=== PATIENT | male | born 1965 | race Caucasian/White ===

== ENCOUNTER 2019-04-14 08:40 | Emergency (ER) | payer BC ==
[~2019-04-14] VITALS: Ht 185 cm; Wt 89.0 kg
[2019-04-14] MEDS ORDERED: LACTATED RINGERS 1,000 ML IV ONE (09:04)
[2019-04-14 09:23] LABS: BASOPHILS % (AUTO) 0 % (0-10); EOSINOPHILS # (AUTO) 0.2 10^3/uL (0.0-0.3); EOSINOPHILS % (AUTO) 2 % (0-10); HEMATOCRIT 44 % (40-54); HEMOGLOBIN 15.7 G/DL (13.3-17.7); LYMPHOCYTES # (AUTO) 2.1 X 10^3 (1.0-4.0); LYMPHOCYTES % (AUTO) 23 % (12-44); MEAN CORPUSCULAR HEMOGLOBIN 36 PG (25-34); MEAN CORPUSCULAR HGB CONC 36 G/DL (32-36); MEAN CORPUSCULAR VOLUME 99 FL (80-99); MEAN PLATELET VOLUME 11.7 FL (7.4-10.4); MONOCYTES % (AUTO) 11 % (0-12); NEUTROPHILS % (AUTO) 65 % (42-75); PLATELET COUNT 179 10^3/uL (130-400); RED CELL DISTRIBUTION WIDTH 11.8 % (10.0-14.5); WHITE BLOOD COUNT 9.3 10^3/uL (4.3-11.0)
--- NOTE | 2019-04-14 09:26 | ED Neurological Problem ---
General Chief Complaint: Neurological Problems Stated Complaint: BILAT LEG NUMBNESS Nursing Triage Note: PT STATES HE HAS HAD A CHEST COLD FOR A FEW DAYS, 2 NIGHTS AGO STARTED HAVING WEAKNESS AND NUMBNESS IN BI LAT LEGS. HAD A PCN SHOT AT THE [facility] YESTERDAY FOR HIS CHEST COLD. ALSO NUMBNESS IN HANDS, NO DIFICULTY SPEAKING. Nursing Sepsis Screen: No Definite Risk Source: patient Exam Limitations: no limitations History of Present Illness Date Seen by Provider: Apr 14, 2019 Time Seen by Provider: 08:57 Initial Comments Here with report of weakness and numbness in his legs and hands. Notes that he fell twice this morning because his legs gave out. Denies any injury. States that he actually had to have help to get here because of the weakness in both of his legs. Has recently had upper respiratory infection and was seen at the [facility] yesterday. He did let them know that he had leg numbness but he did not have weakness at the time. They were concerned about him taking cough medicine. He reports that he was taking Tussin, and went through a bottle of that. Afterwards, because that wasn't working, he went to [facility]. He is taking a drink out of the bottle as needed to control his cough but he has no idea what his dosing as and how much he has taken of that. Timing/Duration: increasing, other (2 days) Severity: moderate Associated Symptoms: No fever/chills, No muscle spasms, No nausea/vomiting; numbness in legs/feet; No slurred speech; trouble walking, weakness Allergies and Home Medications Allergies Coded Allergies: No Known Drug Allergies (Unverified , 09/23/10) Patient Home Medication List Home Medication List Reviewed: Yes Review of Systems Review of Systems Constitutional: see HPI; No chills, No fever Eyes: No Symptoms Reported Ears, Nose, Mouth, Throat: denies ear pain, denies throat pain Respiratory: cough, short of breath Cardiovascular: No chest pain, No edema Gastrointestinal: No nausea, No vomiting Genitourinary: no symptoms reported Musculoskeletal: muscle pain, muscle weakness Skin: no symptoms reported Psychiatric/Neurological: Tingling, Weakness All Other Systems Reviewed Negative Unless Noted: Yes Past Xuncniz-Mvdgec-Ylstox Hx Past Med/Social Hx: Reviewed Nursing Past Med/Soc Hx Patient Social History Alcohol Use: Occasionally Uses Alcohol Beverage of Choice: Whiskey Recreational Drug Use: Yes (SMOKES 1PPD) Smoking Status: Current Everyday Smoker Type Used: Cigarettes Recent Foreign Travel: No Contact w/Someone Who Travel: No Recent Infectious Disease Expo: No Recent Hopitalizations: No Physical Abuse: No Sexual Abuse: No Mistreated: No Fear: No Seasonal Allergies Seasonal Allergies: No Past Medical History Surgeries: Yes (BI LAT CARPEL TUNNEL) Orthopedic Respiratory: No Cardiac: No Neurological: No Genitourinary: No Gastrointestinal: No Musculoskeletal: No Endocrine: No HEENT: No Cancer: No Psychosocial: No Integumentary: No Family Medical History Reviewed Nursing Family Hx Heart Disease, Cancer, Hypertension, Stroke Physical Exam Vital Signs Vital Signs - First Documented 04/14/19 08:51 Temp 36.7 Pulse 92 Resp 20 B/P (MAP) 184/110 (134) Pulse Ox 98 O2 Delivery Room Air Capillary Refill : Less Than 3 Seconds Height, Weight, BMI Height: '" Weight: lbs. oz. kg; 26.00 BMI Method: General Appearance: WD/WN, mild distress HEENT: PERRL/EOMI, pharynx normal Neck: full range of motion, supple, lymphadenopathy (R), lymphadenopathy (L) Respiratory: lungs clear, normal breath sounds Cardiovascular: regular rate, rhythm, no murmur Peripheral Pulses: 2+ Dorsalis Pedis (R), 2+ Left Dors-Pedis (L), 2+ Radial Pulses (R), 2+ Radial Pulses (L) Gastrointestinal: non tender, soft Extremities: non-tender, no pedal edema, no calf tenderness Neurologic/Psychiatric: alert, normal mood/affect Crainal Nerves: normal hearing, normal speech, PERRL Motor/Sensory: other (evaluation of the lower extremities reveals bilateral lower extremities with good distal pulses and normal capillary refill. Patient retained sensation but states that he is numb throughout the feet. He is able to discern toe touch and position in the great toes. He is able to discern touch and the fifth toes bilateral but has some difficulty with position sense of those toes.) Skin: normal color, warm/dry Procedures/Interventions Discussed Risk,Benefits: Yes Patient Consents: Yes Position: L4-5, Sitting Sterile Technique: Yes Opening Pressure: not assessed Fluid Color: clear Size of Disposal Tray Used: Adult tolerated procedure well without complications Progress/Results/Core Measures Results/Orders Lab Results Laboratory Tests Test 04/14/19 09:05 04/14/19 10:00 04/14/19 13:15 Range/Units White Blood Count 9.3 4.3-11.0 10^3/uL Red Blood Count 4.40 4.35-5.85 10^6/uL Hemoglobin 15.7 13.3-17.7 G/DL Hematocrit 44 40-54 % Mean Corpuscular Volume 99 80-99 FL Mean Corpuscular Hemoglobin 36 H 25-34 PG Mean Corpuscular Hemoglobin Concent 36 32-36 G/DL Red Cell Distribution Width 11.8 10.0-14.5 % Platelet Count 179 130-400 10^3/uL Mean Platelet Volume 11.7 H 7.4-10.4 FL Neutrophils (%) (Auto) 65 42-75 % Lymphocytes (%) (Auto) 23 12-44 % Monocytes (%) (Auto) 11 0-12 % Eosinophils (%) (Auto) 2 0-10 % Basophils (%) (Auto) 0 0-10 % Neutrophils # (Auto) 6.0 1.8-7.8 X 10^3 Lymphocytes # (Auto) 2.1 1.0-4.0 X 10^3 Monocytes # (Auto) 1.0 0.0-1.0 X 10^3 Eosinophils # (Auto) 0.2 0.0-0.3 10^3/uL Basophils # (Auto) 0.0 0.0-0.1 10^3/uL Erythrocyte Sedimentation Rate 16 0-30 MM/HR Sodium Level 140 135-145 MMOL/L Potassium Level 3.8 3.6-5.0 MMOL/L Chloride Level 103 98-107 MMOL/L Carbon Dioxide Level 23 21-32 MMOL/L Anion Gap 14 5-14 MMOL/L Blood Urea Nitrogen 13 7-18 MG/DL Creatinine 0.96 0.60-1.30 MG/DL Estimat Glomerular Filtration Rate > 60 BUN/Creatinine Ratio 14 Glucose Level 104 70-105 MG/DL Calcium Level 10.0 8.5-10.1 MG/DL Corrected Calcium 8.5-10.1 MG/DL Magnesium Level 2.1 1.6-2.4 MG/DL Total Bilirubin 0.9 0.1-1.0 MG/DL Aspartate Amino Transf (AST/SGOT) 44 H 5-34 U/L Alanine Aminotransferase (ALT/SGPT) 37 0-55 U/L Alkaline Phosphatase 82 40-136 U/L C-Reactive Protein High Sensitivity 0.46 0.00-0.50 MG/DL Total Protein 8.4 H 6.4-8.2 GM/DL Albumin 4.6 H 3.2-4.5 GM/DL TSH [place] Testing 3.75 0.35-4.94 UIU/ML Salicylates Level < 5.0 L 5.0-20.0 MG/DL Acetaminophen Level < 10 L 10-30 UG/ML Urine Color YELLOW Urine Clarity CLEAR Urine pH 5 5-9 Urine Specific [place] 1.020 1.016-1.022 Urine Protein 2+ H NEGATIVE Urine Glucose (UA) NEGATIVE NEGATIVE Urine Ketones 2+ H NEGATIVE Urine Nitrite NEGATIVE NEGATIVE Urine Bilirubin NEGATIVE NEGATIVE Urine Urobilinogen 1 NORMAL MG/DL Urine Leukocyte Esterase 1+ H NEGATIVE Urine RBC (Auto) 4+ H NEGATIVE Urine RBC 2-5 H /HPF Urine WBC 0-2 /HPF Urine Squamous Epithelial Cells 0-2 /HPF Urine Crystals NONE /LPF Urine Bacteria TRACE /HPF Urine Casts PRESENT /LPF Urine Hyaline Casts 2-5 H /LPF Urine Mucus SMALL H /LPF Urine Culture Indicated NO CSF Tube Number 4 CSF Appearance CLEAR CSF Color COLORLESS CSF WBC 3 0-5 CELLS CSF RBC 1 H 0-0 CELLS CSF Lymphocytes % CSF Mononuclear WBCs % CSF Polynuclear WBCs % CSF Glucose 64 50-80 MG/DL CSF Total Protein 62 H 15-40 MG/DL My Orders Orders - OPAL ROACH MD Cbc With Automated Diff (04/14/19 09:04) Comprehensive Metabolic Panel (04/14/19 09:04) Hs C Reactive Protein (04/14/19 09:04) Magnesium (04/14/19 09:04) Thyroid Analyzer (04/14/19 09:04) Erythrocyte Sedimentation Rate (04/14/19 09:04) Chest 1 View, Ap/Pa Only (04/14/19 09:04) Ed Iv/Invasive Line Start (04/14/19 09:04) Lactated Ringers (Lr 1000 Ml Iv Solution (04/14/19 09:04) Ekg Tracing (04/14/19 09:04) Acetaminophen (04/14/19 09:26) Salicylate (04/14/19 09:26) Ua Culture If Indicated (04/14/19 09:26) Ct Lumbar Spine Wo (04/14/19 09:54) Ketorolac Injection (Toradol Injection) (04/14/19 10:43) Ct Head Wo (04/14/19 10:59) Morphine Injection (Morphine Injection (04/14/19 11:15) Lidocaine/Epi 2% 1:100,000 (Xylocaine/Ep (04/14/19 12:45) Csf Cell Count (04/14/19 13:19) Csf Glucose (04/14/19 13:19) Csf Total Protein (04/14/19 13:19) Csf Culture (04/14/19 13:19) Virus Culture (04/14/19 13:19) Morphine Injection (Morphine Injection (04/14/19 13:45) Nicotine Patch (Nicoderm Patch) (04/14/19 16:00) Medications Given in ED Current Medications Medications Dose Ordered Sig/[place] Route Start Time Stop Time Status Last Admin Dose Admin Lactated Ringer's 1,000 ml @ 0 mls/hr Q0M ONCE IV 04/14/19 09:04 04/14/19 09:10 DC 04/14/19 09:26 1,000 MLS/HR Lidocaine/ Epinephrine 20 ml ONCE ONCE INJ 04/14/19 12:45 04/14/19 12:46 DC 04/14/19 13:15 20 ML Morphine Sulfate 5 mg ONCE ONCE IVP 04/14/19 11:15 04/14/19 11:16 DC 04/14/19 11:20 5 MG Morphine Sulfate 5 mg ONCE ONCE IVP 04/14/19 13:45 04/14/19 13:46 DC 04/14/19 13:44 5 MG Nicotine 21 mg ONCE ONCE TD 04/14/19 16:00 04/14/19 16:01 DC 04/14/19 16:18 21 MG Vital Signs/I&O 04/14/19 04/14/19 04/14/19 04/14/19 08:51 11:16 11:20 13:44 Temp 36.7 36.7 36.7 36.7 Pulse 92 Resp 20 B/P (MAP) 184/110 (134) Pulse Ox 98 O2 Delivery Room Air Blood Pressure Mean: 134 POS Progress Progress Note : Progress Note Seen and evaluated. IV, labs, UA, EKG, chest x-ray and LR 1 L bolus ordered. Monitor patient. CT of the lumbar spine ordered. 1200: Patient received Toradol 30 mg IV and morphine 5 mg IV and pain is a little better now. We will go and get CT of the head. 1245: CT complete and shows no acute significant findings. We have discussed at length regarding the patient's clinical course with the patient. No obvious findings currently. This may be adverse effects related to dextromethorphan but patient is still very weak and that does not fit with toxicity of this drug. Patient has had recent viral upper respiratory infection and now has progressing weakness distally to centrally in the feet and legs with decreased sensation and lower extremities and hands. Concerns about Guillain- Tracy. This apparently is been going on for at least a few days. Given this concern, LP is indicated. This was discussed with the patient and family who elected to proceed. Lumbar puncture risk and benefits discussed with patient and family and patient agreed to procedure. Consent signed and on chart. 1322: Labs for lumbar pressure sent. Lumbar puncture complete and patient tolerated procedure well with no palpitations. I did make contact with [facility] pending discussion with on-call neurologist. 1349: I did speak with Dr. Flores, on-call for stroke neurology and discussed the case with her. She agrees that there is concerns for Guillain-Tracy. No new testing other than lumbar puncture that has started ordered required. I did speak with the on-call triage nurse for transfer to [facility] for neurology. Dr. Crocker, neurology program manager transportation, excessive sedation for admission per triage nurse. No new orders. Pending bed assignment patient will transfer. 1400: I did discuss the case with the patient and his family and they agree to transfer and patient will go by EMS. Morphine 5 mg IV given for leg discomfort which did help significantly earlier. 1415: Lumbar puncture results reviewed. Pending Gram stain. Results noted above. Protein is elevated. Culture and viral culture ordered on CSF fluid. Cytology also ordered. Gram stain shows no wbc's and no bacteria. 1550: Still pending transfer. Nicotine patch 21 mg ordered as patient has long-term smoking history and is beginning to feel the withdrawal significantly. 1558: Bed received. EMS activated. 1621: Morphine 5 mg IV for continued leg discomfort. Pending EMS. Initial ECG Impression Date: Apr 14, 2019 Initial ECG Impression Time: 09:15 Initial ECG Rate: 90 Initial ECG Rhythm: Normal Sinus Comment Sinus rhythm with premature atrial complexes. No evidence of ST elevation ND. Normal axis. Similar to previous of 09/23/10. Interpreted by me. Diagnostic Imaging Diagonstic Imaging: Xray Plain Films/CT/US/NM/MRI: chest Comments [facility] POS [place] POS NAME: SASHA BLACKMON [facility] REC#: [id number] PT STATUS: REG ER : 1965 PHYSICIAN: OPAL ROACH MD ADMIT DATE: 04/14/19/ER Draft POSDate of Exam:04/14/19 CHEST 1 VIEW, AP/PA ONLY EXAMINATION: Chest radiograph, portable AP view. DATE: 04/14/2019 9:34 AM hours. INDICATION: 53-year-old male, weakness and numbness. COMPARISON: September 23, 2010. FINDINGS: Heart size and mediastinal contours are unremarkable. There is no identified pneumothorax. There is no large pleural effusion. There is no identified focal airspace consolidation. IMPRESSION: No identified acute cardiopulmonary abnormality. Dictated on workstation # [id number] Dict: 04/14/19 0938 Trans: 04/14/19 0941 [facility] [id number] Interpreted by: SELENE WEATHERS MD Electronically signed by: Diagonstic Imaging: CT Plain Films/CT/US/NM/MRI: other Comments [facility]. POS [place] POS NAME: SASHA BLACKMON [facility] REC#: [id number] PT STATUS: REG ER : 1965 PHYSICIAN: OPAL ROACH MD ADMIT DATE: 04/14/19/ER Draft POSDate of Exam:04/14/19 CT LUMBAR SPINE WO PROCEDURE: CT lumbar spine without contrast. TECHNIQUE: Multiple contiguous axial images were obtained through the lumbar spine without the use of intravenous contrast. Sagittal and coronal reformations were then performed. Auto Exposure Controls were utilized during the CT exam to meet ALARA standards for radiation dose reduction. INDICATION: Low back pain with tingling in the legs as well as numbness. No prior studies are available for comparison. FINDINGS: Curvature of the lumbar spine is normal. There is minimal retrolisthesis of L5 on S1. The vertebral body heights are well-maintained. No acute compression fracture is detected. The bony spinal canal appears to be patent. Disc spaces are fairly well-maintained. There is mild degenerative facet disease L5-S1 level. There are atherosclerotic changes in the abdominal aorta but the aorta is normal caliber. IMPRESSION: Mild lower lumbar spondylosis. No acute bony abnormality is detected. Dictated on workstation # [id number] Dict: 04/14/19 1018 Trans: 04/14/19 1021 [id number] Interpreted by: JEAN CAZARES MD Electronically signed by: Darlingonstic Imaging: CT Plain Films/CT/US/NM/MRI: head Comments [facility]. POS [place] POS NAME: SASHA BLACKMON [facility] REC#: [id number] PT STATUS: REG ER : 1965 PHYSICIAN: OPAL ROACH MD ADMIT DATE: 04/14/19/ER Draft POSDate of Exam:04/14/19 CT HEAD WO PROCEDURE: CT head without contrast. TECHNIQUE: Multiple contiguous axial images were obtained through the brain without the use of intravenous contrast. Auto Exposure Controls were utilized during the CT exam to meet ALARA standards for radiation dose reduction. DATE: April 14, 2019. COMPARISON: None. INDICATION: 53-year-old male, difficulty walking. Lower extremity weakness. FINDINGS: There is a round CSF attenuation focus in the left lower basal ganglia on axial image 10 which is CSF in attenuation. This is compatible with a chronic long-standing etiology. This may relate to remote prior lacunar infarct or very prominent perivascular space. The ventricles and cerebral spinal fluid spaces are of normal size and configuration for the patient's age. There is no mass effect or midline shift. There is no acute intracranial hemorrhage. There is no abnormal extra-axial fluid collection. The visualized portions of the paranasal sinuses, mastoid air cells and middle ears are well aerated. IMPRESSION: 1. No identified acute intracranial abnormality. 2. Rounded area of CSF attenuation in the left lower basal ganglia which may relate to remote prior infarct or very prominent perivascular space. Dictated on workstation # [id number] Dict: 04/14/19 1200 Trans: 04/14/19 1217 CV [id number] Interpreted by: SELENE WEATHERS MD Electronically signed by: Departure Impression Primary Impression: Guillain Tracy syndrome Disposition: 02 XFER S[facility]-TRM HOSP Condition: Stable Transfer Transfer Reason: Exceeds level of care Time Spoke to Accepting Phy: 13:49 Transfer Facility: [place], [place], Dr. Crocker accepting Method of Transfer: EMS Departure-Patient Inst. Referrals: NO,LOCAL PHYSICIAN (PCP/Family) Primary Care Physician Scripts No Active Prescriptions or Reported Meds OPAL ROACH MD Apr 14, 2019 09:26 POS
--- NOTE | 2019-04-14 09:42 | Diagnostic Imaging Report ---
EXAMINATION: Chest radiograph, portable AP view. DATE: 04/14/2019 9:34 AM hours. INDICATION: 53-year-old male, weakness and numbness. COMPARISON: September 23, 2010. FINDINGS: Heart size and mediastinal contours are unremarkable. There is no identified pneumothorax. There is no large pleural effusion. There is no identified focal airspace consolidation. IMPRESSION: No identified acute cardiopulmonary abnormality. Dictated by: Dictated on workstation # [id number]
[2019-04-14 09:47] LABS: ALANINE AMINOTRANSFERASE 37 U/L (0-55); ALBUMIN 4.6 GM/DL (3.2-4.5); ALKALINE PHOSPHATASE 82 U/L (40-136); BILIRUBIN,TOTAL 0.9 MG/DL (0.1-1.0); BUN/CREATININE RATIO 14; CARBON DIOXIDE 23 MMOL/L (21-32); CHLORIDE 103 MMOL/L (98-107); CREATININE SERUM 0.96 MG/DL (0.60-1.30); GFR ESTIMATED > 60; GLUCOSE 104 MG/DL (70-105); MAGNESIUM 2.1 MG/DL (1.6-2.4); POTASSIUM 3.8 MMOL/L (3.6-5.0); SODIUM 140 MMOL/L (135-145); TOTAL PROTEIN 8.4 GM/DL (6.4-8.2)
[2019-04-14 09:52] LABS: ACETAMINOPHEN < 10 UG/ML (10-30)
[2019-04-14 09:56] LABS: SALICYLATE < 5.0 MG/DL (5.0-20.0)
[2019-04-14 10:07] LABS: ERYTHROCYTE SEDIMENTATION RATE 16 MM/HR (0-30); TSH (THYROID ANALYZER) 3.75 UIU/ML (0.35-4.94)
[2019-04-14 10:08] LABS: BILIRUBIN,URINE NEGATIVE (NEGATIVE); CLARITY,URINE CLEAR; COLOR,URINE YELLOW; GLUCOSE, URINE (UA) NEGATIVE (NEGATIVE); KETONES,URINE 2+ (NEGATIVE); LEUKOCYTE ESTERASE ,URINE 1+ (NEGATIVE); NITRITE,URINE NEGATIVE (NEGATIVE); PH,URINE 5 (5-9); PROTEIN,URINE 2+ (NEGATIVE)
[2019-04-14 10:19] LABS: BACTERIA,URINE TRACE /HPF; SQUAMOUS EPITHELIAL CELL,UR 0-2 /HPF; WBC,URINE 0-2 /HPF
--- NOTE | 2019-04-14 10:22 | Diagnostic Imaging Report ---
PROCEDURE: CT lumbar spine without contrast. TECHNIQUE: Multiple contiguous axial images were obtained through the lumbar spine without the use of intravenous contrast. Sagittal and coronal reformations were then performed. Auto Exposure Controls were utilized during the CT exam to meet ALARA standards for radiation dose reduction. INDICATION: Low back pain with tingling in the legs as well as numbness. No prior studies are available for comparison. FINDINGS: Curvature of the lumbar spine is normal. There is minimal retrolisthesis of L5 on S1. The vertebral body heights are well-maintained. No acute compression fracture is detected. The bony spinal canal appears to be patent. Disc spaces are fairly well-maintained. There is mild degenerative facet disease L5-S1 level. There are atherosclerotic changes in the abdominal aorta but the aorta is normal caliber. IMPRESSION: Mild lower lumbar spondylosis. No acute bony abnormality is detected. Dictated by: Dictated on workstation # [id number]
[2019-04-14] MEDS ORDERED: KETOROLAC 30 MG/ML VIAL IVP STA (10:43)
[2019-04-14] MEDS ORDERED: morphine INJ 10 MG/ML 1ML (SYR OR VIAL) IVP ONE ×3 (11:15→16:30)
--- NOTE | 2019-04-14 12:17 | Diagnostic Imaging Report ---
PROCEDURE: CT head without contrast. TECHNIQUE: Multiple contiguous axial images were obtained through the brain without the use of intravenous contrast. Auto Exposure Controls were utilized during the CT exam to meet ALARA standards for radiation dose reduction. DATE: April 14, 2019. COMPARISON: None. INDICATION: 53-year-old male, difficulty walking. Lower extremity weakness. FINDINGS: There is a round CSF attenuation focus in the left lower basal ganglia on axial image 10 which is CSF in attenuation. This is compatible with a chronic long-standing etiology. This may relate to remote prior lacunar infarct or very prominent perivascular space. The ventricles and cerebral spinal fluid spaces are of normal size and configuration for the patient's age. There is no mass effect or midline shift. There is no acute intracranial hemorrhage. There is no abnormal extra-axial fluid collection. The visualized portions of the paranasal sinuses, mastoid air cells and middle ears are well aerated. IMPRESSION: 1. No identified acute intracranial abnormality. 2. Rounded area of CSF attenuation in the left lower basal ganglia which may relate to remote prior infarct or very prominent perivascular space. Dictated by: Dictated on workstation # [id number]
[2019-04-14] MEDS ORDERED: LIDOCAINE/EPI 2% 1:100,00 (XYLOCAINE) 20 ML VIAL INJ ONE (12:45)
[2019-04-14 13:55] LABS: APPEARANCE,CSF CLEAR; COLOR,CSF COLORLESS; RED BLOOD CELL,CSF 1 CELLS (0-0); WHITE BLOOD CELL,CSF 3 CELLS (0-5)
[2019-04-14 13:56] LABS: CSF TUBE NUMBER 4
[2019-04-14 14:04] LABS: CSF GLUCOSE 64 MG/DL (50-80); CSF TOTAL PROTEIN 62 MG/DL (15-40)
--- NOTE | 2019-04-14 15:44 | NUR ---
REPORT GIVEN TO SERGE BERMAN. PT HAS NO NEEDS AT THIS TIME, WAS ASSISTED TO A W/C FOR COMFORT BY THIS RN.
[2019-04-14] MEDS ORDERED: NICOTINE 21 MG (NICODERM) PATCH TD ONE (16:00)
--- NOTE | 2019-04-14 16:00 | NUR ---
Pharmacy called at this time for nictotine patch
--- NOTE | 2019-04-14 16:03 | NUR ---
[facility] [place] dispatch called at this time for transport
[2019-04-14 16:47] VITALS: BP 150/116
[2019-05-04] MEDS ORDERED: CAPS60CR4 TP (12:19)
== END 2019-04-14 16:47 | disposition short-term general hospital (02) ==
LOC: EDUNIT# 08:40 → ER 08:44
DX: G61.0 Guillain-Barre syndrome (principal); F17.210 Nicotine dependence, cigarettes, uncomplicated; Z79.82 Long term (current) use of aspirin
CPT/HCPCS: 36415; 62270; 70450; 71045; 72131; 80053; 80329; 81000; 82945; 83735; 84157; 84443; 85025; 85652; 86141; 87070; 87205; 87252; 88112; 89051; 93005; 96361; 96374; 96375; 96376

== ENCOUNTER 2019-05-04 08:47 | Inpatient (IN) | payer BC ==
[~2019-05-04] VITALS: Ht 185.5 cm; Wt 82.0 kg
[2019-05-04] MEDS ORDERED: MELATONIN 3 MG TABLET PO PRN (10:30)
[2019-05-04] MEDS ORDERED: ONDANSETRON 4 MG (ZOFRAN) ORAL DISSOLVE TAB PO PRN (10:30)
[2019-05-04] MEDS ORDERED: ALPRAZolam 0.25 MG (XANAX) TAB PO PRN (10:30)
[2019-05-04] MEDS ORDERED: guaiFENesin/CODEINE (ROBITUSSIN AC) 10ML UDC PO PRN (10:30)
[2019-05-04] MEDS ORDERED: DOCUSATE SODIUM 100 MG (COLACE) CAP PO PRN (10:30)
[2019-05-04] MEDS: ENOXAPARIN 40 MG/0.4 ML (LOVENOX) SYR SC SCH (10:30)
[2019-05-04] MEDS ORDERED: CALCIUM CARBONATE 500 MG (TUMS) TAB.CHEW PO PRN (10:30)
[2019-05-04] MEDS ORDERED: diphenhydrAMINE 25 MG TAB (BENADRYL) PO PRN (10:30)
[2019-05-04] MEDS ORDERED: BISACODYL 10 MG SUPP (DULCOLAX) PR PRN (10:30)
[2019-05-04] MEDS ORDERED: ACETAMINOPHEN 500 MG TAB (TYLENOL) PO PRN (10:30)
[2019-05-04] MEDS ORDERED: IBUPROFEN TABLET 200 MG TAB PO PRN (10:30)
[2019-05-04] MEDS ORDERED: FLEET ENEMA ADULT 1 EA BTL PR PRN (10:30)
[2019-05-04] MEDS ORDERED: LACTULOSE SYRUP 10GM/15ML (ENULOSE) 30ML UDC PO PRN (10:30)
[2019-05-04] MEDS ORDERED: LOPERAMIDE 2 MG (IMODIUM) TABLET PO PRN (10:30)
[2019-05-04] MEDS ORDERED: NF-ESOM40C PEG (12:19)
[2019-05-04] MEDS ORDERED: MELA5CAP PEG (12:19)
[2019-05-04] MEDS ORDERED: CALC500T7 PEG (12:19)
[2019-05-04] MEDS ORDERED: CYAN500T62 PEG (12:19)
[2019-05-04] MEDS ORDERED: DEXT15DR23 OU (12:19)
[2019-05-04] MEDS ORDERED: CAPS60CR3 TP (12:19)
[2019-05-04] MEDS ORDERED: AMIT25TA9 PEG (12:19)
[2019-05-04] MEDS ORDERED: LIDO700A45 TP (12:19)
[2019-05-04] MEDS ORDERED: IBUP-2037 PEG (12:19)
[2019-05-04] MEDS ORDERED: DICL100G18 TP (12:19)
[2019-05-04] MEDS ORDERED: GABA250S2 PEG (12:19)
[2019-05-04] MEDS ORDERED: FOLI1TAB24 PEG (12:19)
[2019-05-04] MEDS ORDERED: [UNRECOGNIZED DRUG - CODE] TOP (12:19)
[2019-05-04] MEDS ORDERED: PETR113O TP (12:25)
[2019-05-04] MEDS ORDERED: [UNRECOGNIZED DRUG - CODE] PEG (12:25)
[2019-05-04] MEDS ORDERED: GUAI5SYR PO (12:25)
[2019-05-04] MEDS ORDERED: MAGN800O PEG (12:25)
[2019-05-04] MEDS ORDERED: THIA100T68 PEG (12:25)
[2019-05-04] MEDS ORDERED: ONDA4AMP IJ (12:25)
[2019-05-04] MEDS ORDERED: OXYC5SOL19 PEG (12:25)
[2019-05-04 12:30] VITALS: BP 147/68
--- NOTE | 2019-05-04 12:35 | NUR ---
UPDATED MED REC WITH DISCHARGE ORDERS FROM . THE ONLY MEDICATION THAT WAS CONTINUED WAS ROBITUSSIN ARIELA PRN THE REST WERE ALL NEW MEDICATIONS. I WILL REMOVE THE NEW MEDICATIONS AT A LATER DATE FOR PROPER DISCHARGE TO HOME ORDERS. Addendum: 05/04/19 at 1631 by MARCO YEPEZ silverware etcher REMOVED THE 19 NEW MEDICATIONS ORDERED AT DISCHARGE, LEFT THE HAKEEM TITUS NEEDED THAT WAS CONTINUED.
--- NOTE | 2019-05-04 12:50 | NUR ---
Sasha Blackmon (Bill) admitted to room 222-1, with an admitting diagnosis of Weakness and Guillain [place] Syndrome, on 05/04/19 from [facility] via Stretcher/Ambulance, accompanied by staff members.SASHA BLACKMON introduced to surroundings, call light, bed controls, phone, TV, temperature control, lights, meal times, smoking policy, visitor policy, side rail policy, bathrooms and showers. Patient Rights given to patient in the handbook.SASHA BLACKMON verbalizes understanding that [facility] is not responsible for the loss or damage to any personal effects or valuables that are kept in the patients possession during their hospitalization. The following Patient Care Plans were discussed with the Patient: Discharge Planning,Guillain [place] Syndrome, Impaired Mobility, and Pressure Ulcers. SASHA BLACKMON verbalizes understanding of Interdisciplinary Patient Education. Patient received Patient Rights Booklet, which includes Privacy Act Statement and Data Collection Information Summary.
--- NOTE | 2019-05-04 13:36 | ST Cognitive Linguistic Eval ---
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 Patient lives with his son in a single level home. He was indepedent for his daily needs. Subjective The patient was cooperative with the cognitive assessment. Language Eval: Auditory Comprehends Simple Yes/No Ques: Functional Indent/Objects Multiple St: Functional Ident/Pics in Multiple St: Functional Follows 1-Step Commands: Functional Follows Complex Directions: Functional Follows General Conversations: Functional Language Eval: Verbal Language Completes Spontaneous Greeting: Functional Produces Auto, Serial Info: Functional Imitates Simple Words/Phrases: Functional Word Finding: Functional Requests Basic Needs: Functional States Basic Personal Info: Functional Expresses Complex Ideas: Functional Objective Cognitive Domain Attention: WNL Memory: Mild Problem Solving: Functional Executive Functions: WNL Visuospatial Skills: WNL Composite Severity Rating: WNL Clock Drawing Severity Rating: WNL Objective Formal/Standardized Tests [facility] ([facility]) Results 27/30, within normal range of function Oral Motor/Speech Production Within Normal Limits Impression Patient is a 53 year old male who was admitted to the ARU following 19 days at for onset of Gullaine-Sanders Syndrome. Patient was given the SLUMS at bedside with a score of 27/30 obtained. The patient does not require skilled ST for cognitive therapy. The patient does have a new PEG placement for nutritional needs. Patient will be followed by ST according to physician directives. Speech Patient Assess Expression of Ideas/Wants: Expression (4) Understanding Verbal Content: Understands (4) Brief Interview-Mental Status: Yes Repetition of Three Words: Three (3) Temporal Orientation: Year: Correct (3) Temporal Orientation: Month: Accurate within 5 days(2) Temporal Orientation: Day: Correct (1) Recall : Wear to say "Sock": Yes, no cue required (2) Recall : Color: Yes, no cue required (2) Recall : Bed: Yes, no cue required (2) Memory/Recall Ability: Current season, That he or she is in a hsp/hsp unit Speech-Plan Patient/Family Goals Patient/Family Goals: Patient plans on returning to his home where he lives with his son upon discharge. Treatment Plan Speech Therapy Treatment Plan: Discontinue ST Patient does not require skilled ST for cognition, however ST will follow patient for dysphagia per physician directives. Treatment Duration: May 04, 2019 Frequency: 1 time per week Estimated Hrs Per Day: .25 hour per day Rehab Potential: Good Barriers to Learning: None identified Pt/Family Agrees to Plan: Yes Safety Risks/Education Teaching Recipient: Patient Teaching Methods: Discussion Response to Teaching: Verbalize Understanding Education Topics Provided: Safety within his room and communication of wants/needs. Time Speech Therapy Time In: 13:10 Speech Therapy Time Out: 13:25 Total Billed Time: 15 Billed Treatment Time 1, SPSNDCOMP CANDE Copeland May 04, 2019 13:36 POS
--- NOTE | 2019-05-04 13:48 | NUR ---
Received pt information on EN orders prior to admit. As we do not carry Isosource, would recommend the following: For bolus feeds, 1 carton TwoCal HN 5x per day with 60 ml flush H2O before and after each bolus. Recommend the addition of 2 packets Beneprotein per day. With flushes, provides 2425 kcal (30 kcal/kg); 112 g Pro (1.4 g Pro/kg); and 1430 ml free water. Would recommend extra fluids as needed for hydration status. If continuous feeding is preferred, would recommend: Jevity 1.5 at goal rate of 65 ml/hr. Begin at 20 ml/hr and increase by 10 ml q6h, as tolerated. Add 1 packet of Beneprotein per day. At goal rate, provides 2365 kcal (29 kcal/kg); 106 g Pro (1.3 g Pro/kg); and 1186 ml free water Flush with 150 ml H2O q4h. With flushes, provides 2086 ml free water. Will continue to follow and reassess as pt needs and status change. Tiffanie Queen, MS, RD, LD [phone]
[2019-05-04] MEDS ORDERED: [UNRECOGNIZED DRUG - OTHER] IJ PRN (15:00)
[2019-05-04] MEDS ORDERED: GABAPENTIN PEG PRN (15:00)
[2019-05-04] MEDS ORDERED: NON-FORMULARY MEDICATION 1 EA EA (Guaifenesin/Dextromethorphan (Guaifenesin Dm Syrup) 10 M PEG PRN (15:00)
[2019-05-04] MEDS ORDERED: ONDANSETRON HCL IJ PRN (15:00)
[2019-05-04] MEDS ORDERED: MAGNESIUM HYDROXIDE PEG PRN (15:00)
[2019-05-04] MEDS ORDERED: EMU OIL TOP PRN (15:00)
[2019-05-04] MEDS ORDERED: NON-FORMULARY MEDICATION 1 EA EA (Dextran 70/Hypromellose (Natural Balance Tears Eye Drop) OU PRN (15:00)
[2019-05-04] MEDS ORDERED: IBUPROFEN PEG PRN (15:00)
[2019-05-04] MEDS ORDERED: CALCIUM CARBONATE 200 MG PEG PRN (15:00)
[2019-05-04] MEDS ORDERED: LIDOCAINE TP PRN (15:00)
[2019-05-04] MEDS ORDERED: DICLOFENAC SODIUM 2 GM TP PRN (15:00)
[2019-05-04] MEDS: HYDROcodone/APAP 5 MG/325 MG (LORTAB) TAB PO PRN ×2 (15:13→20:44)
[2019-05-04] MEDS ORDERED: ONDANSETRON 4 MG/2 ML (SDV) Z0FRAN IV PRN (15:30)
[2019-05-04] MEDS ORDERED: CALCIUM CARBONATE 500 MG (TUMS) TAB.CHEW PEG PRN (15:30)
[2019-05-04] MEDS ORDERED: ARTIFICAL TEARS 0.4 ML UNIT DOSE (REFRESH PLUS) OU PRN (15:30)
[2019-05-04] MEDS ORDERED: IBUPROFEN SUSP 100MG/5ML (MOTRIN) UDC PEG PRN (15:30)
--- NOTE | 2019-05-04 15:36 | Progress Note ---
GLORIA MACHUCA,MED STUDENT 05/04/19 1536: Progress Note Hospital Course: 04/11 One week history of URI, cough, SOB, diarrhea 04/12 Numbness and tingling in hands 04/14 Unable to walk, paralyzed, brought by brother into to [facility] ER. Self reported numbness elbow and knee high with complete paresthesia in hands and feet. Transferred to neurology [facility] and started on IVIG (5 doses in total) Neurologic Findings: Motor strength: 3/5 elbow extension, hand flexion, knee flexion 4/5 finger flexion, knee extension Sensation: diminished to light touch elbow and knee b/l , vibration diminished in MTP, normal in patella Proprioception impaired in hands Romberg sign: untested Cold temp: diminished in elbows and knees 04/19 - developed hypoxia, transferred to NEICU and intubated for suspected PNA. Treated for shock, respiratory acidosis, possible PE w/ TPA, possible PNA with vanc/zosyn, acute respiratory failure 04/20 - developed stage II pressure ulcers on b/l glutei 04/21 Weaning from vent started 04/23 - tonic/clonic seizure lasting one minute overnight, started on Keppra - possible alcohol withdrawal 04/24 - evaluated for ileus w/ gastrografin challenge to r/o SBO 04/26 - extubated 04/28 - evaluated to be stable enough for transfer 04/29 - Evaluated by neurologist again Motor strength: 3/5 hand flexion 4/5 wrist extension, flexion, foot flexion, knee flexion, knee extension, toe flexion, toe extension 5/5 strength in shoulder abduction, elbow flexion, elbow extension diffusely arreflexic b/l 05/02 - PEG tube placed 05/04/2019 Motor - Transferred to [facility] IRf Neuro Test CN 2-12 intact b/l 5/5 in Field Auto Appraiser strength, elbow flexion, extension, shoulder abduction, adduction, hip flexion, extension, knee flexion, extension, hip ab/adduction 3/5 in dorsiflexion and plantarflexion Arreflexic b/l for triceps, brachioradialis, patellar and ankle Sensation intact b/l except light touch in hands/feet below wrist/ankle he interprets as pins and needles (pain disappears with gabapentin admin) pulses 2/4, posterior tibial and radial Denies bowel/bladder incontinence difficulty with zmyj-mp-euea, may have been limited by decreased plantar/dorsiflexion in ankles Short shuffling gait with heavy assistance Suspected etiology: Recent URI suspected viral infection. Relative risk for GBS increases 7% after viral infection. Less likely etiologies: CMV, EBV, HIV, Campylobacter, Mycoplasma pneumoniae (his PNA occurred after onset of GBS symptoms) Barriers Poor family support but son does live at home Dysphagia continues PEG tube in place 3-5 stairs leading up to house Pt able to walk with assistance but is very unsteady has no medical equipment at home JYOTSNA ACKERMAN DO 05/04/198: Supervisory-Addendum Brief Verification & Attestation Participated in pt care: history, MDM, physical Personally performed: exam, history, MDM, supervision of care Care discussed with: Medical Student Procedures: n/a Results interpretation: Verified all documentation Verification and Attestation of Medical Student E/M Service A medical student performed and documented this service in my presence. I reviewed and verified all information documented by the medical student and made modifications to such information, when appropriate. I personally performed the physical exam and medical decision making. Jyotsna Ackerman, May 04, 2019,21:28 GLORIA MACHUCA,MED STUDENT May 04, 2019 15:36 JYOTSNA SCHWARZ DO May 04, 2019 21:28 POS
--- NOTE | 2019-05-04 15:40 | Physical Therapy Evaluation ---
PT Evaluation-General Medical Diagnosis Admission Date May 04, 2019 at 12:44 Medical Diagnosis: Gullain-barre Syndrome Onset Date: May 04, 2019 Therapy Diagnosis Therapy Diagnosis: abnormal gait Precautions Precautions/Isolations: Aspiration, Fall Prevention, Standard Precautions, Pressure Ulcer Referral Physician: Tyron Reason for Referral: Evaluation/Treatment Medical History Current History Pt transferred to this facility from [facility] post hospitalization for Guillain- [place] syndrome. He had a lengthy hospital stay that was complicated with sepsis, pneumonia and acute respiratory failure. He currently has a peg tube and is NPO> Reviewed History: Yes Social History Home: Single Level Current Living Status: Children (his son lives with him) Entry Into Home: Stairs Without Railing PT Steps Into Home: 3 Prior Prior Level of Function SCALE: Activities may be completed with or without assistive devices. 0-Dcmxogqbpp-eoqxdsl completes the activity by him/herself with no assistance fr om a helper. 5-Set-up or Clean-up Assistance-helper sets up or cleans up; patient completes activity. [place] assists only prior to or following the activity. 4-Supervision or Touching Assistance-helper provides verbal cues and/or touching/steadying and/or contact guard assistance as patient completes activity. Assistance may be provided throughout the activity or intermittently. 3-Partial/Moderate Assistance-helper does LESS THAN HALF the effort. [place]nett lifts, holds or supports trunk or limbs, but provides less than half the effort. 2-Substantial/Maximal Assistance-helper does MORE THAN HALF the effort. [place] lifts or holds trunk or limbs and provides more than half the effort. 4-Fozhnigek-uwrqlt does ALL the effort. Patient does none of the effort to complete the activity. Or, the assistance of 2 or more helpers is required for the patient to complete the activity. If activity was not attempted, code reason: 7-Patient Refused. 9-Not Applicable-not attempted and the patient did not perform the activity before the current illness, exacerbation or injury. 10-Not Attempted due to Environmental Limitations-(lack of equipment, weather restraints, etc.). 88-Not Attempted due to Medical Conditions or Safety Concerns. 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 PT Evaluation-Current Subjective Pt agreeable. Reports he is anxious to do therapy and get better so he can return home. Pain Numeric Pain Scale: 4 Location Body Site: Foot (B) Pain Description: Tingling Pt/Family Goals Patient's goal is to return home with his son. His son has Asperger's Syndrome, but is able to care for himself. Objective Patient Orientation: Person, Place, Time, Situation Attachments: PEG Tube ROM/Strength ROM Lower Extremities WNL Strength Lower Extremities Right LE strength is grossly 3-/5; left LE strength is grossly 3/5. Muscle fatigue quickly with upright mobility Integumentary/Posture Integumentary refer to nursing notes. Bowel Incontinence: No Bladder Incontinence: No Posture rounded shoulders and forward head, he is able to correct with cuing. Neuromuscular (Tone, Coordination, Reflexes) intact but delayed coordination with fatigue. Sensory Vision: Wears Glasses Hearing: Functional Sensation Right Lower Extremit: Intact Sensation Left Lower Extremity: Intact Transfers Roll Left to Right (QC): 4 Sit to Lying (QC): 3 Lying to Sitting/Side of Bed(Q: 3 Sit to Stand (QC): 3 (min assist to come to a stand and cues for hand placement for safety) Chair/Dct-wj-Jpvuk Xfer(QC): 4 Car Transfer (QC): 3 Pt needs light assist with all transfers due to LE weakness Pt scored a 3 on toilet transfer. Gait Does the Patient Walk?: Yes Mode of Locomotion: Walk Anticipated Mode of Locomotion: Walk Walk 10 feet (QC): 4 Walk 50 ft with 2 Turns(QC): 3 (min assist for balance and safety) Walk 150 ft (QC): 3 Walking 10ft/uneven surface-QC: 3 Gait Assistive Device: FWW Comments/Gait Description Narrow THALIA with heel strike/toe off diminshing with fatigue; in addition as he tires he begins to scissor and demonstrate impaired balacne and safety with gait; relies heavily on walker and requires min assist at the gait belt; responds well to verbal cues for correction. Wheelchair Training Does the Pt Use a Wheelchair?: No Wheel 50 ft with 2 turns (QC): 9 Wheel 150 ft (QC): 9 Type of Wheelchair: Manual Stairs #of Steps: 4 1 Step (curb) (QC): 3 4 Steps (QC): 3 12 Steps (QC): 88 Balance Sitting Static: Good Sitting Dynamic: Good Standing Static: Fair Standing Dynamic: Fair Picking up an Object (QC): 88 Treatment Co treat with OT. The skill of 2 clinicians indicated due to the need for skilled cues for task completion (OT) as well as need for assist with self care and use of UE's as PT addressed functional static and dynamic balance in sitting, standing and transitional movements. Worked on functional transfers, gait, self care and mobility in varied environments. Assessment/Needs Pt present post lengthy hospital stay with decreased functional strength and balance that impair his ability to complete bed mobility, transfers and gait. He is unsafe to mobilize without assist and is at risk for falls. He will benefit from skilled PT to address his deficits to allow him to safely return home and care for himself. Rehab Potential: Good PT Short Term Goals Short Term Goals Time Frame: May 12, 2019 Roll Left & Right: 4 Sit to lyin Lying to sitting on side of be: 4 Sit to stand: 4 Chair/mod-xz-eijcr transfer: 4 Toilet transfer: 4 Car transfer: 4 Walk 10 feet: 4 Walk 50 feet with two turns: 4 Walk 150 feet: 4 Walking 10ft on uneven surface: 4 1 step (curb): 4 4 steps: 4 PT Intermediate Goals Chief Maintenance Supervisor Goals PT Chief Maintenance Supervisor Goals Time Frame: May 25, 2019 Roll Left & Right (QC): 6 Sit to Lying (QC): 6 Lying-Sitting on Side/Bed(QC): 6 Sit to Stand (QC): 6 Chair/Scw-jx-Nadme Xfer(QC): 6 Toilet Transfer (QC): 6 Car Transfer (QC): 6 Does the Patient Walk: Yes Walk 10 feet (QC): 6 Walk 50ft with 2 Turns (QC): 6 Walk 150 ft (QC): 6 Walking 10ft on Uneven Surface: 6 1 Step (curb) (QC): 6 4 Steps (QC): 6 12 Steps (QC): 6 Picking up an Object (QC): 4 Does the Pt use WC or Scooter?: No Type: N/A Type: N/A PT Plan Problem List Problem List: Activity Tolerance, Functional Strength, Safety, Balance, Gait, Transfer, Bed Mobility Treatment/Plan Treatment Plan: Continue Plan of Care Treatment Plan: Bed Mobility, Education, Functional Activity Lavern, Functional Strength, Group Therapy, Gait, Safety, Therapeutic Exercise, Transfers Treatment Duration: May 25, 2019 Frequency: Modified Program (IRF) Estimated Hrs Per Day: 1.5 hours per day Patient and/or Family Agrees t: Yes Safety Risks/Education Patient Education: Transfer Techniques, Safety Issues Teaching Recipient: Patient Teaching Methods: Demonstration, Discussion Response to Teaching: Reinforcement Needed Discharge Recommendations Therapy Discharge Recommendati: Post Acute PT Time/GCodes Time In: 1410 Time Out: 1420 (2077-2090 (co treat with OT)) Total Billed Treatment Time: 65 Total Billed Treatment visit EVM 10 visit FA 55 ELIZA PRADHAN PT May 04, 2019 15:40 POS
[2019-05-04] MEDS ORDERED: guaiFENesin/DM (ROBITUSSIN DM) 10 ML UDC PEG PRN (15:45)
[2019-05-04] MEDS ORDERED: LIDOCAINE PATCH REMOVAL TP PRN (15:45)
[2019-05-04] MEDS ORDERED: MILK OF MAGNESIA 400 MG/5 ML 30 ML UDC PEG PRN (15:45)
[2019-05-04] MEDS ORDERED: LIDOCAINE 4% (SALONPAS) PATCH TOP PRN (15:45)
--- NOTE | 2019-05-04 16:03 | Occupational Therapy Eval ---
OT Evaluation-General/PLF Medical Diagnosis Admission Date May 04, 2019 at 12:44 Medical Diagnosis: Gullain-barre Syndrome Onset Date: May 04, 2019 Therapy Diagnosis Therapy Diagnosis: Weakness Precautions Precautions/Isolations: Aspiration, Fall Prevention, Standard Precautions, Pressure Ulcer Weight Bear Status Weight Bearing Restriction: Weight Bearing/Tolerated Referral Physician: Tyron Referral Reason: Activity Tolerance, Self Care, Evaluation/Treatment, Strengthening/ROM Medical History Additional Medical History ARF, Severe sepsis, encephalopathy, pneumonia Reviewed History: Yes Social History Home: Single Level Current Living Status: Children (his son lives with him) Entry Into Home: Stairs Without Railing Steps Into Home: 3 ADL-Prior Level of Function SCALE: Activities may be completed with or without assistive devices. 2-Upudykltnw-djuhrlw completes the activity by him/herself with no assistance from a helper. 5-Set-up or Clean-up Assistance-helper sets up or cleans up; patient completes activity. [place] assists only prior to or following the activity. 4-Supervision or Touching Assistance-helper provides verbal cues and/or touching/steadying and/or contact guard assistance as patient completes activity. Assistance may be provided throughout the activity or intermittently. 3-Partial/Moderate Assistance-helper does LESS THAN HALF the effort. [place] lifts, holds or supports trunk or limbs, but provides less than half the effort. 2-Substantial/Maximal Assistance-helper does MORE THAN HALF the effort. [place] lifts or holds trunk or limbs and provides more than half the effort. 0-Ehaqjzblr-nhtgul does ALL the effort. Patient does none of the effort to complete the activity. Or, the assistance of 2 or more helpers is required for the patient to complete the activity. If activity was not attempted, code reason: 7-Patient Refused. 9-Not Applicable-not attempted and the patient did not perform the activity before the current illness, exacerbation or injury. 10-Not Attempted due to Environmental Limitations-(lack of equipment, weather restraints, etc.). 88-Not Attempted due to Medical Conditions or Safety Concerns. ADL PLOF Comments Pt. was independent with daily tasks. 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 reports 8/10 pain in feet. Nursing aware. Appearance Pt. in bed when therapy enters room. Mental Status/Objective Patient Orientation: Person, Place, Time, Situation Current Glasses/Contacts: Yes Hand Dominance: Right Upper Extremity ROM Pt. is able to flex bilateral shoulders to approximately 90 degrees. States that previous to this illness, he was able to fully raise arms. Upper Extremity Coordination Impaired. Pt. is able to write his name with increased effort. States that it is "better than it was," but is still somewhat difficult. Upper Extremity Sensation No reported impairment. Upper Extremity Strength Right shoulder- 2/5 Left shoulder- 2+/5 Right elbow/bicep- 3/5 left elbow/bicep-3+/5 ADL-Treatment Eating (QC): 88 (Pt. has a PEG tube and is currently not allowed food orally.) Oral Hygiene (QC): 7 Shower/Bathe Self (QC): 88 Upper Body Dressing (QC): 4 (SBA) Lower Body Dressing (QC): 7 (Pt. already dressed when he came to rehab.) On/Off Footwear (QC): 2 (Max assist to doff/don slipper socks.) Toileting Hygiene (QC): 7 Toilet Transfer (QC): 7 Other Treatments Pt. agrees to work with OT/PT. Completed co-treatment due to pt's fatigue level from transport to . OT focused on ADL training, equipment training, and UE assessment while PT focused on balance, transfers, and mobility. Pt. educated on AE for increased independence with LE dressing. Pt. demonstrated ability to doff/don slipper socks with AE with min assist. Pt. required min x 2 for sit- stand and ambulation. Bilateral LE somewhat "wobbly." Noted increased weakness in UE, and in overall endurance. Pt. eager to be independent and currently has PEG tube for feeding. All needs met back in room after full assessment. Pt. in bed. Education OT Patient Education: Correct positioning, Modified ADL techniques, Progress toward Goal/Update tx plan, Purpose of tx/functional activities, Reviewed precautions, Rehab process, Transfer techniques, Use of adapted equipment Teaching Recipient: Patient Teaching Methods: Demonstration, Discussion Response to Teaching: Verbalize Understanding, Return Demonstration OT Hospice Care Transitions Coordinator Goals Shelter Goals Time Frame: May 18, 2019 Eating (QC): 6 Oral Hygiene (QC): 6 Toileting Hygiene (QC): 6 Shower/Bathe Self (QC): 6 Upper Body Dressing (QC): 6 Lower Body Dressing (QC): 6 On/Off Footwear (QC): 6 Additional Goals: 1-Demonstrate ADL Tasks, 2-Verbalize Understanding, 3- ImproveStrength/Lavern 1=Demonstrate adherence to instructed precautions during ADL tasks. 2=Patient will verbalize/demonstrate understanding of assistive devices/modifications for ADL. 3=Patient will improve strength/tolerance for activity to enable patient to perform ADL's. OT Education/Plan Problem List/Assessment Assessment: Decreased Activ Tolerance, Decreased UE Strength, Dependent Transfers, Impaired Coordination, Impaired Funct Balance, Impaired I ADL's, Impaired Self-Care Skills, Restricted Funct UE ROM Discharge Recommendations Plan/Recommendations: Continue POC Therapy Discharge Recommendati: Post Acute OT Equpiment Recommendations-D/C: Hip Kit Treatment Plan/Plan of Care Treatment,Training & Education: Yes Patient would benefit from OT for education, treatment and training to promote independence in ADL's, mobility, safety and/or upper extremity function for ADL's. Plan of Care: ADL Retraining, Functional Mobility, Group Exercise/Act as Ind, UE Funct Exercise/Act Treatment Duration: May 18, 2019 Frequency: At least 5 of 7 days/Wk (IRF) Estimated Hrs Per Day: 1.5 hours per day Agreement: Yes Rehab Potential: Good Time/GCodes Start Time: 14:00 Stop Time: 15:15 Total Time Billed (hr/min): 65 Billed Treatment Time 5759-0044 1, EVM x 10minutes [id number] PT eval, no charge [id number] ADL x 35minutes, FA x 20minutes- Co-treatment. Please see above note for designated roles. LISBET BECKWITH OT May 04, 2019 16:03 POS
[2019-05-04 16:29] VITALS: BP 136/83
[2019-05-04 16:48] VITALS: BP 136/83
--- NOTE | 2019-05-04 17:48 | Wound Care Assessment ---
Wound Care Assessment Date Seen by Provider: May 04, 2019 Time Seen by Provider: 17:30 Chief Complaint Sacral pressure injury. HPI The patient is an unfortunate 53 year old male with paraplegia, 3 weeks post onset of Guillian-Hen[place] syndrome, and a Stage 1 pressure injury to the sacral area. Off-loading, repositioning, and skin care discussed. Prevention measures ordered. Past Medical History: Denies Diabetes Type II, Denies Heart Disease History of carpal tunnel operation. Smoking Status: Former Smoker Recreational Drug Use: No Alcohol Use: Regular Use Review of Systems Pulmonary: No Dyspnea Cardiovascular: No: Chest Pain Exam Vital Signs Date Time Temp Pulse Resp B/P (MAP) Pulse Ox O2 Delivery O2 Flow Rate FiO2 05/04/19 16:48 37.6 86 16 136/83 Room Air 05/04/19 16:29 93 Capillary Refill : Less Than 3 Seconds General Appearance: no apparent distress, thin Respiratory: no respiratory distress Back: other (Non-blancable erythema of sacral area, 8 x 8 cm.) Assessment/Plan/Dx 1. Pressure injury, Sacrum, Stage 1, present on admission. 2. Guillain-[place] syndrome. Plan: Frequent repositioning, Allevyn to sacrum, Primo boots to heels. FLORES LOPEZ MD May 04, 2019 17:48 POS
[2019-05-04 18:00] VITALS: BP 136/83
--- NOTE | 2019-05-04 19:10 | NUR ---
bedside report received from WINNIE VALENTINE, assume care of pt
[2019-05-04] MEDS: MELATONIN 3 MG TABLET PEG SCH (20:43)
[2019-05-04] MEDS: AMITRIPTYLINE 25 MG (ELAVIL) TAB PO SCH (20:44)
--- NOTE | 2019-05-04 20:44 | NUR ---
pt refused miralax & senoskot, c/o pain to salo feet, level 8/10 on numeric scale, lortab 5 1 tab crushed per GT given
[2019-05-04] MEDS: SENNA W/DOCUSATE (SENOKOT S) TABLET PO SCH (20:52)
[2019-05-04] MEDS: POLYETHYLENE GLYCOL 17 GM (MIRALAX) PACK PO SCH (20:52)
[2019-05-04] MEDS ORDERED: NON-FORMULARY MEDICATION 1 EA EA (Melatonin 5 MG) PEG SCH (21:00)
--- NOTE | 2019-05-04 21:30 | NUR ---
resting quietly in bed, pain level 0/10 on flacc scale
--- NOTE | 2019-05-04 21:36 | PM&R Post Admission Assessment ---
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 He has plenty of support from family and will be in need of aggressive therapies to return to independent living. Hospital Course: 04/11 One week history of URI, cough, SOB, diarrhea 04/12 Numbness and tingling in hands 04/14 Unable to walk, paralyzed, brought by brother into to [facility] ER. Self reported numbness elbow and knee high with complete paresthesia in hands and feet. Transferred to neurology and started on IVIG (5 doses in total) Neurologic Findings: Motor strength: 3/5 elbow extension, hand flexion, knee flexion 4/5 finger flexion, knee extension Sensation: diminished to light touch elbow and knee b/l , vibration diminished in MTP, normal in patella Proprioception impaired in hands Romberg sign: untested Cold temp: diminished in elbows and knees 04/19 - developed hypoxia, transferred to NEICU and intubated for suspected PNA. Treated for shock, respiratory acidosis, possible PE w/ TPA, possible PNA with vanc/zosyn, acute respiratory failure 04/20 - developed stage II pressure ulcers on b/l glutei 04/21 Weaning from vent started 04/23 - tonic/clonic seizure lasting one minute overnight, started on Keppra - possible alcohol withdrawal 04/24 - evaluated for ileus w/ gastrografin challenge to r/o SBO 04/26 - extubated 04/28 - evaluated to be stable enough for transfer 04/29 - Evaluated by neurologist again Motor strength: 3/5 hand flexion 4/5 wrist extension, flexion, foot flexion, knee flexion, knee extension, toe flexion, toe extension 5/5 strength in shoulder abduction, elbow flexion, elbow extension diffusely arreflexic b/l 05/02 - PEG tube placed 05/04/2019 Motor - Transferred to [facility] IRf Neuro Test CN 2-12 intact b/l 5/5 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, elbow flexion, extension, shoulder abduction, adduction, hip flexion, extension, knee flexion, extension, hip ab/adduction 3/5 in dorsiflexion and plantarflexion Arreflexic b/l for triceps, brachioradialis, patellar and ankle Sensation intact b/l except light touch in hands/feet below wrist/ankle he interprets as pins and needles (pain disappears with gabapentin admin) pulses 2/4, posterior tibial and radial Denies bowel/bladder incontinence difficulty with fpmf-pa-hmee, may have been limited by decreased plantar/d orsiflexion in ankles Short shuffling gait with heavy assistance Suspected etiology: Recent URI suspected viral infection. Relative risk for GBS increases 7% after viral infection. Less likely etiologies: CMV, EBV, HIV, Campylobacter, Mycoplasma pneumoniae (his PNA occurred after onset of GBS symptoms) Barriers Poor family support but son does live at home Dysphagia continues PEG tube in place 3-5 stairs leading up to house Pt able to walk with assistance but is very unsteady has no medical equipment at home GLORIA MACHUCA,MED STUDENT Past Azeoyuq-Ipvxud-Syyuop Hx Past Med/Social Hx: Reviewed Nursing Past Med/Soc Hx, Reviewed and Corrections made Patient Social History Marrital Status: single Employed/Student: employed ([employer] 15 years) Alcohol Use: Regular Use Number of Drinks Today: 0 Alcohol Beverage of Choice: Whiskey Recreational Drug Use: No Smoking Status: Former Smoker Former Smoker, Quit: Apr 14, 2019 Type Used: Cigarettes Physical Abuse Screen: No Sexual Abuse: No Recent Foreign Travel: No Contact w/other who traveled: No Recent Hopitalizations: Yes ([facility] transfer) Recent Infectious Disease Expo: No Immunizations Up To Date Pediatric: Yes Seasonal Allergies Seasonal Allergies: No Past Medical History Surgeries: Orthopedic Currently Using CPAP: No Currently Using BIPAP: No Are Your Blood Sugars Over 250: No History of Blood Disorders: No Adverse Reaction to Blood Otero: No Family History Arthritis 19 FATHER 19 MOTHER Cataracts 19 MOTHER Colon cancer 19 FATHER Completed stroke 19 MOTHER Diabetes mellitus 19 FATHER 19 MOTHER Myocardial infarction G8 BROTHER Heart Disease, Cancer, Hypertension, Stroke Prior Level of Function Bed Mobility: 6 Transfers: 6 Gait: 6 Stairs: 6 Wheelchair Mobility: 9 Indoor Mobility (Ambulation): Independent Stairs: Independent Self Care: Independent Functional Cognition: Independent 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 [employer] Self: Yes Current Level of Fuctioning Roll Left to Right: 4 Sit to Lyin Lying to Sitting/Side of Bed: 3 Sit to Stand: 3 (min assist to come to a stand and cues for hand placement for safety) Chair/Vyg-fd-Xoabc Xfer: 4 Car Transfer: 3 Does the Patient Walk: Yes Mode of Locomotion: Walk Anticipated Mode of Locomotion: Walk Walk 10 feet: 4 Walk 50 ft with 2 Turns: 3 (min assist for balance and safety) Walk 150 ft: 3 Walking 10ft on uneven surface: 3 Gait Assistive Device: FWW Does the Pt Use a Wheelchair: No Wheel 50 ft with 2 turns: 9 Wheel 150 ft: 9 Type of Wheelchair: Manual #of Steps: 4 1 Step (curb): 3 4 Steps: 3 12 Steps: 88 Picking up an Object: 88 Eatin (Pt. has a PEG tube and is currently not allowed food orally.) Oral Hygiene: 7 Shower/Bathe Self: 88 Upper Body Dressin (SBA) Lower Body Dressin (Pt. already dressed when he came to rehab.) On/Off Footwear: 2 (Max assist to doff/don slipper socks.) Toileting Hygiene: 7 Toilet Transfer: 7 PM&R Allergy/Meds/Data Review Allergies Coded Allergies: No Known Drug Allergies (Unverified , 09/23/10) Home Medications Scheduled PRN Guaifenesin/Dextromethorphan (Guaifenesin Dm Syrup), 10 ML PO Q4H PRN for COUGH, (Reported) Current Medications Current Medications Reviewed Review of Systems Constitutional: see HPI, malaise, weakness EENTM: other (dysphagia) Respiratory: dyspnea on exertion Cardiovascular: no symptoms reported Gastrointestinal: no symptoms reported Genitourinary: no symptoms reported Musculoskeletal: no symptoms reported Skin: no symptoms reported Psychiatric/Neurological: Anxiety, Depressed, Tingling, Tremors, Weakness All Other Systems Reviewed Negative Unless Noted: Yes Physical Exam Physical Exam Vital Signs Vital Signs - First Documented 05/04/19 12:30 Temp 37.3 Pulse 92 Resp 19 B/P (MAP) 147/68 (94) Pulse Ox 92 O2 Delivery Room Air Capillary Refill : Less Than 3 Seconds Height, Weight, BMI Height: '" Weight: lbs. oz. kg; 23.30 BMI Method: General Appearance: No Apparent Distress, WD/WN, Chronically ill, Thin Eyes: Bilateral Eye Normal Inspection, Bilateral Eye PERRL HEENT: PERRL/EOMI, Normal ENT Inspection, Pharynx Normal Neck: Full Range of Motion, Normal Inspection, Non Tender, Supple, Carotid Bruit Respiratory: Chest Non Tender, Lungs Clear, Normal Breath Sounds, No Accessory Muscle Use, No Respiratory Distress Cardiovascular: Regular Rate, Rhythm, No Edema, No Gallop, No JVD, No Murmur, Normal Peripheral Pulses Gastrointestinal: Normal Bowel Sounds, No Organomegaly, No Pulsatile Mass, Non Tender, Soft, Other (PEG tube in place) Back: Normal Inspection, No CVA Tenderness, No Vertebral Tenderness Extremity: Normal Capillary Refill, Normal Inspection, Normal Range of Motion, Non Tender, No Calf Tenderness, No Pedal Edema Neurologic/Psychiatric: Alert, Oriented x3, Normal 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/Affect, 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 Norm as Tested, Motor Weakness (lower legs 3/5), Sensory Deficit Skin: Normal Color, Warm/Dry Lymphatic: No Adenopathy PM&R Medical Assessment & Plan REHAB/MEDICAL ASSESSMENT AND PLAN: REHAB IMPAIRMENT GROUP: Guillain-[place] Syndrome ETIOLOGIC DIAGNOSIS: Guillain-[place] Syndrome The comorbidities that impact the patients function and/or functional outcome by: Recent PNA and respiratory failure, smoking history, dysphagia requiring PEG tube feedings, decubitus ulcers REHAB PLAN: The patient is being admitted to our comprehensive inpatient rehabilitation facility and can tolerate the intensity of service consisting of at least: 180 minutes of therapy a day, 5 out of 7 days a week Rehab treatment will consist of: PT will help regain strength to help ambulation, OT will help regain independence of ADL's The patient/family has a good understanding of our discharge process and will benefit from an interdisciplinary inpatient rehabilitation program. The patient has potential to make improvement and is in need of at least two of the following multidisciplinary therapies including but not limited to physical, occupational, speech, and prosthetics and orthotics. Additionally the patient will need services from respiratory, nutritional services, wound care, psychology, etc. (Customize this to each patient). Given the patients complex condition and risk of further medical complications, rehabilitation services cannot be safely or effectively provided at a lower level of care such as a senior living facility. BARRIERS TO DISCHARGE: Only son at home ESTIMATED LOS: 14 days DISPOSITION: Home RELEVANT CHANGES SINCE PREADMISSION SCREENING: I have compared the patients medical and functional status at the time of the preadmission screening and there are: no changes PROGNOSIS: Good REHABILITATION GOALS: 1. PT/OT will help regain function following catastrophic medical illness in order to return to independent living All the above goals were reviewed with the patient and he/she is in agreement. By signing this document, I acknowledge that I have personally performed a full physical examination on this patient within 24 hours of admission to this inpatient rehabilitation facility and have determined the patient to be able to tolerate the above course of treatment at an intensive level for a reasonable period of time. I will be completing a detailed individualized Plan of Care for this patient by day #4 of the patients stay based upon the Preadmission Screen, the Post-Admission Evaluation, and the therapy evaluations. 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
--- NOTE | 2019-05-04 21:58 | Individualized Plan of Care ---
Individualized Plan of Care Rehab Nursing IPOC Order Admission Date May 04, 2019 at 12:44 Current Orders Orders Admission Order(Inpt,Obs,Sdc) (05/04/19 10:28) Vital Signs: Per Unit Policy ( 08,16,00 (05/04/19 10:28) Kyle Carter (05/04/19 10:28) Sequential Compression Device Q4H (05/04/19 10:28) Business Support Manager-Inpt Rehab Con (05/04/19 10:28) Rehab Nursing Orders-Ipoc (05/04/19 10:28) Physical Therapy Rehab Orders (05/04/19 10:28) Occupational Therapy Rehab Ord (05/04/19 10:28) Speech Therapy Rehab Orders (05/04/19 10:28) Cbc With Automated Diff (05/05/19 06:00) Comprehensive Metabolic Panel (05/05/19 06:00) Intake & Output 06,, (05/04/19 10:28) Precautions (Aru) (05/04/19 10:28) Weekly Weight WEEK (05/04/19 10:28) Rehab-Intensity Of Therapy (05/04/19 10:28) Initiate Admission Nursing Pro .admission (05/04/19 10:28) Acetaminophen Tablet (Tylenol Tablet) (05/04/19 10:30) Alprazolam Tablet (Xanax Tablet) (05/04/19 10:30) Calcium Carbonate Chew Tablet (Antacid C (05/04/19 10:30) Diphenhydramine Tablet (Benadryl Tablet) (05/04/19 10:30) Docusate Sodium Capsule (Colace Capsule) (05/04/19 10:30) Bisacodyl Suppository (Dulcolax Supposit (05/04/19 10:30) Lactulose Oral Solution (Enulose Oral So (05/04/19 10:30) Na Phos/Na Biphos Enema (Fleet Enema Abner (05/04/19 10:30) Guaifenesin/Codeine Syrup (Robitussin Ac (05/04/19 10:30) Hydrocodone/Apap 5/325 Tablet (Lortab 5 (05/04/19 10:30) Ibuprofen Tablet (Motrin Tablet) (05/04/19 10:30) Loperamide Tablet (Imodium Tablet) (05/04/19 10:30) Enoxaparin Injection (Lovenox Injection) (05/04/19 10:30) Melatonin Tablet (Melatonin Tablet) (05/04/19 10:30) Polyethylene Glycol Powder Pkt (Miralax (05/04/19 21:00) Ondansetron Oral Dissolve Tab (Zofran (05/04/19 10:30) Senna S Tablet (Senokot S Tablet) (05/04/19 21:00) Tramadol Tablet (Ultram Tablet) (05/04/19 10:30) Initiate Admission Nursing Pro .admission (05/04/19 10:28) Consult Wound Care Physician (05/04/19 10:29) Admission Arrival Bed Request (05/04/19 12:44) Patient Visit (05/04/19 ) Speech Sound Lang Comp (05/04/19 ) Nothing By Mouth (05/04/19 Dinner) Amitriptyline Tablet (Elavil Tablet) (05/04/19 21:00) Folic Acid Tablet (Folic Acid Tablet) (05/05/19 09:00) Oxycodone 5 Mg/5ml Oral Soln (Roxicodone (05/04/19 15:00) (Nf) Calcium Carbonate (Tums) (05/04/19 15:00) (Nf) Cyanocobalamin (Vitamin B-12) (Patricia (05/05/19 09:00) (Nf) Dextran 70/Hypromellose (Natural Ba (05/04/19 15:00) (Nf) Diclofenac Sodium (Voltaren) (05/04/19 15:00) (Nf) Emu Oil (05/04/19 15:00) (Nf) Esomeprazole Magnesium (Nexium) (05/05/19 09:00) (Nf) Gabapentin (05/04/19 15:00) (Nf) Guaifenesin/Dextromethorphan (Guaif (05/04/19 15:00) (Nf) Ibuprofen (Children's Ibuprofen) (05/04/19 15:00) (Nf) Lidocaine (Lidocaine 5% Patch) (05/04/19 15:00) (Nf) Magnesium Hydroxide (Milk Of Magnes (05/04/19 15:00) (Nf) Melatonin (05/04/19 21:00) (Nf) Multivitamin W/Iron, Minerals (Lysi (05/05/19 09:00) (Nf) Ondansetron Hcl/Pf (Ondansetron 4 M (05/04/19 15:00) (Nf) Thiamine Mononitrate (Vitamin B-1) (05/05/19 09:00) Patient Visit (05/04/19 ) Pt Eval Moderate Complexity (05/04/19 ) Functional Activities, Ea 15 (05/04/19 ) Ondansetron Injection (Zofran Injectio (05/04/19 15:30) Multivitamins Liquid (Geritol Liquid) (05/05/19 07:00) Ibuprofen Suspension (Motrin Suspension) (05/04/19 15:30) Calcium Carbonate Chew Tablet (Antacid C (05/04/19 15:30) Cyanocobalamin Tablet (Vitamin B-12 Tabl (05/05/19 07:00) Carboxymethylcell Ophth Soln (Refresh Pl (05/04/19 15:30) Water, Sterile For Irrigation (Sterile W (05/05/19 07:00) Melatonin Tablet (Melatonin Tablet) (05/04/19 21:00) Guaifenesin/Dm Syrup (Robitussin Dm Syru (05/04/19 15:45) Diclofenac 1% Gel (Voltaren 1% Gel) (05/04/19 15:45) Magnesium Hydroxide Oral Susp (Mom Oral (05/04/19 15:45) Thiamine Tablet (Vitamin B-1 Tablet) (05/05/19 07:00) Gabapentin Capsule/Tablet (Neurontin Cap (05/04/19 15:45) Lidocaine 4% Patch (Salonpas 4% Patch) (05/04/19 15:45) Patch Removal (Patch Removal) (05/04/19 15:45) Tube Feeding (Diet) (05/04/19 16:03) Nothing By Mouth (05/05/19 Breakfast) Dressing Order (Intervention) Q48H (05/04/19 17:51) Rehab Nursing Orders: Ongoing Assess. of Cognitive Status, Ongoing Assess. of Function Status, Bladder Management, Bladder Training, Bowel Management, Disease Management & Educaiton, DVT Prophylaxis, Fall Prevention, Fluid/Electrolyte/Nutrition Mgmt, Infection Prevention, Medication Management & Education, Management of Risks & Complications, Management of Skin Intergrity, Nutrition Management, Pain Management, Patient/Family Support, Safety Management, Swallow Precautions Intensity of Therapy to be met Patient to be seen: Min.3h per day/5 of 7d PT IPOC Problem List: Activity Tolerance, Functional Strength, Safety, Balance, Gait, Transfer, Bed Mobility Treatment Plan: Continue Plan of Care Bed Mobility, Education, Functional Activity Lavern, Functional Strength, Group Therapy, Gait, Safety, Therapeutic Exercise, Transfers Treatment Duration: May 25, 2019 Frequency: Modified Program (IRF) Estimated Hrs Per Day: 1.5 hours per day OT IPOC Problems: Decreased Activ Tolerance, Decreased UE Strength, Dependent Transfers, Impaired Coordination, Impaired Funct Balance, Impaired I ADL's, Impaired Self-Care Skills, Restricted Funct UE ROM OT Treatment, Training and Edu: Yes Plan of Care: ADL Retraining, Functional Mobility, Group Exercise/Act as Ind, UE Funct Exercise/Act Treatment Duration: May 18, 2019 Frequency: At least 5 of 7 days/Wk (IRF) Estimated Hrs Per Day: 1.[address] IPOC Speech Therapy Treatment Plan: Discontinue ST Treatment Duration: May 04, 2019 Frequency: 1 time per week Estimated Hrs Per Day: .25 hour per day Business Support Manager/Case Mgmt Business Support Manager/Case Managemen: Discharge Planning Dietitian/Coal Mill Operator Dietitian/Coal Mill Operator to monitor nutritional status and make changes and/or recommendations as needed and work with speech pathology on dietary upgrades as the occur. Physician IPOC Medical Issues being managed closely and that require the 24 hour availability of a physician: Patient with Guillian-[place] with aspiration risk of saliva requiring PEG tube an d severe neurological deficits will require close observation with physician Medical Issues: Bowel/Bladder Function, DVT Prophylaxis, Falls Precautions, Fluid/Electrolyte/Nutrition Balance, Infection Protection, Pain Management, Swallowing Precautions, Wound Care Brief Synthesis of Preadmission Screen, Post-Admission Evaluation, and Therapy Evaluations: PT will focus on regaining muscular strength to compensate for neurological deficit and ambulate with assistive devices OT we'll focus on improving independent ADL function in order to return to living independently Speech therapy will work on swallow exercises Medical Prognosis: Good Anticipated Length of Stay: 14 days RIANA STORY DO May 04, 2019 21:58 POS
--- NOTE | 2019-05-05 | NUR ---
gastric residual 7ml tube feeding 1.5 jevity rate increased to 30ml/hr
[2019-05-05] MEDS: HYDROcodone/APAP 5 MG/325 MG (LORTAB) TAB PO PRN ×4 (01:55→17:38)
--- NOTE | 2019-05-05 01:55 | NUR ---
c/o lower leg pain level 8/10 on numeric scale, lortab 5 1 tab crushed per g-tube
--- NOTE | 2019-05-05 02:30 | NUR ---
resting quietly in bed, pain level 0/10 on flacc scale
[2019-05-05 05:55] VITALS: BP 124/71
--- NOTE | 2019-05-05 06:07 | NUR ---
gastric residual 9ml tube feeding 1.5 jevity increased to 40ml/hr, c/o pain to lower legs pain level 6/10 on numeric scale, Lortab 5 1 tab given
[2019-05-05] MEDS: CYANOCOBALAMIN 1,000 MCG (VITAMIN B-12) TABLET PEG SCH (06:08)
[2019-05-05] MEDS: THIAMINE 100 MG (VITAMIN B-1) TAB PEG SCH (06:08)
[2019-05-05] MEDS: PANTOPRAZOLE 2 MG/ML LIQUID 200 ML (PROTONIX) PEG SCH ×3 (06:10)
[2019-05-05 06:11] LABS: BASOPHILS % (AUTO) 1 % (0-10); EOSINOPHILS # (AUTO) 0.4 10^3/uL (0.0-0.3); EOSINOPHILS % (AUTO) 5 % (0-10); HEMATOCRIT 41 % (40-54); HEMOGLOBIN 13.4 G/DL (13.3-17.7); LYMPHOCYTES # (AUTO) 1.4 X 10^3 (1.0-4.0); LYMPHOCYTES % (AUTO) 20 % (12-44); MEAN CORPUSCULAR HEMOGLOBIN 34 PG (25-34); MEAN CORPUSCULAR HGB CONC 33 G/DL (32-36); MEAN CORPUSCULAR VOLUME 105 FL (80-99); MEAN PLATELET VOLUME 12.8 FL (7.4-10.4); MONOCYTES # (AUTO) 0.6 X 10^3 (0.0-1.0); MONOCYTES % (AUTO) 9 % (0-12); NEUTROPHILS # (AUTO) 4.6 X 10^3 (1.8-7.8); NEUTROPHILS % (AUTO) 65 % (42-75); PLATELET COUNT 183 10^3/uL (130-400); RED CELL DISTRIBUTION WIDTH 12.5 % (10.0-14.5); WHITE BLOOD COUNT 7.1 10^3/uL (4.3-11.0)
[2019-05-05 06:39] LABS: ALANINE AMINOTRANSFERASE 39 U/L (0-55); ALBUMIN 3.8 GM/DL (3.2-4.5); ALKALINE PHOSPHATASE 63 U/L (40-136); BILIRUBIN,TOTAL 0.6 MG/DL (0.1-1.0); BUN/CREATININE RATIO 23; CALCIUM 9.9 MG/DL (8.5-10.1); CARBON DIOXIDE 22 MMOL/L (21-32); CHLORIDE 102 MMOL/L (98-107); CREATININE SERUM 0.77 MG/DL (0.60-1.30); GFR ESTIMATED > 60; GLUCOSE 106 MG/DL (70-105); POTASSIUM 4.5 MMOL/L (3.6-5.0); SODIUM 136 MMOL/L (135-145); TOTAL PROTEIN 8.1 GM/DL (6.4-8.2)
--- NOTE | 2019-05-05 06:57 | NUR ---
rates pain level 3/10 on numeric scale
--- NOTE | 2019-05-05 07:04 | NUR ---
bedside report given to KALE VALENTINE
[2019-05-05] MEDS ORDERED: NON-FORMULARY MEDICATION 1 EA EA (Esomeprazole Magnesium (Nexium) 40 MG) PEG SCH (09:00)
[2019-05-05] MEDS ORDERED: THIAMINE MONONITRATE 100 MG PEG SCH (09:00)
[2019-05-05] MEDS ORDERED: IRON MINERALS PEG SCH (09:00)
[2019-05-05] MEDS ORDERED: MULTIVITAMIN PEG SCH (09:00)
[2019-05-05] MEDS ORDERED: NON-FORMULARY MEDICATION 1 EA EA (Cyanocobalamin (Vitamin B-12) (Vitamin B-12) 1,000 MCG) PEG SCH (09:00)
--- NOTE | 2019-05-05 09:15 | Occupational Ther Daily Note ---
OT Current Status-Daily Note Subjective Pt alert, sitting EOB. Pt agrees to therapy. Pt states that his feet were tingling and hurting, nrsg gave pain meds earlier. Mental Status/Objective Patient Orientation: Person, Place, Time, Situation Attachments: PEG Tube ADL-Treatment Pt agrees to shower. Sitting EOB, pt able to don socks over toes, assist to get over heels then pt able to pull up lower legs. Pt ambulated with CGA to bathroom and transferred to shower using FWW. Assist to doff socks, pt doffed underwear and hospital gown with SBA. Pt completed bathing using grabbars, hand held shower and shower bench with SBA for safety. After set up, pt able to complete upper body dressing by self then was able to don pants over feet, up legs and SBA in standing to hike pants over hips. Assist to don socks. Pt sat at sink to complete oral care. Pt decline to use bathroom. Therapy Code Descriptions/Definitions Functional [place] Measure: 0=Not Assessed/NA 4=Minimal Assistance 1=Total Assistance 5=Supervision or Setup 2=Maximal Assistance 6=Modified [place] 3=Moderate Assistance 7=Complete IndependenceSCALE: Activities may be completed with or without assistive devices. 4-Lwfudcukly-dfkxrdr completes the activity by him/herself with no assistance from a helper. 5-Set-up or Clean-up Assistance-helper sets up or cleans up; patient completes activity. [place] assists only prior to or following the activity. 4-Supervision or Touching Assistance-helper provides verbal cues and/or touching/steadying and/or contact guard assistance as patient completes activity. Assistance may be provided throughout the activity or intermittently. 3-Partial/Moderate Assistance-helper does LESS THAN HALF the effort. [place] lifts, holds or supports trunk or limbs, but provides less than half the effort. 2-Substantial/Maximal Assistance-helper does MORE THAN HALF the effort. [place] lifts or holds trunk or limbs and provides more than half the effort. 1-Apxvhyqzc-plqtkk does ALL the effort. Patient does none of the effort to complete the activity. Or, the assistance of 2 or more helpers is required for the patient to complete the activity. If activity was not attempted, code reason: 7-Patient Refused. 9-Not Applicable-not attempted and the patient did not perform the activity before the current illness, exacerbation or injury. 10-Not Attempted due to Environmental Limitations-(lack of equipment, weather restraints, etc.). 88-Not Attempted due to Medical Conditions or Safety Concerns. Eating (QC): 88 Oral Hygiene (QC): 6 Bathing Location: L Arm, R Arm, L Upper Leg, R Upper Leg, L Lower Leg (including foot), R Lower Leg (including foot), Chest, Abdomen, Buttocks, Perineal Area Shower/Bathe Self (QC): 4 Upper Body Dressing (QC): 5 Lower Body Dressing (QC): 4 (Footwear (QC) 2) Toileting Hygiene (QC): 7 Toilet Transfer (QC): 7 Pt requires verbal reminders for hand placement during transfers. Other Treatment Pt ambulated to therapy gym using FWW, CGA. Pt completed arm bike for 15 min at 20 mosquera resistance with fast rotation to increase strength and activity tolerance. Pt then completed resistive clothes pins to increase pinch/master glazier strength for daily functional tasks. Pt requested w/c so he could move around unit during down times from therapy session. Pt ambulated back to room using FWW. After session, pt sitting in w/c with call light/phone in reach. All needs met in room. OT [facility] Goals [facility] Goals Time Frame: May 18, 2019 Eating (QC): 6 Oral Hygiene (QC): 6 Toileting Hygiene (QC): 6 Shower/Bathe Self (QC): 6 Upper Body Dressing (QC): 6 Lower Body Dressing (QC): 6 On/Off Footwear (QC): 6 Additional Goals: 1-Demonstrate ADL Tasks, 2-Verbalize Understanding, 3- ImproveStrength/Lavern 1=Demonstrate adherence to instructed precautions during ADL tasks. 2=Patient will verbalize/demonstrate understanding of assistive devices/modifications for ADL. 3=Patient will improve strength/tolerance for activity to enable patient to perform ADL's. OT Education/Plan Problem List/Assessment Assessment: Decreased Activ Tolerance, Decreased Safety Aware, Decreased UE Strength, Impaired Coordination, Impaired Funct Balance, Impaired Self-Care Skills Discharge Recommendations Plan/Recommendations: Continue POC Treatment Plan/Plan of Care Patient would benefit from OT for education, treatment and training to promote independence in ADL's, mobility, safety and/or upper extremity function for ADL's. Plan of Care: ADL Retraining, Functional Mobility, Group Exercise/Act as Ind, UE Funct Exercise/Act Treatment Duration: May 18, 2019 Frequency: At least 5 of 7 days/Wk (IRF) Estimated Hrs Per Day: 1.5 hours per day Agreement: Yes Rehab Potential: Good Time/GCodes Start Time: 07:00 Stop Time: 08:30 Total Time Billed (hr/min): 90 Billed Treatment Time 1 visit-ADL 4 (60 min) EX 2 (30 min) ELIZA AHN May 05, 2019 09:15 POS
[2019-05-05] MEDS: SENNA W/DOCUSATE (SENOKOT S) TABLET PO SCH ×2 (09:54→21:53)
[2019-05-05] MEDS: GABAPENTIN 400 MG (NEURONTIN) CAP PEG PRN (09:54)
[2019-05-05] MEDS: FOLIC ACID 1 MG TAB PEG SCH (09:54)
[2019-05-05] MEDS: POLYETHYLENE GLYCOL 17 GM (MIRALAX) PACK PO SCH ×2 (09:54→21:53)
--- NOTE | 2019-05-05 10:13 | PM&R Progress Note ---
Subjective HPI/CC On Admission Date Seen by Provider: May 05, 2019 Time Seen by Provider: 08:30 Subjective/Events-last exam Pt had a pretty good night, pain occurred but pain medication was given which was very helpful Aspirating on salivaso pt will not be close to orally until near his DC date Tube feedings at 40cc tolerated well Labs are okay Pt has no new complaints Conferred with RN Reviewed therapy notes Reviewed meds and labs Review of Systems General: Fatigue Neurological: Weakness, Numbness, Incoordination Objective Exam Vital Signs Vital Signs Date Time Temp Pulse Resp B/P (MAP) Pulse Ox O2 Delivery O2 Flow Rate FiO2 05/05/19 16:27 36.2 83 16 117/72 (87) 93 Room Air Capillary Refill : Less Than 3 Seconds General Appearance: No Apparent Distress, WD/WN, Chronically ill, Thin HEENT: PERRL/EOMI, Normal ENT Inspection, Pharynx Normal Neck: Full Range of Motion, Normal Inspection, Non Tender, Supple, Carotid Bruit Respiratory: Chest Non Tender, Lungs Clear, Normal Breath Sounds, No Accessory Muscle Use, No Respiratory Distress Cardiovascular: Regular Rate, Rhythm, No Edema, No Gallop, No JVD, No Murmur, Normal Peripheral Pulses Gastrointestinal: Normal Bowel Sounds, No Organomegaly, No Pulsatile Mass, Non Tender, Soft, Other (PEG tube in place) Back: Normal Inspection, No CVA Tenderness, No Vertebral Tenderness Extremity: Normal Capillary Refill, Normal Inspection, Normal Range of Motion, Non Tender, No Calf Tenderness, No Pedal Edema Neurologic/Psychiatric: Alert, Oriented x3, Normal Mood/Affect, senior energy market coordinator II-XII Norm as Tested, Motor Weakness (lower legs 3/5), Sensory Deficit Skin: Normal Color, Warm/Dry Lymphatic: No Adenopathy Results/Procedures Lab Laboratory Tests 05/05/19 05:25 Patient resulted labs reviewed. FIM Transfers Therapy Code Descriptions/Definitions Functional [place] Measure: 0=Not Assessed/NA 4=Minimal Assistance 1=Total Assistance 5=Supervision or Setup 2=Maximal Assistance 6=Modified [place] 3=Moderate Assistance 7=Complete IndependenceSCALE: Activities may be completed with or without assistive devices. 6-Jwchvwbhqr-dlzqrya completes the activity by him/herself with no assistance from a helper. 5-Set-up or Clean-up Assistance-helper sets up or cleans up; patient completes activity. [place] assists only prior to or following the activity. 4-Supervision or Touching Assistance-helper provides verbal cues and/or t ouching/steadying and/or contact guard assistance as patient completes activity. Assistance may be provided throughout the activity or intermittently. 3-Partial/Moderate Assistance-helper does LESS THAN HALF the effort. [place] lifts, holds or supports trunk or limbs, but provides less than half the effort. 2-Substantial/Maximal Assistance-helper does MORE THAN HALF the effort. [place] lifts or holds trunk or limbs and provides more than half the effort. 8-Mkezrdpzu-zraggs does ALL the effort. Patient does none of the effort to complete the activity. Or, the assistance of 2 or more helpers is required for the patient to complete the activity. If activity was not attempted, code reason: 7-Patient Refused. 9-Not Applicable-not attempted and the patient did not perform the activity before the current illness, exacerbation or injury. 10-Not Attempted due to Environmental Limitations-(lack of equipment, weather restraints, etc.). 88-Not Attempted due to Medical Conditions or Safety Concerns. Roll Left to Right (QC): 4 Sit to Lying (QC): 3 Sit to Stand (QC): 3 (min assist to come to a stand and cues for hand placement for safety) Chair/Svd-ma-Zvreq Xfer(QC): 4 Car Transfer (QC): 3 Gait Training Does the Patient Walk?: Yes Walk 10 feet (QC): 4 Walk 50 ft with 2 Turns(QC): 3 (min assist for balance and safety) Walk 150 ft (QC): 3 Walking 10ft/uneven surface-QC: 3 Gait Assistive Device: FWW Wheelchair Training Does the Pt Use a Wheelchair?: No Wheel 50 ft with 2 turns (QC): 9 Wheel 150 ft (QC): 9 Type of Wheelchair: Manual Stair Training #of Steps: 4 1 Step (curb) (QC): 3 4 Steps (QC): 3 12 Steps (QC): 88 Balance Picking up an Object (QC): 88 ADL-Treatment Eating (QC): 88 Oral Hygiene (QC): 6 Bathing Location: L Arm, R Arm, L Upper Leg, R Upper Leg, L Lower Leg (including foot), R Lower Leg (including foot), Chest, Abdomen, Buttocks, Perineal Area Shower/Bathe Self (QC): 4 Upper Body Dressing (QC): 5 Lower Body Dressing (QC): 4 (Footwear (QC) 2) On/Off Footwear (QC): 2 (Max assist to doff/don slipper socks.) Toileting Hygiene (QC): 7 Toilet Transfer (QC): 7 Assessment/Plan Assessment and Plan Assess & Plan/Chief Complaint 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
--- NOTE | 2019-05-05 10:57 | Physical Therapy Daily Note ---
PT Daily Note-Current Subjective Patient in bed pre tx, agrees to PT, has 5/10 pain in toes of both feet. Appearance Patient BTB post tx with nurse call, phone, tray, all needs met. Mental Status Patient Orientation: Normal For Age Attachments: PEG Tube Transfers SCALE: Activities may be completed with or without assistive devices. 1-Sdlwllicgu-vxretyb completes the activity by him/herself with no assistance from a helper. 5-Set-up or Clean-up Assistance-helper sets up or cleans up; patient completes activity. [place] assists only prior to or following the activity. 4-Supervision or Touching Assistance-helper provides verbal cues and/or touching/steadying and/or contact guard assistance as patient completes activity. Assistance may be provided throughout the activity or intermittently. 3-Partial/Moderate Assistance-helper does LESS THAN HALF the effort. [place] lifts, holds or supports trunk or limbs, but provides less than half the effort. 2-Substantial/Maximal Assistance-helper does MORE THAN HALF the effort. [place] lifts or holds trunk or limbs and provides more than half the effort. 7-Poussszlz-fnuhqi does ALL the effort. Patient does none of the effort to complete the activity. Or, the assistance of 2 or more helpers is required for the patient to complete the activity. If activity was not attempted, code reason: 7-Patient Refused. 9-Not Applicable-not attempted and the patient did not perform the activity before the current illness, exacerbation or injury. 10-Not Attempted due to Environmental Limitations-(lack of equipment, weather restraints, etc.). 88-Not Attempted due to Medical Conditions or Safety Concerns. Roll Left & Right (QC): 6 Sit to Lying (QC): 6 Lying to Sitting/Side of Bed(Q: 6 Sit to Stand (QC): 4 Chair/Kqp-jm-Zkhds Xfer(QC): 4 CGA for sit <-> stand and transfers, good use of hands and positioning Gait Training Distance: 150', 200', 100' Walk 10 feet (QC): 4 Walk 50 ft with 2 Turns(QC): 4 Walk 150 ft (QC): 4 Gait Assistive Device: FWW CGA, cues to ambulate slowly and carefully, slightly uncoordinated steps due to weakness, no knee buckling Exercises Seated Therapy Exercises: Ankle pumps (x20), Hip abd/add (x20 with RTB) Standing: Heel/toe raises, Mini squats Standing Reps: 15 LAQ alternating for 5 min with 2# ankle weight bilaterally NuStep Minutes: 15 NuStep Workload: 4 Treatments bed mobility and transfers, ambulation, LE strengthening Assessment Current Status: Fair Progress improving endurance PT Short Term Goals Short Term Goals Time Frame: May 12, 2019 Roll Left & Right: 4 Sit to lyin Lying to sitting on side of be: 4 Sit to stand: 4 Chair/vsa-od-ysyjr transfer: 4 Toilet transfer: 4 Car transfer: 4 Walk 10 feet: 4 Walk 50 feet with two turns: 4 Walk 150 feet: 4 Walking 10ft on uneven surface: 4 1 step (curb): 4 4 steps: 4 PT Central Scheduler Goals Assisted Goals PT Central Scheduler Goals Time Frame: May 25, 2019 Roll Left & Right (QC): 6 Sit to Lying (QC): 6 Lying-Sitting on Side/Bed(QC): 6 Sit to Stand (QC): 6 Chair/Mei-ep-Fplad Xfer(QC): 6 Toilet Transfer (QC): 6 Car Transfer (QC): 6 Does the Patient Walk: Yes Walk 10 feet (QC): 6 Walk 50ft with 2 Turns (QC): 6 Walk 150 ft (QC): 6 Walking 10ft on Uneven Surface: 6 1 Step (curb) (QC): 6 4 Steps (QC): 6 12 Steps (QC): 6 Picking up an Object (QC): 4 Does the Pt use WC or Scooter?: No Type: N/A Type: N/A PT Plan Problem List Problem List: Activity Tolerance, Functional Strength, Safety, Balance, Gait, Transfer, Bed Mobility Treatment/Plan Treatment Plan: Continue Plan of Care Treatment Plan: Bed Mobility, Education, Functional Activity [place], Functional Strength, Group Therapy, Gait, Safety, Therapeutic Exercise, Transfers Treatment Duration: May 25, 2019 Frequency: Modified Program (IRF) Estimated Hrs Per Day: 1.5 hours per day Patient and/or Family Agrees t: Yes Safety Risks/Education Patient Education: Gait Training, Transfer Techniques, Correct Positioning, Safety Issues Teaching Recipient: Patient Teaching Methods: Demonstration, Discussion Response to Teaching: Reinforcement Needed Time/GCodes Time In: 1000 Time Out: 1100 Total Billed Treatment Time: 60 Total Billed Treatment 1 visit GT 30' EX 30' VAIBHAV DYER PT May 05, 2019 10:57 POS
[2019-05-05] MEDS: ENOXAPARIN 40 MG/0.4 ML (LOVENOX) SYR SC SCH (11:50)
--- NOTE | 2019-05-05 12:22 | NUR ---
Initial assessment completed with patient. Patient was admitted to ARU 05/04/19 from [facility] for Guillain [place]. 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 DME: Because of his prior independent level, he has no medical equipment. Anticipate FWW and tub transfer bench, other recommendations to be determined. HHC: Likely recommended depending on patient progress, agency to be explored for preference and in relation to patient insurance provider. NUTRITION: Patient currently with PEG feedings, following for continuation vs discontinuance for home nutritional needs. INSURANCE: Through employer, [employer] [place], including Rx. Patient shared about his stay at , he indicates he was on a ventilator for 13 days and states he believes this relative to his current dysphagia. Patient's son Bud Crawford resides with him, Bud has Asperger's Syndrome. Bud is being monitored and assisted by other family members while patient is absent. Patient has 4 sons, Bud and Krishna, John in [facility], and Rod resides with his mother in [place]. Explained purpose of weekly Rehab Team Conference, patient indicated understanding.
--- NOTE | 2019-05-05 14:24 | NUR ---
RD ASSESSMENT: IMPRESSION: Pt was awake and pleasant for nutrition assessment. Note pt has PMH of Guillain-[place] and dysphagia, per chart review. Note pt currently on TF order of Jevity 1.5 at goal rate of 65 ml/hr. Note pt currently at rate of 40ml/hr. Pt states tolerating the tube feed well. Pt states no issues with n/v/c/d at this time, and that his last BM was 2 days ago. Note pt currently on bowel regimen of miralax BID; senna BID; and colace PRN, per chart review. Pt states that he feels like his swallow function has improved and his last assessment was 6 days ago. INTERVENTION: Continue with current TF order of Jevity 1.5 at goal rate of 65 ml/hr. Keep advancing 10 ml q6h as tolerated. Pt may benefit from swallow evaluation to determine if he could tolerate PO intake. Will continue to follow and reassess as pt needs and status change. Tiffanie Queen, MS, RD, LD
--- NOTE | 2019-05-05 14:38 | Physical Therapy Daily Note ---
PT Daily Note-Current Subjective pt in bed pre-tx agrees to therapy, denies pain. pt very appreciative and motivated with therapies. Appearance pt in bed post tx with call light, room phone, tray table in reach with all needs met at this time. Mental Status Patient Orientation: Person, Place, Time, Situation Attachments: PEG Tube Transfers SCALE: Activities may be completed with or without assistive devices. 5-Ijkdcczdhz-zxwenfh completes the activity by him/herself with no assistance from a helper. 5-Set-up or Clean-up Assistance-helper sets up or cleans up; patient completes activity. [place] assists only prior to or following the activity. 4-Supervision or Touching Assistance-helper provides verbal cues and/or touching/steadying and/or contact guard assistance as patient completes activity. Assistance may be provided throughout the activity or intermittently. 3-Partial/Moderate Assistance-helper does LESS THAN HALF the effort. [place] lifts, holds or supports trunk or limbs, but provides less than half the effort. 2-Substantial/Maximal Assistance-helper does MORE THAN HALF the effort. [place] lifts or holds trunk or limbs and provides more than half the effort. 3-Pzsdqstvd-bnxkzz does ALL the effort. Patient does none of the effort to complete the activity. Or, the assistance of 2 or more helpers is required for the patient to complete the activity. If activity was not attempted, code reason: 7-Patient Refused. 9-Not Applicable-not attempted and the patient did not perform the activity before the current illness, exacerbation or injury. 10-Not Attempted due to Environmental Limitations-(lack of equipment, weather restraints, etc.). 88-Not Attempted due to Medical Conditions or Safety Concerns. Sit to Lying (QC): 4 (SBA) Lying to Sitting/Side of Bed(Q: 4 (SBA) Sit to Stand (QC): 4 (SBA) Gait Training Distance: 150'x2 Walk 10 feet (QC): 4 (SBA) Walk 50 ft with 2 Turns(QC): 4 (SBA) Walk 150 ft (QC): 4 (SBA) Gait Assistive Device: FWW as pt fatigues gait gets short and choppy. standing break relieves gait pattern Exercises Supine Ex: Ankle pumps, Quad Set, Glut sets, Heel Slides, Short Arc Quads, Straight leg raise, Hip abd/add Supine Reps: 30 (15reps 2 sets) Treatments pt performed functional LE strengthening, bed mobility training, transfer training, skilled ambulation training, and education. Assessment Current Status: Good Progress pt started to fatigue in second bout of gait training. Pt completed all LE strengthening exercises and attempted to do extra. Pt is very motivated and appreciative of therapy. PT Short Term Goals Short Term Goals Time Frame: May 12, 2019 Roll Left & Right: 4 Sit to lyin Lying to sitting on side of be: 4 Sit to stand: 4 Chair/phw-jv-nidzu transfer: 4 Toilet transfer: 4 Car transfer: 4 Walk 10 feet: 4 Walk 50 feet with two turns: 4 Walk 150 feet: 4 Walking 10ft on uneven surface: 4 1 step (curb): 4 4 steps: 4 PT [employer] Goals [facility] Goals PT [employer] Goals Time Frame: May 25, 2019 Roll Left & Right (QC): 6 Sit to Lying (QC): 6 Lying-Sitting on Side/Bed(QC): 6 Sit to Stand (QC): 6 Chair/Rxr-vx-Iqwwa Xfer(QC): 6 Toilet Transfer (QC): 6 Car Transfer (QC): 6 Does the Patient Walk: Yes Walk 10 feet (QC): 6 Walk 50ft with 2 Turns (QC): 6 Walk 150 ft (QC): 6 Walking 10ft on Uneven Surface: 6 1 Step (curb) (QC): 6 4 Steps (QC): 6 12 Steps (QC): 6 Picking up an Object (QC): 4 Does the Pt use WC or Scooter?: No Type: N/A Type: N/A PT Plan Problem List Problem List: Activity Tolerance, Functional Strength, Safety, Balance, Gait, Transfer, Bed Mobility, ROM Treatment/Plan Treatment Plan: Continue Plan of Care Treatment Plan: Bed Mobility, Education, Functional Activity [place], Functional Strength, Group Therapy, Gait, Safety, Therapeutic Exercise, Transfers Treatment Duration: May 25, 2019 Frequency: Modified Program (IRF) Estimated Hrs Per Day: 1.5 hours per day Patient and/or Family Agrees t: Yes Safety Risks/Education Patient Education: Gait Training, Transfer Techniques, Correct Positioning, Safety Issues Teaching Recipient: Patient Teaching Methods: Demonstration, Discussion Response to Teaching: Return Demonstration, Reinforcement Needed Time/GCodes Time In: 1330 Time Out: 1400 Total Billed Treatment Time: 30 Total Billed Treatment 1 visit GT 15' EX 15' VAIBHAV DYER PT May 05, 2019 14:38 POS
[2019-05-05 16:27] VITALS: BP 117/72
[2019-05-05] MEDS: MELATONIN 3 MG TABLET PEG SCH (22:03)
[2019-05-05] MEDS: AMITRIPTYLINE 25 MG (ELAVIL) TAB PO SCH (22:03)
[2019-05-06] MEDS: oxyCODONE 5 MG/5 ML ORAL SOLN (roxiCODONE) 5 ML UDC PEG PRN ×3 (03:53→16:49)
[2019-05-06 06:00] VITALS: BP 127/69
[2019-05-06] MEDS: THIAMINE 100 MG (VITAMIN B-1) TAB PEG SCH (07:26)
[2019-05-06] MEDS: CYANOCOBALAMIN 1,000 MCG (VITAMIN B-12) TABLET PEG SCH (07:26)
[2019-05-06] MEDS: MULTIVITAMINS LIQUID 15 ML UDC PEG SCH (07:27)
[2019-05-06] MEDS: PANTOPRAZOLE 2 MG/ML LIQUID 200 ML (PROTONIX) PEG SCH ×3 (07:34)
--- NOTE | 2019-05-06 08:07 | Physical Therapy Daily Note ---
PT Daily Note-Current Subjective Pt agreeable to PT session. States his neuropathy is bothering him this morning, has had his medication already and is a little better. Pain Numeric Pain Scale: 6 (hands and feet neuropathy pain, was 8/10 before meds) Appearance Pt sitting up in w/c upon arrival. Pt sitting up in recliner at end of session, call light, phone and bedside table within reach Mental Status Patient Orientation: Person, Place, Time, Eyes Open, Situation, Normal For Age Attachments: NG Tube Transfers SCALE: Activities may be completed with or without assistive devices. 8-Suraflkogu-fmmxqpr completes the activity by him/herself with no assistance from a helper. 5-Set-up or Clean-up Assistance-helper sets up or cleans up; patient completes activity. [place] assists only prior to or following the activity. 4-Supervision or Touching Assistance-helper provides verbal cues and/or touching/steadying and/or contact guard assistance as patient completes activity. Assistance may be provided throughout the activity or intermittently. 3-Partial/Moderate Assistance-helper does LESS THAN HALF the effort. [place] lifts, holds or supports trunk or limbs, but provides less than half the effort. 2-Substantial/Maximal Assistance-helper does MORE THAN HALF the effort. [place] lifts or holds trunk or limbs and provides more than half the effort. 0-Pbgfpxvbw-cshsrk does ALL the effort. Patient does none of the effort to complete the activity. Or, the assistance of 2 or more helpers is required for the patient to complete the activity. If activity was not attempted, code reason: 7-Patient Refused. 9-Not Applicable-not attempted and the patient did not perform the activity before the current illness, exacerbation or injury. 10-Not Attempted due to Environmental Limitations-(lack of equipment, weather restraints, etc.). 88-Not Attempted due to Medical Conditions or Safety Concerns. Sit to Stand (QC): 4 good safe technique with sit to and from stand, min inst to reach back for arms of chair to sit Gait Training Does the Patient Walk?: Yes Distance: 155 x2 Walk 10 feet (QC): 4 Walk 50 ft with 2 Turns(QC): 4 Walk 150 ft (QC): 4 Gait Persons Needed: 1 Gait Assistive Device: FWW slight fwd posture, able to correct with min verb inst, fair step length and height, fair pace, follow with IV pole Exercises NuStep Minutes: 15 (occasional brief rest breaks during time on NuStep) NuStep Workload: 6 (seat 11, arms 11) Treatments education, safety, transfers, gait, strength, balance, functional mobility, activity tolerance Assessment Current Status: Good Progress PT Short Term Goals Short Term Goals Time Frame: May 12, 2019 Roll Left & Right: 4 Sit to lyin Lying to sitting on side of be: 4 Sit to stand: 4 Chair/kux-am-htxoy transfer: 4 Toilet transfer: 4 Car transfer: 4 Walk 10 feet: 4 Walk 50 feet with two turns: 4 Walk 150 feet: 4 Walking 10ft on uneven surface: 4 1 step (curb): 4 4 steps: 4 PT Halfway Goals Global Human Resources Director Goals PT Halfway Goals Time Frame: May 25, 2019 Roll Left & Right (QC): 6 Sit to Lying (QC): 6 Lying-Sitting on Side/Bed(QC): 6 Sit to Stand (QC): 6 Chair/Ago-ie-Yzxsn Xfer(QC): 6 Toilet Transfer (QC): 6 Car Transfer (QC): 6 Does the Patient Walk: Yes Walk 10 feet (QC): 6 Walk 50ft with 2 Turns (QC): 6 Walk 150 ft (QC): 6 Walking 10ft on Uneven Surface: 6 1 Step (curb) (QC): 6 4 Steps (QC): 6 12 Steps (QC): 6 Picking up an Object (QC): 4 Does the Pt use WC or Scooter?: No Type: N/A Type: N/A PT Plan Treatment/Plan Treatment Plan: Continue Plan of Care Treatment Plan: Bed Mobility, Education, Functional Activity [place], Functional Strength, Group Therapy, Gait, Safety, Therapeutic Exercise, Transfers Treatment Duration: May 25, 2019 Frequency: Modified Program (IRF) Estimated Hrs Per Day: 1.5 hours per day Patient and/or Family Agrees t: Yes Safety Risks/Education Patient Education: Gait Training, Transfer Techniques, Safety Issues Teaching Recipient: Patient Teaching Methods: Discussion Response to Teaching: Verbalize Understanding, Return Demonstration Time/GCodes Time In: 755 Time Out: 829 Total Billed Treatment Time: 34 Total Billed Treatment 1 visit, EX x15 min, GT x19 min GLORY PEPE HOG COUNTER May 06, 2019 08:07 POS
[2019-05-06] MEDS: POLYETHYLENE GLYCOL 17 GM (MIRALAX) PACK PO SCH ×2 (08:33→20:42)
[2019-05-06] MEDS: SENNA W/DOCUSATE (SENOKOT S) TABLET PO SCH ×2 (08:33→20:42)
--- NOTE | 2019-05-06 10:45 | Occupational Ther Daily Note ---
OT Current Status-Daily Note Subjective Pt seen in room, up in w/c, agreeable to OT. Pain not mentioned. Appearance Alert, cooperative ADL-Treatment Therapy Code Descriptions/Definitions Functional [place] Measure: 0=Not Assessed/NA 4=Minimal Assistance 1=Total Assistance 5=Supervision or Setup 2=Maximal Assistance 6=Modified [place] 3=Moderate Assistance 7=Complete IndependenceSCALE: Activities may be completed with or without assistive devices. 1-Yudghhzrcz-iehzyuf completes the activity by him/herself with no assistance from a helper. 5-Set-up or Clean-up Assistance-helper sets up or cleans up; patient completes activity. [place] assists only prior to or following the activity. 4-Supervision or Touching Assistance-helper provides verbal cues and/or touching/steadying and/or contact guard assistance as patient completes activity . Assistance may be provided throughout the activity or intermittently. 3-Partial/Moderate Assistance-helper does LESS THAN HALF the effort. [place] lifts, holds or supports trunk or limbs, but provides less than half the effort. 2-Substantial/Maximal Assistance-helper does MORE THAN HALF the effort. [place] lifts or holds trunk or limbs and provides more than half the effort. 0-Hiwcorxbl-ezubiw does ALL the effort. Patient does none of the effort to complete the activity. Or, the assistance of 2 or more helpers is required for the patient to complete the activity. If activity was not attempted, code reason: 7-Patient Refused. 9-Not Applicable-not attempted and the patient did not perform the activity before the current illness, exacerbation or injury. 10-Not Attempted due to Environmental Limitations-(lack of equipment, weather restraints, etc.). 88-Not Attempted due to Medical Conditions or Safety Concerns. Other Treatment Pt propelled w/c to gym, with OT managing tube feeding pump. Pt positioned himself at table but had some difficulty locking brakes on w/c. Pt reported that he had used the arm bike yesterday with one break and was really tired after completion. Today he completed 15 minutes bilat UE ex on arm bike set at 15W resistance, taking 2 brief recovery breaks, to help pace himself. Discussed pacing for energy conservation and he reported that he used this technique at work. UE ex to strengthen arms to help with ADLs and locking w/c brakes. Pt propelled w/c back to room and was encouraged to get out of his room this weekend, using w/c. Pt transferred into bed with SBA but with several cues for positioning w/c alongside bed. Pt left up in bed, 4 rails up per his request, all needs met. Education OT Patient Education: Energy conservation, Progress toward Goal/Update tx plan, Purpose of tx/functional activities, Transfer techniques Teaching Recipient: Patient Teaching Methods: Discussion Response to Teaching: Verbalize Understanding, Return Demonstration OT Fci Goals Fci Goals Time Frame: May 18, 2019 Eating (QC): 6 Oral Hygiene (QC): 6 Toileting Hygiene (QC): 6 Shower/Bathe Self (QC): 6 Upper Body Dressing (QC): 6 Lower Body Dressing (QC): 6 On/Off Footwear (QC): 6 Additional Goals: 1-Demonstrate ADL Tasks, 2-Verbalize Understanding, 3- ImproveStrength/[place] 1=Demonstrate adherence to instructed precautions during ADL tasks. 2=Patient will verbalize/demonstrate understanding of assistive devices/mod ifications for ADL. 3=Patient will improve strength/tolerance for activity to enable patient to perform ADL's. OT Education/Plan Discharge Recommendations Plan/Recommendations: Continue POC Treatment Plan/Plan of Care Patient would benefit from OT for education, treatment and training to promote independence in ADL's, mobility, safety and/or upper extremity function for ADL's. Plan of Care: ADL Retraining, Functional Mobility, Group Exercise/Act as Ind, UE Funct Exercise/Act Treatment Duration: May 18, 2019 Frequency: At least 5 of 7 days/Wk (IRF) Estimated Hrs Per Day: 1.5 hours per day Agreement: Yes Rehab Potential: Good Time/GCodes Start Time: 09:30 Stop Time: 09:58 Total Time Billed (hr/min): 28 Billed Treatment Time visit, 28 minutes exercise TOSHIA GENAO OT May 06, 2019 10:45 POS
[2019-05-06] MEDS: ENOXAPARIN 40 MG/0.4 ML (LOVENOX) SYR SC SCH (10:51)
[2019-05-06] MEDS: FOLIC ACID 1 MG TAB PEG SCH (10:51)
--- NOTE | 2019-05-06 12:26 | PM&R Progress Note ---
Subjective HPI/CC On Admission Date Seen by Provider: May 06, 2019 Time Seen by Provider: 10:30 Subjective/Events-last exam Pt had a pretty good night, pain occurred as usual but pain medication was given which was very helpful Aspiration risk noted and he is aware Tube feedings at 40cc tolerated well Labs stable from day after admit BM yesterday Stage 1 coccyx pressure area Pt has no new complaints Conferred with RN Reviewed therapy notes Reviewed meds and labs Review of Systems HEENT: Dysphasia Musculoskeletal: foot pain Neurological: Weakness, Numbness, Incoordination Objective Exam Vital Signs Vital Signs Date Time Temp Pulse Resp B/P (MAP) Pulse Ox O2 Delivery O2 Flow Rate FiO2 05/06/19 09:05 Room Air 05/06/19 06:00 36.2 74 18 127/69 (88) 96 Capillary Refill : Less Than 3 Seconds General Appearance: No Apparent Distress, WD/WN, Chronically ill, Thin HEENT: PERRL/EOMI, Normal ENT Inspection, Pharynx Normal Neck: Full Range of Motion, Normal Inspection, Non Tender, Supple, Carotid Bruit Respiratory: Chest Non Tender, Lungs Clear, Normal Breath Sounds, No Accessory Muscle Use, No Respiratory Distress Cardiovascular: Regular Rate, Rhythm, No Edema, No Gallop, No JVD, No Murmur, Normal Peripheral Pulses Gastrointestinal: Normal Bowel Sounds, No Organomegaly, No Pulsatile Mass, Non Tender, Soft, Other (PEG tube in place) Back: Normal Inspection, No CVA Tenderness, No Vertebral Tenderness Extremity: Normal Capillary Refill, Normal Inspection, Normal Range of Motion, Non Tender, No Calf Tenderness, No Pedal Edema Neurologic/Psychiatric: Alert, Oriented x3, Normal Mood/Affect, needle bar molder II-XII Norm as Tested, Motor Weakness (lower legs 3/5), Sensory Deficit Skin: Normal Color, Warm/Dry Lymphatic: No Adenopathy Results/Procedures Lab Patient resulted labs reviewed. FIM Transfers Therapy Code Descriptions/Definitions Functional [place] Measure: 0=Not Assessed/NA 4=Minimal Assistance 1=Total Assistance 5=Supervision or Setup 2=Maximal Assistance 6=Modified [place] 3=Moderate Assistance 7=Complete IndependenceSCALE: Activities may be completed with or without assistive devices. 7-Ufvnmxgnwp-dkmtcxh completes the activity by him/herself with no assistance from a helper. 5-Set-up or Clean-up Assistance-helper sets up or cleans up; patient completes activity. [place] assists only prior to or following the activity. 4-Supervision or Touching Assistance-helper provides verbal cues and/or tracey ivanna/steadying and/or contact guard assistance as patient completes activity. Assistance may be provided throughout the activity or intermittently. 3-Partial/Moderate Assistance-helper does LESS THAN HALF the effort. [place] lifts, holds or supports trunk or limbs, but provides less than half the effort. 2-Substantial/Maximal Assistance-helper does MORE THAN HALF the effort. [place] lifts or holds trunk or limbs and provides more than half the effort. 4-Zvzqloszo-gkxutt does ALL the effort. Patient does none of the effort to complete the activity. Or, the assistance of 2 or more helpers is required for the patient to complete the activity. If activity was not attempted, code reason: 7-Patient Refused. 9-Not Applicable-not attempted and the patient did not perform the activity before the current illness, exacerbation or injury. 10-Not Attempted due to Environmental Limitations-(lack of equipment, weather restraints, etc.). 88-Not Attempted due to Medical Conditions or Safety Concerns. Roll Left to Right (QC): 6 Sit to Lying (QC): 4 (SBA) Sit to Stand (QC): 4 Chair/Oih-rt-Bxkyt Xfer(QC): 4 Car Transfer (QC): 3 Gait Training Does the Patient Walk?: Yes Distance: 155 x2 Walk 10 feet (QC): 4 Walk 50 ft with 2 Turns(QC): 4 Walk 150 ft (QC): 4 Walking 10ft/uneven surface-QC: 3 Gait Persons Needed: 1 Gait Assistive Device: FWW Wheelchair Training Does the Pt Use a Wheelchair?: No Wheel 50 ft with 2 turns (QC): 9 Wheel 150 ft (QC): 9 Type of Wheelchair: Manual Stair Training #of Steps: 4 1 Step (curb) (QC): 3 4 Steps (QC): 3 12 Steps (QC): 88 Balance Picking up an Object (QC): 88 ADL-Treatment Eating (QC): 88 Oral Hygiene (QC): 6 Bathing Location: L Arm, R Arm, L Upper Leg, R Upper Leg, L Lower Leg (including foot), R Lower Leg (including foot), Chest, Abdomen, Buttocks, Perineal Area Shower/Bathe Self (QC): 4 Upper Body Dressing (QC): 5 Lower Body Dressing (QC): 4 (Footwear (QC) 2) On/Off Footwear (QC): 2 (Max assist to doff/don slipper socks.) Toileting Hygiene (QC): 7 Toilet Transfer (QC): 7 Assessment/Plan Assessment and Plan Assess & Plan/Chief Complaint 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
[2019-05-06 16:00] VITALS: BP 119/75
[2019-05-06] MEDS: MELATONIN 3 MG TABLET PEG SCH (21:54)
[2019-05-06] MEDS: AMITRIPTYLINE 25 MG (ELAVIL) TAB PO SCH (21:54)
[2019-05-07] MEDS: oxyCODONE 5 MG/5 ML ORAL SOLN (roxiCODONE) 5 ML UDC PEG PRN ×3 (00:06→19:54)
[2019-05-07 05:50] VITALS: BP 136/84
[2019-05-07] MEDS: CYANOCOBALAMIN 1,000 MCG (VITAMIN B-12) TABLET PEG SCH (06:52)
[2019-05-07] MEDS: THIAMINE 100 MG (VITAMIN B-1) TAB PEG SCH (06:52)
[2019-05-07] MEDS: MULTIVITAMINS LIQUID 15 ML UDC PEG SCH (06:52)
[2019-05-07] MEDS: PANTOPRAZOLE 2 MG/ML LIQUID 200 ML (PROTONIX) PEG SCH ×3 (06:52)
[2019-05-07] MEDS: SENNA W/DOCUSATE (SENOKOT S) TABLET PO SCH ×2 (07:37→20:02)
[2019-05-07] MEDS: POLYETHYLENE GLYCOL 17 GM (MIRALAX) PACK PO SCH ×2 (07:37→20:02)
--- NOTE | 2019-05-07 09:00 | NUR ---
Allevyn placed on buttocks / Reddened buttocks but blanchable. No open sores noted.
--- NOTE | 2019-05-07 09:25 | NUR ---
Pt states pain is at tolerable level at this time. Pt is in bed/watching television. SCD's are on. Pt states he will be getting up in w/c and moving around in hallways for exercise. Pt lungs are clear but diminished. Pt has cold feet/appropriate color/appropriate foot care. Pt states he continues to have tingling of feet bilaterally. Homans negative/no edema noted. Feeding tube is in place/continues to run Jevity at 65ml/hr. Pt will be monitored.
--- NOTE | 2019-05-07 11:46 | PM&R Progress Note ---
Subjective HPI/CC On Admission Date Seen by Provider: May 07, 2019 Time Seen by Provider: 11:45 Subjective/Events-last exam Pt had a pretty good night, pain occurred as usual but pain medication does a good job Aspiration risk noted and he is aware and wanted to know if he can have the swallow study again tomorrow Tube feedings at 40cc tolerated well Labs will be checked tomorrow BM so he feels good for that Stage 1 coccyx pressure area is healing well Pt has no new complaints Conferred with RN Reviewed therapy notes Reviewed meds and labs Review of Systems General: Fatigue HEENT: Dysphasia Musculoskeletal: leg pain Objective Exam Vital Signs Vital Signs Date Time Temp Pulse Resp B/P (MAP) Pulse Ox O2 Delivery O2 Flow Rate FiO2 05/07/19 09:19 Room Air 05/07/19 05:50 36.6 75 16 136/84 (101) 96 Capillary Refill : Less Than 3 Seconds General Appearance: No Apparent Distress, WD/WN, Chronically ill, Thin HEENT: PERRL/EOMI, Normal ENT Inspection, Pharynx Normal Neck: Full Range of Motion, Normal Inspection, Non Tender, Supple, Carotid Bruit Respiratory: Chest Non Tender, Lungs Clear, Normal Breath Sounds, No Accessory Muscle Use, No Respiratory Distress Cardiovascular: Regular Rate, Rhythm, No Edema, No Gallop, No JVD, No Murmur, Normal Peripheral Pulses Gastrointestinal: Normal Bowel Sounds, No Organomegaly, No Pulsatile Mass, Non Tender, Soft, Other (PEG tube in place) Back: Normal Inspection, No CVA Tenderness, No Vertebral Tenderness Extremity: Normal Capillary Refill, Normal Inspection, Normal Range of Motion, Non Tender, No Calf Tenderness, No Pedal Edema Neurologic/Psychiatric: Alert, Oriented x3, Normal Mood/Affect, 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 FIM Transfers Therapy Code Descriptions/Definitions Functional [place] Measure: 0=Not Assessed/NA 4=Minimal Assistance 1=Total Assistance 5=Supervision or Setup 2=Maximal Assistance 6=Modified [place] 3=Moderate Assistance 7=Complete IndependenceSCALE: Activities may be completed with or without assistive devices. 4-Gpyieorwwf-emcwmzj completes the activity by him/herself with no assistance from a helper. 5-Set-up or Clean-up Assistance-helper sets up or cleans up; patient completes activity. [place] assists only prior to or following the activity. 4-Supervision or Touching Assistance-helper provides verbal cues and/or touching/steadying and/or contact guard assistance as patient completes activity. Assistance may be provided throughout the activity or intermittently. 3-Partial/Moderate Assistance-helper does LESS THAN HALF the effort. [place] lifts, holds or supports trunk or limbs, but provides less than half the effort. 2-Substantial/Maximal Assistance-helper does MORE THAN HALF the effort. [place] lifts or holds trunk or limbs and provides more than half the effort. 4-Cmjtvlewz-zkkeqn does ALL the effort. Patient does none of the effort to complete the activity. Or, the assistance of 2 or more helpers is required for the patient to complete the activity. If activity was not attempted, code reason: 7-Patient Refused. 9-Not Applicable-not attempted and the patient did not perform the activity before the current illness, exacerbation or injury. 10-Not Attempted due to Environmental Limitations-(lack of equipment, weather restraints, etc.). 88-Not Attempted due to Medical Conditions or Safety Concerns. Roll Left to Right (QC): 6 Sit to Lying (QC): 4 (SBA) Sit to Stand (QC): 4 Chair/Bmo-gs-Sxkto Xfer(QC): 4 Car Transfer (QC): 3 Gait Training Does the Patient Walk?: Yes Distance: 155 x2 Walk 10 feet (QC): 4 Walk 50 ft with 2 Turns(QC): 4 Walk 150 ft (QC): 4 Walking 10ft/uneven surface-QC: 3 Gait Persons Needed: 1 Gait Assistive Device: FWW Wheelchair Training Does the Pt Use a Wheelchair?: No Wheel 50 ft with 2 turns (QC): 9 Wheel 150 ft (QC): 9 Type of Wheelchair: Manual Stair Training #of Steps: 4 1 Step (curb) (QC): 3 4 Steps (QC): 3 12 Steps (QC): 88 Balance Picking up an Object (QC): 88 ADL-Treatment Eating (QC): 88 Oral Hygiene (QC): 6 Bathing Location: L Arm, R Arm, L Upper Leg, R Upper Leg, L Lower Leg (including foot), R Lower Leg (including foot), Chest, Abdomen, Buttocks, Perineal Area Shower/Bathe Self (QC): 4 Upper Body Dressing (QC): 5 Lower Body Dressing (QC): 4 (Footwear (QC) 2) On/Off Footwear (QC): 2 (Max assist to doff/don slipper socks.) Toileting Hygiene (QC): 7 Toilet Transfer (QC): 7 Assessment/Plan Assessment and Plan Assess & Plan/Chief Complaint 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
[2019-05-07] MEDS: ENOXAPARIN 40 MG/0.4 ML (LOVENOX) SYR SC SCH (12:16)
[2019-05-07] MEDS: FOLIC ACID 1 MG TAB PEG SCH (13:29)
--- NOTE | 2019-05-07 13:47 | NUR ---
Pt given pain medication/vitamin. 0 residual drawn before flush. Flushed with 30cc before and after medication. Pt tolerated well. Pt will be monitored for pain relief. Incision site of PEG tube is clean/dry/intact.
[2019-05-07 17:05] VITALS: BP 149/87
--- NOTE | 2019-05-07 17:20 | NUR ---
Peg tube dressing changed/ small amount of drainage noted/ no redness/no swelling. pt tolerated fairly well
--- NOTE | 2019-05-07 19:06 | NUR ---
bedside report received from AIDE VALENTINE/ WATSON VALENTINE, assume care of pt
[2019-05-07] MEDS: MELATONIN 3 MG TABLET PEG SCH (19:53)
[2019-05-07] MEDS: AMITRIPTYLINE 25 MG (ELAVIL) TAB PO SCH (19:54)
--- NOTE | 2019-05-07 19:54 | NUR ---
pt refused miralax & Senokot, c/o pain to salo lower legs level 7/10 on numeric scale Roxicodone 5mg liq per g-tube
--- NOTE | 2019-05-07 20:30 | NUR ---
pt rates pain at 2/10 on numeric scale
[2019-05-08] MEDS: oxyCODONE 5 MG/5 ML ORAL SOLN (roxiCODONE) 5 ML UDC PEG PRN ×4 (01:56→19:38)
--- NOTE | 2019-05-08 01:56 | NUR ---
c/o salo lower leg pain level 8/10 on numeric scale, Roxicodone 5mg per G-TUBE given
--- NOTE | 2019-05-08 02:30 | NUR ---
resting quietly in bed, pain level 0/10 on flacc scale
[2019-05-08 05:14] LABS: BASOPHILS % (AUTO) 0 % (0-10); EOSINOPHILS # (AUTO) 0.4 10^3/uL (0.0-0.3); EOSINOPHILS % (AUTO) 8 % (0-10); HEMATOCRIT 38 % (40-54); HEMOGLOBIN 12.4 G/DL (13.3-17.7); LYMPHOCYTES # (AUTO) 1.6 X 10^3 (1.0-4.0); LYMPHOCYTES % (AUTO) 30 % (12-44); MEAN CORPUSCULAR HEMOGLOBIN 34 PG (25-34); MEAN CORPUSCULAR HGB CONC 33 G/DL (32-36); MEAN CORPUSCULAR VOLUME 105 FL (80-99); MEAN PLATELET VOLUME 12.9 FL (7.4-10.4); MONOCYTES # (AUTO) 0.5 X 10^3 (0.0-1.0); MONOCYTES % (AUTO) 9 % (0-12); NEUTROPHILS # (AUTO) 2.9 X 10^3 (1.8-7.8); NEUTROPHILS % (AUTO) 53 % (42-75); PLATELET COUNT 178 10^3/uL (130-400); RED CELL DISTRIBUTION WIDTH 12.3 % (10.0-14.5); WHITE BLOOD COUNT 5.4 10^3/uL (4.3-11.0)
[2019-05-08 05:44] LABS: ALANINE AMINOTRANSFERASE 39 U/L (0-55); ALBUMIN 3.5 GM/DL (3.2-4.5); ALKALINE PHOSPHATASE 63 U/L (40-136); BILIRUBIN,TOTAL 0.3 MG/DL (0.1-1.0); BUN/CREATININE RATIO 25; CALCIUM 9.4 MG/DL (8.5-10.1); CARBON DIOXIDE 28 MMOL/L (21-32); CHLORIDE 99 MMOL/L (98-107); CREATININE SERUM 0.73 MG/DL (0.60-1.30); GFR ESTIMATED > 60; GLUCOSE 113 MG/DL (70-105); POTASSIUM 4.4 MMOL/L (3.6-5.0); SODIUM 138 MMOL/L (135-145); TOTAL PROTEIN 7.6 GM/DL (6.4-8.2)
[2019-05-08 05:55] VITALS: BP 114/80
[2019-05-08] MEDS: CYANOCOBALAMIN 1,000 MCG (VITAMIN B-12) TABLET PEG SCH (06:22)
[2019-05-08] MEDS: MULTIVITAMINS LIQUID 15 ML UDC PEG SCH (06:22)
[2019-05-08] MEDS: THIAMINE 100 MG (VITAMIN B-1) TAB PEG SCH (06:23)
[2019-05-08] MEDS: PANTOPRAZOLE 2 MG/ML LIQUID 200 ML (PROTONIX) PEG SCH ×3 (06:26)
--- NOTE | 2019-05-08 06:26 | NUR ---
c/o salo feet pain level 8/10 on numeric scale, Roxicodone 5mg per peg given
--- NOTE | 2019-05-08 07:10 | NUR ---
rates pain level 4/10 on numeric scale, bedside report given to JOSE VALENTINE
--- NOTE | 2019-05-08 08:00 | NUR ---
DENIES PAIN. STATES TOLERATING TUBE FEEDING WELL. LOW RESIDUALS. HERI, SPEECH THERAPIST, OKAYS PATIENT TO HAVE A DAMP SWAB FOR MOUTH LONG THERE IS NO WATER THAT PATIENT CAN SUCK OUT OF IT. HAS ABDOMINAL BINDER ON TO HELP PROTECT FEEDING TUBE.
--- NOTE | 2019-05-08 09:37 | Occupational Ther Daily Note ---
OT Current Status-Daily Note Subjective Pt seen in bed, agreeable to OT tx session. Pt states tingling/ numbness in bilateral feet, does not rate pain. Pt states no pain in any other area. Mental Status/Objective Patient Orientation: Person, Place, Situation, Normal For Age Attachments: PEG Tube ADL-Treatment Therapy Code Descriptions/Definitions Functional [place] Measure: 0=Not Assessed/NA 4=Minimal Assistance 1=Total Assistance 5=Supervision or Setup 2=Maximal Assistance 6=Modified [place] 3=Moderate Assistance 7=Complete IndependenceSCALE: Activities may be completed with or without assistive devices. 0-Kpazfbropl-mtfqluk completes the activity by him/herself with no assistance from a helper. 5-Set-up or Clean-up Assistance-helper sets up or cleans up; patient completes activity. [place] assists only prior to or following the activity. 4-Supervision or Touching Assistance-helper provides verbal cues and/or touching/steadying and/or contact guard assistance as patient completes activity. Assistance may be provided throughout the activity or intermittently. 3-Partial/Moderate Assistance-helper does LESS THAN HALF the effort. [place] lifts, holds or supports trunk or limbs, but provides less than half the effort. 2-Substantial/Maximal Assistance-helper does MORE THAN HALF the effort. [place] l ifts or holds trunk or limbs and provides more than half the effort. 1-Nbeebrfpp-bixyzz does ALL the effort. Patient does none of the effort to complete the activity. Or, the assistance of 2 or more helpers is required for the patient to complete the activity. If activity was not attempted, code reason: 7-Patient Refused. 9-Not Applicable-not attempted and the patient did not perform the activity before the current illness, exacerbation or injury. 10-Not Attempted due to Environmental Limitations-(lack of equipment, weather restraints, etc.). 88-Not Attempted due to Medical Conditions or Safety Concerns. Shower/Bathe Self (QC): 4 (SBA in stance to complete sponge bath. Pt able to reach all areas, SBA in stance to complete pramod/ bottom cleaning. ) Upper Body Dressing (QC): 6 Lower Body Dressing (QC): 4 (SBA in stance to pull past hips) QC: on/off footwear: 6 EOB socks Other Treatment Pt seen in room, states would like to exercise prior to bathing. Pt bed mob IND, sit to stand with FWW with CGA. Pt requires assist with feeding tube mobility. Pt completes 10 minutes of 15-20 [place] arm bike with no rest breaks, states his energy level is "good." Pt completes 15 minutes of standing exercises with 2# weights on each arm, completes reaching in different planes with intermittent CGA for righting center of gravity, completes with one hand on walker. Pt requires 3 rest breaks during standing exercise, states bilateral feet a bit painful. Pt returns to room with CGA while walking. Pt completes sponge bath EOB with good dynamic sitting balance. Pt states he is looking forward to his swallow study and wants to be able to eat before Thanksgiving. Pt educated on OT role and GB symptoms and process of recovery. Pt informed that OT not the expert in the process of swallowing and educated on speech pathology role. Pt states a teacher brought him a Sonic drink and pt denied drink and stated he was not allowed to drink and did not drink. Pt completes UE theraband exercises EOB with minimal cues for positioning and tension. Pt demonstrates competency; energy conservation education reinforced. Pt left in bed, denies sitting up end of session, call light in reach, all needs met. Education OT Patient Education: Correct positioning, Energy conservation, Exercise program, Home exercise program, Modified ADL techniques, Progress toward Goal/Update tx plan, Reviewed precautions, Safety issues Teaching Recipient: Patient Teaching Methods: Demonstration, Handout, Discussion Response to Teaching: Verbalize Understanding, Return Demonstration OT Table Worker Packager Goals Table Worker Packager Goals Time Frame: May 18, 2019 Eating (QC): 6 Oral Hygiene (QC): 6 Toileting Hygiene (QC): 6 Shower/Bathe Self (QC): 6 Upper Body Dressing (QC): 6 (met) Lower Body Dressing (QC): 6 On/Off Footwear (QC): 6 Additional Goals: 1-Demonstrate ADL Tasks, 2-Verbalize Understanding, 3- ImproveStrength/[place] 1=Demonstrate adherence to instructed precautions during ADL tasks. 2=Patient will verbalize/demonstrate understanding of assistive devices/modifications for ADL. 3=Patient will improve strength/tolerance for activity to enable patient to perform ADL's. OT Education/Plan Problem List/Assessment Assessment: Decreased Activ Tolerance, Decreased UE Strength, Impaired Funct Balance, Impaired I ADL's, Impaired Self-Care Skills Discharge Recommendations Plan/Recommendations: Continue POC Equpiment Recommendations-D/C: Rails on Tub/Shower Treatment Plan/Plan of Care Treatment,Training & Education: Yes Patient would benefit from OT for education, treatment and training to promote independence in ADL's, mobility, safety and/or upper extremity function for ADL's. Plan of Care: ADL Retraining, Functional Mobility, Group Exercise/Act as Ind, UE Funct Exercise/Act Treatment Duration: May 18, 2019 Frequency: At least 5 of 7 days/Wk (IRF) Estimated Hrs Per Day: 1.5 hours per day Agreement: Yes Rehab Potential: Good Time/GCodes Start Time: 08:00 Stop Time: 09:30 Total Time Billed (hr/min): 90 Billed Treatment Time 1, EX 3(45), ADL 3(45)= 90 DICKSON AVILES OTR May 08, 2019 09:37 POS
--- NOTE | 2019-05-08 09:37 | PM&R Progress Note ---
Subjective HPI/CC On Admission Date Seen by Provider: May 08, 2019 Time Seen by Provider: 08:15 Subjective/Events-last exam Pt doing better Awaiting another swallow study but that can't be done back to back Residual from the tube feedings is minimal Pain medication helps the chronic leg pain from the nerve pain Getting out of bed and in the chair on his own Bowels are moving Conferred with RN Reviewed therapy notes Reviewed meds and labs Review of Systems General: Fatigue Musculoskeletal: leg pain Neurological: Weakness, Numbness, Incoordination Objective Exam Vital Signs Vital Signs Date Time Temp Pulse Resp B/P (MAP) Pulse Ox O2 Delivery O2 Flow Rate FiO2 05/08/19 17:18 Room Air 05/08/19 15:43 36.6 86 16 137/85 (102) 97 Capillary Refill : Less Than 3 Seconds General Appearance: No Apparent Distress, WD/WN, Chronically ill, Thin HEENT: PERRL/EOMI, Normal ENT Inspection, Pharynx Normal Neck: Full Range of Motion, Normal Inspection, Non Tender, Supple, Carotid Bruit Respiratory: Chest Non Tender, Lungs Clear, Normal Breath Sounds, No Accessory Muscle Use, No Respiratory Distress Cardiovascular: Regular Rate, Rhythm, No Edema, No Gallop, No JVD, No Murmur, Normal Peripheral Pulses Gastrointestinal: Normal Bowel Sounds, No Organomegaly, No Pulsatile Mass, Non Tender, Soft, Other (PEG tube in place) Back: Normal Inspection, No CVA Tenderness, No Vertebral Tenderness Extremity: Normal Capillary Refill, Normal Inspection, Normal Range of Motion, Non Tender, No Calf Tenderness, No Pedal Edema Neurologic/Psychiatric: Alert, Oriented x3, Normal Mood/Affect, bi tri operator II-XII Norm as Tested, Motor Weakness (lower legs 3/5), Sensory Deficit Skin: Normal Color, Warm/Dry Lymphatic: No Adenopathy Results/Procedures Lab Laboratory Tests 05/08/19 04:30 Patient resulted labs reviewed. FIM Transfers Therapy Code Descriptions/Definitions Functional [place] Measure: 0=Not Assessed/NA 4=Minimal Assistance 1=Total Assistance 5=Supervision or Setup 2=Maximal Assistance 6=Modified [place] 3=Moderate Assistance 7=Complete IndependenceSCALE: Activities may be completed with or without assistive devices. 6-Onnzeofgrt-ylsrvoj completes the activity by him/herself with no assistance from a helper. 5-Set-up or Clean-up Assistance-helper sets up or cleans up; patient completes activity. [place] assists only prior to or following the activity. 4-Supervision or Touching Assistance-helper provides verbal cues and/or touching/steadying and/or contact guard assistance as patient completes activity. Assistance may be provided throughout the activity or intermittently. 3-Partial/Moderate Assistance-helper does LESS THAN HALF the effort. [place] lifts, holds or supports trunk or limbs, but provides less than half the effort. 2-Substantial/Maximal Assistance-helper does MORE THAN HALF the effort. [place] lifts or holds trunk or limbs and provides more than half the effort. 3-Hrbxadxdu-wgzqjx does ALL the effort. Patient does none of the effort to complete the activity. Or, the assistance of 2 or more helpers is required for the patient to complete the activity. If activity was not attempted, code reason: 7-Patient Refused. 9-Not Applicable-not attempted and the patient did not perform the activity before the current illness, exacerbation or injury. 10-Not Attempted due to Environmental Limitations-(lack of equipment, weather restraints, etc.). 88-Not Attempted due to Medical Conditions or Safety Concerns. Roll Left to Right (QC): 6 Sit to Lying (QC): 4 (SBA) Sit to Stand (QC): 4 Chair/Qek-nf-Gvvht Xfer(QC): 4 Car Transfer (QC): 3 Gait Training Does the Patient Walk?: Yes Distance: 155 x2 Walk 10 feet (QC): 4 Walk 50 ft with 2 Turns(QC): 4 Walk 150 ft (QC): 4 Walking 10ft/uneven surface-QC: 3 Gait Persons Needed: 1 Gait Assistive Device: FWW Wheelchair Training Does the Pt Use a Wheelchair?: No Wheel 50 ft with 2 turns (QC): 9 Wheel 150 ft (QC): 9 Type of Wheelchair: Manual Stair Training #of Steps: 4 1 Step (curb) (QC): 3 4 Steps (QC): 3 12 Steps (QC): 88 Balance Picking up an Object (QC): 88 ADL-Treatment Eating (QC): 88 Oral Hygiene (QC): 6 Bathing Location: L Arm, R Arm, L Upper Leg, R Upper Leg, L Lower Leg (including foot), R Lower Leg (including foot), Chest, Abdomen, Buttocks, Perineal Area Shower/Bathe Self (QC): 4 (SBA in stance to complete sponge bath. Pt able to reach all areas, SBA in stance to complete pramod/ bottom cleaning. 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
[2019-05-08] MEDS: FOLIC ACID 1 MG TAB PEG SCH (09:44)
[2019-05-08] MEDS: SENNA W/DOCUSATE (SENOKOT S) TABLET PO SCH ×2 (09:44→20:50)
[2019-05-08] MEDS: POLYETHYLENE GLYCOL 17 GM (MIRALAX) PACK PO SCH ×2 (09:44→20:50)
--- NOTE | 2019-05-08 10:55 | Physical Therapy Daily Note ---
PT Daily Note-Current Subjective pt in bed pre-tx agrees to therapy. pt denies pain at this time. Appearance pt in bed post-tx with call light, room phone, tray table in reach with all needs met at this time. Mental Status Patient Orientation: Person, Place, Time, Situation Attachments: PEG Tube Transfers SCALE: Activities may be completed with or without assistive devices. 8-Vikzutdumm-lhjcezu completes the activity by him/herself with no assistance from a helper. 5-Set-up or Clean-up Assistance-helper sets up or cleans up; patient completes activity. [place] assists only prior to or following the activity. 4-Supervision or Touching Assistance-helper provides verbal cues and/or touching/steadying and/or contact guard assistance as patient completes activity. Assistance may be provided throughout the activity or intermittently. 3-Partial/Moderate Assistance-helper does LESS THAN HALF the effort. [place] lifts, holds or supports trunk or limbs, but provides less than half the effort. 2-Substantial/Maximal Assistance-helper does MORE THAN HALF the effort. [place] lifts or holds trunk or limbs and provides more than half the effort. 6-Qqjcfnhsu-wljkps does ALL the effort. Patient does none of the effort to complete the activity. Or, the assistance of 2 or more helpers is required for the patient to complete the activity. If activity was not attempted, code reason: 7-Patient Refused. 9-Not Applicable-not attempted and the patient did not perform the activity before the current illness, exacerbation or injury. 10-Not Attempted due to Environmental Limitations-(lack of equipment, weather restraints, etc.). 88-Not Attempted due to Medical Conditions or Safety Concerns. Sit to Lying (QC): 6 Lying to Sitting/Side of Bed(Q: 6 Sit to Stand (QC): 4 (SBA) Gait Training Distance: 300'x2,100' Walk 10 feet (QC): 4 (SBA) Walk 50 ft with 2 Turns(QC): 4 (SBA) Walk 150 ft (QC): 4 (SBA) Gait Assistive Device: FWW pt with normal gait pattern demonstrates increased gait velocity from previous session. Pt continues to have slightly in toed stance. Wheelchair Training Does the Pt Use a Wheelchair?: No Exercises Seated Therapy Exercises: Long arc quads, Hip flexion, Hip abd/add Seated Reps: 20 (10reps 2 sets) Standing: Hip Abduction, Heel/toe raises, Marching, Side steps, Step-ups Standing Reps: 20 (10 reps 2 sets) NuStep Minutes: 10 NuStep Workload: 5 Treatments pt performed bed mobility training, transfer training, skilled ambulation training, functional LE strengthening/endurance training, and education. Assessment Current Status: Good Progress pt continues to gio increased activity without requiring standing breaks. Pt able to perform LE strengthening without having to take any additional breaks this session. Pt's LE fatigue with ambulation this session. PT Short Term Goals Short Term Goals Time Frame: May 12, 2019 Roll Left & Right: 4 Sit to lyin Lying to sitting on side of be: 4 Sit to stand: 4 Chair/nwo-cg-ahvkg transfer: 4 Toilet transfer: 4 Car transfer: 4 Walk 10 feet: 4 Walk 50 feet with two turns: 4 Walk 150 feet: 4 Walking 10ft on uneven surface: 4 1 step (curb): 4 4 steps: 4 PT Skilled Nursing Goals Skilled Nursing Goals PT Skilled Nursing Goals Time Frame: May 25, 2019 Roll Left & Right (QC): 6 Sit to Lying (QC): 6 Lying-Sitting on Side/Bed(QC): 6 Sit to Stand (QC): 6 Chair/Vgb-ab-Qtnot Xfer(QC): 6 Toilet Transfer (QC): 6 Car Transfer (QC): 6 Does the Patient Walk: Yes Walk 10 feet (QC): 6 Walk 50ft with 2 Turns (QC): 6 Walk 150 ft (QC): 6 Walking 10ft on Uneven Surface: 6 1 Step (curb) (QC): 6 4 Steps (QC): 6 12 Steps (QC): 6 Picking up an Object (QC): 4 Does the Pt use WC or Scooter?: No Type: N/A Type: N/A PT Plan Problem List Problem List: Activity Tolerance, Functional Strength, Safety, Balance, Gait, Transfer, Bed Mobility, ROM Treatment/Plan Treatment Plan: Continue Plan of Care Treatment Plan: Bed Mobility, Education, Functional Activity La[place], Functional Strength, Group Therapy, Gait, Safety, Therapeutic Exercise, Transfers Treatment Duration: May 25, 2019 Frequency: Modified Program (IRF) Estimated Hrs Per Day: 1.5 hours per day Patient and/or Family Agrees t: Yes Safety Risks/Education Patient Education: Gait Training, Transfer Techniques, Correct Positioning, Safety Issues Teaching Recipient: Patient Teaching Methods: Demonstration, Discussion Response to Teaching: Return Demonstration, Reinforcement Needed Time/GCodes Time In: 1000 Time Out: 1100 Total Billed Treatment Time: 60 Total Billed Treatment 1 visit GT 20' FA 10' EX 30' FABIOLA POWERS SENIOR PRIVATE CLIENT ADVISOR May 08, 2019 10:55 POS
[2019-05-08] MEDS: ENOXAPARIN 40 MG/0.4 ML (LOVENOX) SYR SC SCH (11:20)
--- NOTE | 2019-05-08 13:00 | NUR ---
HAS BEEN UNHAPPY WITH NPO STATUS. SCHEDULED TO HAVE A MODIFIED BARIUM SWALLOW AT 1430 TOMORROW. Addendum: 05/08/19 at 1650 by ANJANA FRAIRE RN BARIUM SWALLOW TIME HAS BEEN CHANGED TO 1245 TOMORROW.
--- NOTE | 2019-05-08 14:30 | Physical Therapy Daily Note ---
PT Daily Note-Current Subjective pt in bed pre-tx agrees to therapy reporting 8/10 pain in his B/L feet as pins and needles. Appearance pt sitting EOB post-tx with call light, room phone, tray table in reach with all needs met at this time. Pt reports pain in his feet has moved more distal, and he is having pain in his abdomen which he says he was told was a pulled muscle. will speak with RN. Mental Status Patient Orientation: Person, Place, Time, Situation Attachments: PEG Tube Transfers SCALE: Activities may be completed with or without assistive devices. 3-Sbrifzmhss-aaqepzi completes the activity by him/herself with no assistance from a helper. 5-Set-up or Clean-up Assistance-helper sets up or cleans up; patient completes activity. [place] assists only prior to or following the activity. 4-Supervision or Touching Assistance-helper provides verbal cues and/or touching/steadying and/or contact guard assistance as patient completes activity. Assistance may be provided throughout the activity or intermittently. 3-Partial/Moderate Assistance-helper does LESS THAN HALF the effort. [place] lifts, holds or supports trunk or limbs, but provides less than half the effort. 2-Substantial/Maximal Assistance-helper does MORE THAN HALF the effort. [place] lifts or holds trunk or limbs and provides more than half the effort. 8-Eanbyddwu-ydebhq does ALL the effort. Patient does none of the effort to complete the activity. Or, the assistance of 2 or more helpers is required for the patient to complete the activity. If activity was not attempted, code reason: 7-Patient Refused. 9-Not Applicable-not attempted and the patient did not perform the activity before the current illness, exacerbation or injury. 10-Not Attempted due to Environmental Limitations-(lack of equipment, weather restraints, etc.). 88-Not Attempted due to Medical Conditions or Safety Concerns. Lying to Sitting/Side of Bed(Q: 3 (modA) Sit to Stand (QC): 4 (SBA) pt is indep supine to sit from his room bed with head elevated. Pt requires modA for supine to sit from flat surface in gym. Gait Training Does the Patient Walk?: Yes Distance: 600',100' Walk 10 feet (QC): 4 (SBA) Walk 50 ft with 2 Turns(QC): 4 (SBA) Walk 150 ft (QC): 4 (SBA) Gait Assistive Device: FWW pt demonstrates slight L foot drag on swing phase that pt is able to correct with cuing. Wheelchair Training Does the Pt Use a Wheelchair?: No Exercises Supine Ex: Ankle pumps, Quad Set, Heel Slides, Short Arc Quads (only 1 set. causing pain in abd), Straight leg raise, Hip abd/add Supine Reps: 30 (15reps 2 sets) Treatments pt performed transfer training, bed mobility training, skilled ambulation training, functional LE strengthening exercises, and education. Assessment Current Status: Good Progress pt reports abdominal pain and has difficulty with supine <-> sit from the flat gym mat requiring modA. pt fatigued following structured therapy and states that he just wants to sit and relax before he lays down in bed. pt reports he is having less N/T in his B/L feet following this session. PT Short Term Goals Short Term Goals Time Frame: May 12, 2019 Roll Left & Right: 4 Sit to lyin Lying to sitting on side of be: 4 Sit to stand: 4 Chair/nsp-pf-fbmfx transfer: 4 Toilet transfer: 4 Car transfer: 4 Walk 10 feet: 4 Walk 50 feet with two turns: 4 Walk 150 feet: 4 Walking 10ft on uneven surface: 4 1 step (curb): 4 4 steps: 4 PT [facility] Goals [facility] Goals PT Trust Mail Clerk Goals Time Frame: May 25, 2019 Roll Left & Right (QC): 6 Sit to Lying (QC): 6 Lying-Sitting on Side/Bed(QC): 6 Sit to Stand (QC): 6 Chair/Umk-pa-Sphej Xfer(QC): 6 Toilet Transfer (QC): 6 Car Transfer (QC): 6 Does the Patient Walk: Yes Walk 10 feet (QC): 6 Walk 50ft with 2 Turns (QC): 6 Walk 150 ft (QC): 6 Walking 10ft on Uneven Surface: 6 1 Step (curb) (QC): 6 4 Steps (QC): 6 12 Steps (QC): 6 Picking up an Object (QC): 4 Does the Pt use WC or Scooter?: No Type: N/A Type: N/A PT Plan Problem List Problem List: Activity Tolerance, Functional Strength, Safety, Balance, Gait, Transfer, Bed Mobility, ROM Treatment/Plan Treatment Plan: Continue Plan of Care Treatment Plan: Bed Mobility, Education, Functional Activity [place], Functional Strength, Group Therapy, Gait, Safety, Therapeutic Exercise, Transfers Treatment Duration: May 25, 2019 Frequency: Modified Program (IRF) Estimated Hrs Per Day: 1.5 hours per day Patient and/or Family Agrees t: Yes Safety Risks/Education Patient Education: Gait Training, Transfer Techniques, Correct Positioning, Safety Issues Teaching Recipient: Patient Teaching Methods: Demonstration, Discussion Response to Teaching: Return Demonstration, Reinforcement Needed Time/GCodes Time In: 1300 Time Out: 1330 Total Billed Treatment Time: 30 Total Billed Treatment 1 visit FA 15' GT 15' FABIOLA POWERS VETERANS' COUNSELOR May 08, 2019 14:30 POS
[2019-05-08 15:43] VITALS: BP 137/85
--- NOTE | 2019-05-08 19:04 | NUR ---
bedside report received from JOSE VALENTINE, assume care of pt
--- NOTE | 2019-05-08 19:38 | NUR ---
c/o pain to salo toes, pain level 9/10 on numeric scale, Roxicodone 5mg per G-TUBE given
--- NOTE | 2019-05-08 20:30 | NUR ---
resting quietly in bed, pain level 0/10 of flacc scale
[2019-05-08] MEDS: MELATONIN 3 MG TABLET PEG SCH (20:43)
[2019-05-08] MEDS: AMITRIPTYLINE 25 MG (ELAVIL) TAB PO SCH (20:43)
--- NOTE | 2019-05-08 20:43 | NUR ---
pt refused miralax & Ekta
[2019-05-09] MEDS: oxyCODONE 5 MG/5 ML ORAL SOLN (roxiCODONE) 5 ML UDC PEG PRN ×3 (01:59→11:56)
--- NOTE | 2019-05-09 01:59 | NUR ---
c/o pain in feet level 9/10 on numeric scale, Roxicodone 5mg per G-TUBE given
--- NOTE | 2019-05-09 02:35 | NUR ---
resting quietly in bed, pain level 0/10 on flacc scale
[2019-05-09 06:03] VITALS: BP 128/73
[2019-05-09] MEDS: PANTOPRAZOLE 2 MG/ML LIQUID 200 ML (PROTONIX) PEG SCH ×3 (06:53)
[2019-05-09] MEDS: CYANOCOBALAMIN 1,000 MCG (VITAMIN B-12) TABLET PEG SCH (06:53)
[2019-05-09] MEDS: MULTIVITAMINS LIQUID 15 ML UDC PEG SCH (06:53)
--- NOTE | 2019-05-09 06:53 | NUR ---
c/o salo foot pain level 9/10 on numeric scale, Roxicodone 5mg per G-TUBE given
[2019-05-09] MEDS: THIAMINE 100 MG (VITAMIN B-1) TAB PEG SCH (06:54)
--- NOTE | 2019-05-09 07:40 | NUR ---
bedside report given to CHARANJIT VALENTINE
--- NOTE | 2019-05-09 08:58 | Occupational Ther Daily Note ---
OT Current Status-Daily Note Subjective Pt alert, sitting EOB. Pt agrees to therapy. C/o tingling in B feet. Mental Status/Objective Patient Orientation: Person, Place, Time, Situation Attachments: PEG Tube ADL-Treatment Pt agrees to shower after exercises. Pt able to use urinal then assist to empty. Pt ambulates using FWW into bathroom with SBA. Transfers into shower with SBA using FWW and shower bench. Pt doffs/dons lower body clothing by self with SBA. Dons upper body clothing by self after setup. Pt dons/doff footwear by self. Pt completes shower with SBA using shower bench, hand held shower and grabbars. Using w/c, pt positions self at sink and completes own oral care. Therapy Code Descriptions/Definitions Functional [place] Measure: 0=Not Assessed/NA 4=Minimal Assistance 1=Total Assistance 5=Supervision or Setup 2=Maximal Assistance 6=Modified [place] 3=Moderate Assistance 7=Complete IndependenceSCALE: Activities may be completed with or without assistive devices. 6-Vreaepnbia-ycybjfg completes the activity by him/herself with no assistance from a helper. 5-Set-up or Clean-up Assistance-helper sets up or cleans up; patient completes activity. [place] assists only prior to or following the activity. 4-Supervision or Touching Assistance-helper provides verbal cues and/or touc sebastián/steadying and/or contact guard assistance as patient completes activity. Assistance may be provided throughout the activity or intermittently. 3-Partial/Moderate Assistance-helper does LESS THAN HALF the effort. [place] lifts, holds or supports trunk or limbs, but provides less than half the effort. 2-Substantial/Maximal Assistance-helper does MORE THAN HALF the effort. [place] lifts or holds trunk or limbs and provides more than half the effort. 8-Tpzywigui-edvuty does ALL the effort. Patient does none of the effort to complete the activity. Or, the assistance of 2 or more helpers is required for the patient to complete the activity. If activity was not attempted, code reason: 7-Patient Refused. 9-Not Applicable-not attempted and the patient did not perform the activity before the current illness, exacerbation or injury. 10-Not Attempted due to Environmental Limitations-(lack of equipment, weather restraints, etc.). 88-Not Attempted due to Medical Conditions or Safety Concerns. Eating (QC): 88 Oral Hygiene (QC): 6 Bathing Location: L Arm, R Arm, L Upper Leg, R Upper Leg, L Lower Leg (including foot), R Lower Leg (including foot), Chest, Abdomen, Buttocks, Perineal Area Shower/Bathe Self (QC): 4 Upper Body Dressing (QC): 5 Lower Body Dressing (QC): 4 (Footwear (QC) 6) Toileting Hygiene (QC): 5 (using urinal) Other Treatment Pt ambulated to therapy gym using FWW, close SBA. Completed B UE gross motor and fine motor exercises to increase overall strength and dexterity for daily functional tasks. Arm bike duration 15 min 25-30 mosqu[place] resistance, no breaks. Resistive clothes pins, each hand. Medium resistance theraputty finding small beads then in-hand manipulation tasks with small beads. Nut/bolt task with resistance completed. Heavy resistance therapy sponge given for use in room to increase pinch/postal carrier strength. After therapy, pt lying in bed with call light/phone in reach. All needs met in room. OT Correction Goals Correction Goals Time Frame: May 18, 2019 Eating (QC): 6 Oral Hygiene (QC): 6 Toileting Hygiene (QC): 6 Shower/Bathe Self (QC): 6 Upper Body Dressing (QC): 6 (met) Lower Body Dressing (QC): 6 On/Off Footwear (QC): 6 Additional Goals: 1-Demonstrate ADL Tasks, 2-Verbalize Understanding, 3- ImproveStrength/[place] 1=Demonstrate adherence to instructed precautions during ADL tasks. 2=Patient will verbalize/demonstrate understanding of assistive devices/ modifications for ADL. 3=Patient will improve strength/tolerance for activity to enable patient to perform ADL's. OT Education/Plan Problem List/Assessment Assessment: Decreased UE Strength, Impaired Coordination, Impaired Funct Balance, Impaired Self-Care Skills Discharge Recommendations Plan/Recommendations: Continue POC Treatment Plan/Plan of Care Patient would benefit from OT for education, treatment and training to promote independence in ADL's, mobility, safety and/or upper extremity function for ADL's. Plan of Care: ADL Retraining, Functional Mobility, Group Exercise/Act as Ind, UE Funct Exercise/Act Treatment Duration: May 18, 2019 Frequency: At least 5 of 7 days/Wk (IRF) Estimated Hrs Per Day: 1.5 hours per day Agreement: Yes Rehab Potential: Good Time/GCodes Start Time: 07:30 Stop Time: 09:00 Total Time Billed (hr/min): 90 Billed Treatment Time 1 visit-ADL 4 (60 min) EX 2 (30 min) ELIZA AHN May 09, 2019 08:58 POS
--- NOTE | 2019-05-09 09:44 | PM&R Progress Note ---
Subjective HPI/CC On Admission Date Seen by Provider: May 09, 2019 Time Seen by Provider: 08:30 Subjective/Events-last exam Pt doing better Awaiting another swallow study today with modified barium swallow Residual from the tube feedings is minimal Pain medication helps the chronic leg pain from the nerve pain but he feels like that is getting better by the day Getting out of bed and in the chair on his own Bowels are moving Conferred with RN Reviewed therapy notes Reviewed meds and labs Review of Systems HEENT: Dysphasia Musculoskeletal: leg pain Objective Exam Vital Signs Vital Signs Date Time Temp Pulse Resp B/P (MAP) Pulse Ox O2 Delivery O2 Flow Rate FiO2 05/09/19 09:02 36.7 05/09/19 06:03 81 18 128/73 (91) 91 Room Air Capillary Refill : Less Than 3 Seconds General Appearance: No Apparent Distress, WD/WN, Chronically ill, Thin HEENT: PERRL/EOMI, Normal ENT Inspection, Pharynx Normal Neck: Full Range of Motion, Normal Inspection, Non Tender, Supple, Carotid Bruit Respiratory: Chest Non Tender, Lungs Clear, Normal Breath Sounds, No Accessory Muscle Use, No Respiratory Distress Cardiovascular: Regular Rate, Rhythm, No Edema, No Gallop, No JVD, No Murmur, Normal Peripheral Pulses Gastrointestinal: Normal Bowel Sounds, No Organomegaly, No Pulsatile Mass, Non Tender, Soft, Other (PEG tube in place) Back: Normal Inspection, No CVA Tenderness, No Vertebral Tenderness Extremity: Normal Capillary Refill, Normal Inspection, Normal Range of Motion, Non Tender, No Calf Tenderness, No Pedal Edema Neurologic/Psychiatric: Alert, Oriented x3, Normal Mood/Affect, 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 FIM Transfers Therapy Code Descriptions/Definitions Functional [place] Measure: 0=Not Assessed/NA 4=Minimal Assistance 1=Total Assistance 5=Supervision or Setup 2=Maximal Assistance 6=Modified [place] 3=Moderate Assistance 7=Complete IndependenceSCALE: Activities may be completed with or without assistive devices. 7-Neoliqkukk-rmhiunw completes the activity by him/herself with no assistance from a helper. 5-Set-up or Clean-up Assistance-helper sets up or cleans up; patient completes activity. [place] assists only prior to or following the activity. 4-Supervision or Touching Assistance-helper provides verbal cues and/or touching/steadying and/or contact guard assistance as patient completes activity. Assistance may be provided throughout the activity or intermittently. 3-Partial/Moderate Assistance-helper does LESS THAN HALF the effort. [place] lifts, holds or supports trunk or limbs, but provides less than half the effort. 2-Substantial/Maximal Assistance-helper does MORE THAN HALF the effort. [place] lifts or holds trunk or limbs and provides more than half the effort. 7-Byvaulybl-dgfgwn does ALL the effort. Patient does none of the effort to complete the activity. Or, the assistance of 2 or more helpers is required for the patient to complete the activity. If activity was not attempted, code reason: 7-Patient Refused. 9-Not Applicable-not attempted and the patient did not perform the activity before the current illness, exacerbation or injury. 10-Not Attempted due to Environmental Limitations-(lack of equipment, weather restraints, etc.). 88-Not Attempted due to Medical Conditions or Safety Concerns. Roll Left to Right (QC): 6 Sit to Lying (QC): 6 Sit to Stand (QC): 4 (SBA) Chair/Qvd-wo-Pznuq Xfer(QC): 4 Car Transfer (QC): 3 Gait Training Does the Patient Walk?: Yes Distance: 600',100' Walk 10 feet (QC): 4 (SBA) Walk 50 ft with 2 Turns(QC): 4 (SBA) Walk 150 ft (QC): 4 (SBA) Walking 10ft/uneven surface-QC: 3 Gait Persons Needed: 1 Gait Assistive Device: FWW Wheelchair Training Does the Pt Use a Wheelchair?: No Wheel 50 ft with 2 turns (QC): 9 Wheel 150 ft (QC): 9 Type of Wheelchair: Manual Stair Training #of Steps: 4 1 Step (curb) (QC): 3 4 Steps (QC): 3 12 Steps (QC): 88 Balance Picking up an Object (QC): 88 ADL-Treatment Eating (QC): 88 Oral Hygiene (QC): 6 Bathing Location: L Arm, R Arm, L Upper Leg, R Upper Leg, L Lower Leg (including foot), R Lower Leg (including foot), Chest, Abdomen, Buttocks, Perineal Area Shower/Bathe Self (QC): 4 Upper Body Dressing (QC): 5 Lower Body Dressing (QC): 4 (Footwear (QC) 6) On/Off Footwear (QC): 2 (Max assist to doff/don slipper socks.) Toileting Hygiene (QC): 5 (using urinal) Toilet Transfer (QC): 7 Assessment/Plan Assessment and Plan Assess & Plan/Chief Complaint Assess: Guillain [place] syndrome Leg pain Dysphagia Aspiration risk of saliva strict NPO Former smoker Thin body status Plan: TF Aspiration risk ST IRF protocol Pain medication at night Modified barium swallow today (1) Guillain Tracy syndrome (2) Former smoker (3) History of pneumonia (4) History of respiratory failure (5) S/P percutaneous endoscopic gastrostomy (PEG) tube placement (6) Dysphagia (7) Decubitus ulcer RIANA STORY DO May 09, 2019 09:44 POS
--- NOTE | 2019-05-09 09:53 | NUR ---
Spoke with pt about current TF. Pt states he's tolerating the TF well. Per RN, pt has modified barium swallow evaluation scheduled later today. Would like to recommend switching from continuous to bolus feeds. Recommend the following TF: 1 can TwoCal HN x5 bolus feeds per day (q4h: 0600, 1000, 1400, 1800, 2200). Add 2 packets of Beneprotein per day. Flush with 60 ml H2O before and after bolus feed. Provides 2425 kcal (30 kcal/kg); 112 g Pro (1.4 g Pro/kg); and 1430 ml free water. Would recommend extra fluids as needed for hydration status. Will continue to follow and reassess as pt needs and status change. Tiffanie Queen, MS, RD, LD
[2019-05-09] MEDS: FOLIC ACID 1 MG TAB PEG SCH (09:54)
[2019-05-09] MEDS: ENOXAPARIN 40 MG/0.4 ML (LOVENOX) SYR SC SCH (10:29)
--- NOTE | 2019-05-09 10:52 | Physical Therapy Daily Note ---
PT Daily Note-Current Subjective Patient in bed pre tx, agrees to PT, has no complaints of pain but states that he has numbness in toes bilaterally. Appearance Patient in bed post tx with nurse call, phone, tray, all needs met. Mental Status Patient Orientation: Normal For Age Attachments: PEG Tube Transfers SCALE: Activities may be completed with or without assistive devices. 6-Zrmimipzbm-dgsvvkp completes the activity by him/herself with no assistance from a helper. 5-Set-up or Clean-up Assistance-helper sets up or cleans up; patient completes activity. [place] assists only prior to or following the activity. 4-Supervision or Touching Assistance-helper provides verbal cues and/or touching/steadying and/or contact guard assistance as patient completes activity. Assistance may be provided throughout the activity or intermittently. 3-Partial/Moderate Assistance-helper does LESS THAN HALF the effort. [place] lifts, holds or supports trunk or limbs, but provides less than half the effort. 2-Substantial/Maximal Assistance-helper does MORE THAN HALF the effort. [place] lifts or holds trunk or limbs and provides more than half the effort. 7-Prmvpyzhq-gstoap does ALL the effort. Patient does none of the effort to complete the activity. Or, the assistance of 2 or more helpers is required for the patient to complete the activity. If activity was not attempted, code reason: 7-Patient Refused. 9-Not Applicable-not attempted and the patient did not perform the activity before the current illness, exacerbation or injury. 10-Not Attempted due to Environmental Limitations-(lack of equipment, weather restraints, etc.). 88-Not Attempted due to Medical Conditions or Safety Concerns. Roll Left & Right (QC): 6 Sit to Lying (QC): 6 Lying to Sitting/Side of Bed(Q: 6 Sit to Stand (QC): 4 Chair/Zpi-ir-Dkhqx Xfer(QC): 4 SBA for sit <-> stand and transfers, good use of hand placement and safety. Gait Training Distance: 800', 100' Walk 10 feet (QC): 4 Walk 50 ft with 2 Turns(QC): 4 Walk 150 ft (QC): 4 Gait Persons Needed: 1 Gait Assistive Device: FWW SBA, slow but steady ambulation, some weight bearing through arms, no knee buckling Exercises Standing: Hamstring curls, Heel/toe raises, 3 way Ex=Flex, Abd, Ext, Marching, Mini squats Standing Reps: 15 LAQ alternating with 2# ankle weights for 5 min NuStep Minutes: 15 NuStep Workload: 5 Treatments bed mobility and transfers, ambulation, LE strengthening Assessment Current Status: Fair Progress improving endurance and LE strength PT Short Term Goals Short Term Goals Time Frame: May 12, 2019 Roll Left & Right: 4 Sit to lyin Lying to sitting on side of be: 4 Sit to stand: 4 Chair/nwl-nd-uqdai transfer: 4 Toilet transfer: 4 Car transfer: 4 Walk 10 feet: 4 Walk 50 feet with two turns: 4 Walk 150 feet: 4 Walking 10ft on uneven surface: 4 1 step (curb): 4 4 steps: 4 PT Visual Education Director Goals Intermediate Goals PT Intermediate Goals Time Frame: May 25, 2019 Roll Left & Right (QC): 6 Sit to Lying (QC): 6 Lying-Sitting on Side/Bed(QC): 6 Sit to Stand (QC): 6 Chair/Eof-tr-Xfnsz Xfer(QC): 6 Toilet Transfer (QC): 6 Car Transfer (QC): 6 Does the Patient Walk: Yes Walk 10 feet (QC): 6 Walk 50ft with 2 Turns (QC): 6 Walk 150 ft (QC): 6 Walking 10ft on Uneven Surface: 6 1 Step (curb) (QC): 6 4 Steps (QC): 6 12 Steps (QC): 6 Picking up an Object (QC): 4 Does the Pt use WC or Scooter?: No Type: N/A Type: N/A PT Plan Problem List Problem List: Activity Tolerance, Functional Strength, Safety, Balance, Gait, Transfer Treatment/Plan Treatment Plan: Continue Plan of Care Treatment Plan: Bed Mobility, Education, Functional Activity [place], Functional Strength, Group Therapy, Gait, Safety, Therapeutic Exercise, Transfers Treatment Duration: May 25, 2019 Frequency: Modified Program (IRF) Estimated Hrs Per Day: 1.5 hours per day Patient and/or Family Agrees t: Yes Safety Risks/Education Patient Education: Gait Training, Transfer Techniques, Correct Positioning, Safety Issues Teaching Recipient: Patient Teaching Methods: Demonstration, Discussion Response to Teaching: Reinforcement Needed Time/GCodes Time In: 1000 Time Out: 1100 Total Billed Treatment Time: 60 Total Billed Treatment 1 visit GT 15' FA 10' EX 35' KRTEK,VAIBHAV PT May 09, 2019 10:51 POS
[2019-05-09] MEDS: POLYETHYLENE GLYCOL 17 GM (MIRALAX) PACK PO SCH ×2 (12:03→21:02)
[2019-05-09] MEDS: SENNA W/DOCUSATE (SENOKOT S) TABLET PO SCH ×2 (12:04→21:01)
--- NOTE | 2019-05-09 13:04 | NUR ---
Speech Therapy states that pt can have nectar thickened liquids, but no food. Continue TF as ordered.
--- NOTE | 2019-05-09 13:11 | ST Mod Barium Swallow ---
Speech Evaluation-General Medical Diagnosis Gullain-barre Syndrome Onset Date: May 04, 2019 Therapy Diagnosis Therapy Diagnosis: Oropharyngeal Dysphagia Precautions Precautions: Aspiration Precautions/Isolations: Aspiration Referral Referring Physician: Dr. Ackerman Reason for Referral: Evaluation/Treatment Medical History Pertinent Medical History: CABG Reviewed History: Yes Social History Home: Single Level Current Living Status: Children (his son lives with him) Speech Mod Barium Swallow Prior Level of Function Patient was able to eat/drink anything prior to the onset of Gullian-Green[place] Syndrome. His initial MBS results indicated penetration/aspiration of all consistencies. PEG placed 04/26/19. Oral Motor Skills Dentition Natural Dentures: Full Lingual Protrusion: Normal Lingual ROM: Normal Lingual Strength: Normal Velum: Normal Textures-Lateral View Lateral View Food Presentation: Thin Liquid via Spoon, Thin Liquid via Straw, Ozone Liquid via Spoon, Honey Liquid via Spoon, Pureed Solids Oral Phase Labial Closure: No Impairment (WFL) Bolus Formation Pooling L/R: No Impairment (WFL) Bolus Formation Placement: No Impairment (WFL) Mastication Rotary Chew: No Impairment (WFL) A/P Lingual Propulsion: No Impairment (WFL) Lingual Movement: No Impairment (WFL) Patient exhibited normal function for all oral intake. Oral Phase Residue: No Impairment (WFL) Pharyngeal Phase Swallow Response: No Impairment (WFL) Base of Tongue: No Impairment (WFL) Laryngeal Elevation: Minimal Impairment Vallecular Residue: Mild Pharyngeal Wall Residue: Mild Laryngeal Penetration: Moderate Aspiration Observations: None Other Pharyngeal Observations: Penetration noted with thin as well as puree. Performed-A/P View Not Applicable/Performed Summary/Impressions Patient is a 53 year old male who was admitted to the ARU due to Guillian-Green[place] Syndrome. Patient has been on a PEG due penetration/aspiration since 04/26/19. Patient's MBS this date indicated normal oral function for all consistencies presented. The patient was noted to exhibit penetration of thin liquids as well as puree at the pharyngeal phase. The patient will be placed on nectar consistency for all liquids. NO FOOD at this time. Patient is anticipated to continue progress as he recovers overall. Speech Short Term Goals Short Term Goals Short Term Goals 1) The patient will tolerate least restrictive diet level without s/s of aspiration at 90% or greater. 2) The patient will utilize compensatory strategies as trained for safety of oral intake given minimal cues at 90% or greater. 3) The patient will progress to oral intake for nutrition/hydration without PEG intake at 90% or greater. Speech Market Research Intern Goals Market Research Intern Goals Patient will maintain adequate nutrition/hydration via oral and/or PEG. Speech-Plan Patient/Family Goals Patient/Family Goals: Patient plans on returning home with family upon rehab discharge. Treatment Plan Speech Therapy Treatment Plan: Continue Plan of Care Patient will receive skilled ST for safety of oral intake education and co mpensatory strategies training. Treatment Duration: May 12, 2019 Frequency: 4 times per week Estimated Hrs Per Day: .5 hour per day Rehab Potential: Good Barriers to Learning: Patient is inpatient and ready to eat/drink as he did prior to the onset of Guillian-Greenview Syndrome. Pt/Family Agrees to Plan: Yes Safety Risks/Education Teaching Recipient: Patient Teaching Methods: Demonstration Response to Teaching: Verbalize Understanding, Return Demonstration Education Topics Provided: Safety of oral intake and diet level. Time Speech Therapy Time In: 12:30 Speech Therapy Time Out: 13:00 Total Billed Time: 30 Billed Treatment Time 1, MOD No CANDE HAMILTON May 09, 2019 13:11 POS
--- NOTE | 2019-05-09 13:12 | Diagnostic Imaging Report ---
Modified barium swallow. Indication: Difficult swallowing There are no prior studies available for comparison. The study was performed in the presence of a speech pathologist, Viry. The patient was given honey and nectar consistency to swallow. He is able to do this without difficulty. However with the thin barium there was penetration. There was also penetration with the applesauce impregnated barium. The exam was subsequently terminated. Impression: The swallowing mechanism is compromised as there was penetration with thin and applesauce consistency barium. Dictated by: Dictated on workstation # [id number]
--- NOTE | 2019-05-09 14:45 | Physical Therapy Daily Note ---
PT Daily Note-Current Subjective pt sitting EOB agrees to therapy. pt reports unrated pain in just his toes at this time. Appearance pt sitting EOB post-tx with call light, room phone, tray table in reach and all needs met at this time. Mental Status Patient Orientation: Person, Place, Time, Situation Attachments: PEG Tube Transfers SCALE: Activities may be completed with or without assistive devices. 4-Mhilpnjibc-cfeqamk completes the activity by him/herself with no assistance from a helper. 5-Set-up or Clean-up Assistance-helper sets up or cleans up; patient completes activity. [place] assists only prior to or following the activity. 4-Supervision or Touching Assistance-helper provides verbal cues and/or touching/steadying and/or contact guard assistance as patient completes activity. Assistance may be provided throughout the activity or intermittently. 3-Partial/Moderate Assistance-helper does LESS THAN HALF the effort. [place] lifts, holds or supports trunk or limbs, but provides less than half the effort. 2-Substantial/Maximal Assistance-helper does MORE THAN HALF the effort. [place] lifts or holds trunk or limbs and provides more than half the effort. 4-Srnvkrklv-oefgzv does ALL the effort. Patient does none of the effort to co mplete the activity. Or, the assistance of 2 or more helpers is required for the patient to complete the activity. If activity was not attempted, code reason: 7-Patient Refused. 9-Not Applicable-not attempted and the patient did not perform the activity before the current illness, exacerbation or injury. 10-Not Attempted due to Environmental Limitations-(lack of equipment, weather restraints, etc.). 88-Not Attempted due to Medical Conditions or Safety Concerns. Sit to Stand (QC): 6 Gait Training Distance: 900',600' Walk 10 feet (QC): 4 (SBA) Walk 50 ft with 2 Turns(QC): 4 (SBA) Walk 150 ft (QC): 4 (SBA) Gait Assistive Device: FWW pt has increased gait speed this session and reports only mild SOB after ambulation. Wheelchair Training Does the Pt Use a Wheelchair?: No Treatments pt performed transfer training, skilled ambulation training, and education Assessment Current Status: Good Progress pt gio increased ambulation distance with decreased fatigue reported. Pt reports decreased pain in abdomen from yesterday and is motivated to work today. PT Short Term Goals Short Term Goals Time Frame: May 12, 2019 Roll Left & Right: 4 Sit to lyin Lying to sitting on side of be: 4 Sit to stand: 4 Chair/hex-cd-okhdx transfer: 4 Toilet transfer: 4 Car transfer: 4 Walk 10 feet: 4 Walk 50 feet with two turns: 4 Walk 150 feet: 4 Walking 10ft on uneven surface: 4 1 step (curb): 4 4 steps: 4 PT Chcf Goals Valve Machine Operator Goals PT Chcf Goals Time Frame: May 25, 2019 Roll Left & Right (QC): 6 Sit to Lying (QC): 6 Lying-Sitting on Side/Bed(QC): 6 Sit to Stand (QC): 6 Chair/Jqz-tk-Czrec Xfer(QC): 6 Toilet Transfer (QC): 6 Car Transfer (QC): 6 Does the Patient Walk: Yes Walk 10 feet (QC): 6 Walk 50ft with 2 Turns (QC): 6 Walk 150 ft (QC): 6 Walking 10ft on Uneven Surface: 6 1 Step (curb) (QC): 6 4 Steps (QC): 6 12 Steps (QC): 6 Picking up an Object (QC): 4 Does the Pt use WC or Scooter?: No Type: N/A Type: N/A PT Plan Problem List Problem List: Activity Tolerance, Functional Strength, Safety, Balance, Gait, Transfer, Bed Mobility, ROM Treatment/Plan Treatment Plan: Continue Plan of Care Treatment Plan: Bed Mobility, Education, Functional Activity [place], Functional Strength, Group Therapy, Gait, Safety, Therapeutic Exercise, Transfers Treatment Duration: May 25, 2019 Frequency: Modified Program (IRF) Estimated Hrs Per Day: 1.5 hours per day Patient and/or Family Agrees t: Yes Safety Risks/Education Patient Education: Gait Training, Transfer Techniques, Correct Positioning, Safety Issues Teaching Recipient: Patient Teaching Methods: Demonstration, Discussion Response to Teaching: Return Demonstration, Reinforcement Needed Time/GCodes Time In: 1345 Time Out: 1400 Total Billed Treatment Time: 15 Total Billed Treatment 1 visit GT 15' MARYVAIBHAV AKERS PT May 09, 2019 14:44 POS
[2019-05-09 15:44] VITALS: BP 133/79
[2019-05-09] MEDS: GABAPENTIN 400 MG (NEURONTIN) CAP PEG PRN (16:07)
[2019-05-09 18:00] VITALS: BP 133/79
[2019-05-09] MEDS: HYDROcodone/APAP 5 MG/325 MG (LORTAB) TAB PO PRN (21:02)
[2019-05-09] MEDS: AMITRIPTYLINE 25 MG (ELAVIL) TAB PO SCH (21:02)
[2019-05-09] MEDS: MELATONIN 3 MG TABLET PEG SCH (21:02)
[2019-05-10 05:37] VITALS: BP 147/86
[2019-05-10] MEDS: MULTIVITAMINS LIQUID 15 ML UDC PEG SCH (06:14)
[2019-05-10] MEDS: CYANOCOBALAMIN 1,000 MCG (VITAMIN B-12) TABLET PEG SCH (06:14)
[2019-05-10] MEDS: PANTOPRAZOLE 2 MG/ML LIQUID 200 ML (PROTONIX) PEG SCH ×3 (06:14)
[2019-05-10] MEDS: THIAMINE 100 MG (VITAMIN B-1) TAB PEG SCH (06:14)
--- NOTE | 2019-05-10 08:37 | PM&R Progress Note ---
Subjective HPI/CC On Admission Date Seen by Provider: May 10, 2019 Time Seen by Provider: 08:45 Subjective/Events-last exam Pt doing very well Speech therapy allowed him to advance to [place] thickened liquid and he was thrilled about that No food allowed yet Coccyx pressure ulcer doing very well Had a BM two days ago Pain is well controlled on the Gabapentin Conferred with RN Reviewed therapy notes Reviewed meds and labs Review of Systems General: Fatigue Musculoskeletal: leg pain Neurological: Weakness, Numbness, Incoordination Objective Exam Vital Signs Vital Signs Date Time Temp Pulse Resp B/P (MAP) Pulse Ox O2 Delivery O2 Flow Rate FiO2 05/10/19 18:10 37.1 77 14 155/82 (106) 96 Room Air Capillary Refill : Less Than 3 Seconds General Appearance: No Apparent Distress, WD/WN, Chronically ill, Thin HEENT: PERRL/EOMI, Normal ENT Inspection, Pharynx Normal Neck: Full Range of Motion, Normal Inspection, Non Tender, Supple, Carotid Bruit Respiratory: Chest Non Tender, Lungs Clear, Normal Breath Sounds, No Accessory Muscle Use, No Respiratory Distress Cardiovascular: Regular Rate, Rhythm, No Edema, No Gallop, No JVD, No Murmur, Normal Peripheral Pulses Gastrointestinal: Normal Bowel Sounds, No Organomegaly, No Pulsatile Mass, Non Tender, Soft, Other (PEG tube in place) Back: Normal Inspection, No CVA Tenderness, No Vertebral Tenderness Extremity: Normal Capillary Refill, Normal Inspection, Normal Range of Motion, Non Tender, No Calf Tenderness, No Pedal Edema Neurologic/Psychiatric: Alert, Oriented x3, Normal Mood/Affect, home staging specialist II-XII Norm as Tested, Motor Weakness (lower legs 3/5), Sensory Deficit Skin: Normal Color, Warm/Dry Lymphatic: No Adenopathy Results/Procedures Lab Patient resulted labs reviewed. FIM Transfers Therapy Code Descriptions/Definitions Functional [place] Measure: 0=Not Assessed/NA 4=Minimal Assistance 1=Total Assistance 5=Supervision or Setup 2=Maximal Assistance 6=Modified [place] 3=Moderate Assistance 7=Complete IndependenceSCALE: Activities may be completed with or without assistive devices. 4-Jeezgoqaws-ryazsmi completes the activity by him/herself with no assistance from a helper. 5-Set-up or Clean-up Assistance-helper sets up or cleans up; patient completes activity. [place] assists only prior to or following the activity. 4-Supervision or Touching Assistance-helper provides verbal cues and/or touching/steadying and/or contact guard assistance as patient completes activity. Assistance may be provided throughout the activity or intermittently. 3-Partial/Moderate Assistance-helper does LESS THAN HALF the effort. [place] lifts, holds or supports trunk or limbs, but provides less than half the effort. 2-Substantial/Maximal Assistance-helper does MORE THAN HALF the effort. [place] lifts or holds trunk or limbs and provides more than half the effort. 0-Fpttoqwxt-hmnncv does ALL the effort. Patient does none of the effort to complete the activity. Or, the assistance of 2 or more helpers is required for the patient to complete the activity. If activity was not attempted, code reason: 7-Patient Refused. 9-Not Applicable-not attempted and the patient did not perform the activity before the current illness, exacerbation or injury. 10-Not Attempted due to Environmental Limitations-(lack of equipment, weather restraints, etc.). 88-Not Attempted due to Medical Conditions or Safety Concerns. Roll Left to Right (QC): 6 Sit to Lying (QC): 6 Sit to Stand (QC): 6 Chair/Jmh-yr-Csjuq Xfer(QC): 4 Car Transfer (QC): 3 Gait Training Does the Patient Walk?: Yes Distance: 900',600' Walk 10 feet (QC): 4 (SBA) Walk 50 ft with 2 Turns(QC): 4 (SBA) Walk 150 ft (QC): 4 (SBA) Walking 10ft/uneven surface-QC: 3 Gait Persons Needed: 1 Gait Assistive Device: FWW Wheelchair Training Does the Pt Use a Wheelchair?: No Wheel 50 ft with 2 turns (QC): 9 Wheel 150 ft (QC): 9 Type of Wheelchair: Manual Stair Training #of Steps: 4 1 Step (curb) (QC): 3 4 Steps (QC): 3 12 Steps (QC): 88 Balance Picking up an Object (QC): 88 ADL-Treatment Eating (QC): 88 Oral Hygiene (QC): 6 Bathing Location: L Arm, R Arm, L Upper Leg, R Upper Leg, L Lower Leg (including foot), R Lower Leg (including foot), Chest, Abdomen, Buttocks, Perineal Area Shower/Bathe Self (QC): 4 Upper Body Dressing (QC): 5 Lower Body Dressing (QC): 4 (Footwear (QC) 6) On/Off Footwear (QC): 2 (Max assist to doff/don slipper socks.) Toileting Hygiene (QC): 5 (using urinal) Toilet Transfer (QC): 7 Assessment/Plan Assessment and Plan Assess & Plan/Chief Complaint Assess: Guillain [place] syndrome Leg pain Dysphagia Aspiration risk of saliva strict NPO Former smoker Thin body status Plan: TF Aspiration risk ST IRF protocol Pain medication at night [place] thickened liquids Coccyx wound care (1) Guillain Tracy syndrome (2) Former smoker (3) History of pneumonia (4) History of respiratory failure (5) S/P percutaneous endoscopic gastrostomy (PEG) tube placement (6) Dysphagia (7) Decubitus ulcer RIANA STORY DO May 10, 2019 08:37 POS
--- NOTE | 2019-05-10 08:42 | Occupational Ther Daily Note ---
OT Current Status-Daily Note Subjective Pt alert, sitting in w/c. Pt agrees to therapy. No c/o pain at this time. Mental Status/Objective Patient Orientation: Person, Place, Time, Situation Attachments: PEG Tube ADL-Treatment Pt declines shower or changing clothing today. Pt is able to maneuver w/c and IV pole around room and into bathroom to complete own oral care. Pt is able to use urinal and empty using w/c. Therapy Code Descriptions/Definitions Functional [place] Measure: 0=Not Assessed/NA 4=Minimal Assistance 1=Total Assistance 5=Supervision or Setup 2=Maximal Assistance 6=Modified [place] 3=Moderate Assistance 7=Complete IndependenceSCALE: Activities may be completed with or without assistive devices. 8-Daozzgghwb-laqlplr completes the activity by him/herself with no assistance from a helper. 5-Set-up or Clean-up Assistance-helper sets up or cleans up; patient completes activity. [place] assists only prior to or following the activity. 4-Supervision or Touching Assistance-helper provides verbal cues and/or touching/steadying and/or contact guard assistance as patient completes activity. Assistance may be provided throughout the activity or intermittently. 3-Partial/Moderate Assistance-helper does LESS THAN HALF the effort. [place] lifts, holds or supports trunk or limbs, but provides less than half the effort. 2-Substantial/Maximal Assistance-helper does MORE THAN HALF the effort. [place] lifts or holds trunk or limbs and provides more than half the effort. 0-Jerihpadi-ezuhsk does ALL the effort. Patient does none of the effort to complete the activity. Or, the assistance of 2 or more helpers is required for the patient to complete the activity. If activity was not attempted, code reason: 7-Patient Refused. 9-Not Applicable-not attempted and the patient did not perform the activity before the current illness, exacerbation or injury. 10-Not Attempted due to Environmental Limitations-(lack of equipment, weather restraints, etc.). 88-Not Attempted due to Medical Conditions or Safety Concerns. Eating (QC): 88 (Pt is able to drink nectar thick liquids.) Oral Hygiene (QC): 6 Other Treatment Pt ambulated to therapy gym after ambulating around [facility]. Completed UE exercises to increase strength, fine motor coordination and activity tolerance for daily functional tasks. Arm bike completed 15 min at 30 mosquera resistance, without breaks. [place] guido exercises (4) with 6# wts attached, pt required recovery breaks between sets, 3 sets 10 reps each. Completed nut/bolt task in standing to work on dynamic standing. Pt ambulated back to room for recovery break before ambulating to large shower room. Pt able to drink nectar thick coke without difficulty. Pt then ambulated to large shower room for tub/shower transfer. Pt demonstrated ability to complete tub transfer bench transfer with SBA. CGA using FWW and grabbar to step into tub, no LOB. Pt stated that he does not have tub seat, tub transfer bench and grabbar. Pt also states that his son with be there, since he does not have a job, to help. Pt then demonstrated ability to maneuver around kitchen using counter to stabilize self with close SBA. After therapy, pt sitting EOB with call light/phone in reach. All needs met in room. OT Retirement Goals Retirement Goals Time Frame: May 18, 2019 Eating (QC): 6 Oral Hygiene (QC): 6 Toileting Hygiene (QC): 6 Shower/Bathe Self (QC): 6 Upper Body Dressing (QC): 6 (met) Lower Body Dressing (QC): 6 On/Off Footwear (QC): 6 Additional Goals: 1-Demonstrate ADL Tasks, 2-Verbalize Understanding, 3-ImproveStrength/[place] 1=Demonstrate adherence to instructed precautions during ADL tasks. 2=Patient will verbalize/demonstrate understanding of assistive devices/modifications for ADL. 3=Patient will improve strength/tolerance for activity to enable patient to perform ADL's. OT Education/Plan Problem List/Assessment Assessment: Decreased Activ Tolerance, Decreased UE Strength, Impaired Self- Care Skills Discharge Recommendations Plan/Recommendations: Continue POC Treatment Plan/Plan of Care Patient would benefit from OT for education, treatment and training to promote independence in ADL's, mobility, safety and/or upper extremity function for ADL's. Plan of Care: ADL Retraining, Functional Mobility, Group Exercise/Act as Ind, UE Funct Exercise/Act Treatment Duration: May 18, 2019 Frequency: At least 5 of 7 days/Wk (IRF) Estimated Hrs Per Day: 1.5 hours per day Agreement: Yes Rehab Potential: Good Time/GCodes Start Time: 07:00 Stop Time: 08:30 Total Time Billed (hr/min): 90 Billed Treatment Time 1 visit-ADL 1 (15 min) EX 3 (50 min) FA 2 (25 min) ELIZA AHN May 10, 2019 08:42 POS
[2019-05-10] MEDS: FOLIC ACID 1 MG TAB PEG SCH (09:11)
[2019-05-10] MEDS: ENOXAPARIN 40 MG/0.4 ML (LOVENOX) SYR SC SCH (09:11)
[2019-05-10] MEDS: GABAPENTIN 400 MG (NEURONTIN) CAP PEG PRN ×2 (09:11→18:14)
[2019-05-10] MEDS: POLYETHYLENE GLYCOL 17 GM (MIRALAX) PACK PO SCH ×2 (09:14→21:12)
[2019-05-10] MEDS: SENNA W/DOCUSATE (SENOKOT S) TABLET PO SCH ×2 (09:14→21:12)
--- NOTE | 2019-05-10 10:42 | Speech Therapy Daily Note ---
Speech Daily Progress Note Subjective Date Seen by Provider: May 10, 2019 Time Seen by Provider: 00:30 Patient was sitting up in bed drinking his thickened "soda" without difficulty. Objective Patient utilizing compensatory strategies at 90% with minimal cuing. Assessment Assessment Current Status: Good Progress Speech Short Term Goals Short Term Goals Short Term Goals 1) The patient will tolerate least restrictive diet level without s/s of aspiration at 90% or greater. 2) The patient will utilize compensatory strategies as trained for safety of oral intake given minimal cues at 90% or greater. 3) The patient will progress to oral intake for nutrition/hydration without PEG intake at 90% or greater. Speech Adjustment Supervisor Goals Adjustment Supervisor Goals Patient will maintain adequate nutrition/hydration via oral and/or PEG. Speech-Plan Patient/Family Goals Patient/Family Goals: Patient plans on returning home with family support upon discharge from rehab. Treatment Plan Speech Therapy Treatment Plan: Continue Plan of Care Patient is anxious to begin eating "regular". Education provided on diet levels and his MBS results. Treatment Duration: May 12, 2019 Frequency: 4 times per week Estimated Hrs Per Day: .5 hour per day Rehab Potential: Good Barriers to Learning: None identified Pt/Family Agrees to Plan: Yes Safety Risks/Education Teaching Recipient: Patient Teaching Methods: Demonstration, Discussion Response to Teaching: Verbalize Understanding, Return Demonstration Education Topics Provided: Safety of oral intake, compensatory strategies, diet level advance heirarchy. Time Speech Therapy Time In: 09:00 Speech Therapy Time Out: 09:30 Total Billed Time: 30 Billed Treatment Time 1, MANJEET CANDE Copeland May 10, 2019 10:42 POS
--- NOTE | 2019-05-10 11:22 | Physical Therapy Daily Note ---
PT Daily Note-Current Subjective Pt. agrees to rx and states he is better everyday just looking forward to being able to eat something solid Pain Location: No Pain Reported Mental Status Patient Orientation: Normal For Age Attachments: PEG Tube Transfers SCALE: Activities may be completed with or without assistive devices. 1-Mxcnaxglax-ifjgwjf completes the activity by him/herself with no assistance from a helper. 5-Set-up or Clean-up Assistance-helper sets up or cleans up; patient completes activity. [place] assists only prior to or following the activity. 4-Supervision or Touching Assistance-helper provides verbal cues and/or touching/steadying and/or contact guard assistance as patient completes activity. Assistance may be provided throughout the activity or intermittently. 3-Partial/Moderate Assistance-helper does LESS THAN HALF the effort. [place] lifts, holds or supports trunk or limbs, but provides less than half the effort. 2-Substantial/Maximal Assistance-helper does MORE THAN HALF the effort. [place] lifts or holds trunk or limbs and provides more than half the effort. 3-Xmukhqfmg-vfudnx does ALL the effort. Patient does none of the effort to complete the activity. Or, the assistance of 2 or more helpers is required for the patient to complete the activity. If activity was not attempted, code reason: 7-Patient Refused. 9-Not Applicable-not attempted and the patient did not perform the activity before the current illness, exacerbation or injury. 10-Not Attempted due to Environmental Limitations-(lack of equipment, weather restraints, etc.). 88-Not Attempted due to Medical Conditions or Safety Concerns. Roll Left & Right (QC): 6 Sit to Lying (QC): 6 Lying to Sitting/Side of Bed(Q: 6 Sit to Stand (QC): 6 Chair/Owz-sr-Rtsvb Xfer(QC): 6 Toilet Transfer (QC): 6 Car Transfer (QC): 6 Gait Training Does the Patient Walk?: Yes Walk 10 feet (QC): 5 Walk 50 ft with 2 Turns(QC): 5 Walk 150 ft (QC): 5 Gait Persons Needed: 1 (for PRG tube only) Gait Assistive Device: FWW Exercises Supine Ex: Bridging, Ankle pumps, Quad Set, Rolling, Glut sets, Heel Slides, Short Arc Quads, Scooting, Straight leg raise, Hip abd/add Supine Reps: 20 Seated Therapy Exercises: Ankle pumps, Sit to stand, Long arc quads, Hip flexion, Hip abd/add Seated Reps: 20 Standing: Hip Abduction, Hamstring curls, Heel/toe raises, Marching, Mini squats Standing Reps: 20 NuStep Minutes: 15 NuStep Workload: 6 Treatments leg presses on nustep x 20 Assessment Current Status: Good Progress PT Short Term Goals Short Term Goals Time Frame: May 12, 2019 Roll Left & Right: 4 Sit to lyin Lying to sitting on side of be: 4 Sit to stand: 4 Chair/fic-yw-hwqyh transfer: 4 Toilet transfer: 4 Car transfer: 4 Walk 10 feet: 4 Walk 50 feet with two turns: 4 Walk 150 feet: 4 Walking 10ft on uneven surface: 4 1 step (curb): 4 4 steps: 4 PT Welding Specialist Goals Residential Goals PT Residential Goals Time Frame: May 25, 2019 Roll Left & Right (QC): 6 Sit to Lying (QC): 6 Lying-Sitting on Side/Bed(QC): 6 Sit to Stand (QC): 6 Chair/Ejf-he-Haqvg Xfer(QC): 6 Toilet Transfer (QC): 6 Car Transfer (QC): 6 Does the Patient Walk: Yes Walk 10 feet (QC): 6 Walk 50ft with 2 Turns (QC): 6 Walk 150 ft (QC): 6 Walking 10ft on Uneven Surface: 6 1 Step (curb) (QC): 6 4 Steps (QC): 6 12 Steps (QC): 6 Picking up an Object (QC): 4 Does the Pt use WC or Scooter?: No Type: N/A Type: N/A PT Plan Treatment/Plan Treatment Plan: Continue Plan of Care Treatment Plan: Bed Mobility, Education, Functional Activity [place], Functional Strength, Group Therapy, Gait, Safety, Therapeutic Exercise, Transfers Treatment Duration: May 25, 2019 Frequency: Modified Program (IRF) Estimated Hrs Per Day: 1.5 hours per day Patient and/or Family Agrees t: Yes Safety Risks/Education Patient Education: Gait Training, Transfer Techniques, Correct Positioning, Disease Process, Safety Issues Teaching Recipient: Patient Teaching Methods: Demonstration, Discussion Response to Teaching: Verbalize Understanding, Return Demonstration, Reinforcement Needed Time/GCodes Time In: 1000 Time Out: 1115 Total Billed Treatment Time: 75 Total Billed Treatment 1,GT25m,FA20m,EX30m FABIOLA POWERS IRRIGATOR GRAVITY FLOW May 10, 2019 11:22 POS
--- NOTE | 2019-05-10 12:30 | NUR ---
ASSUMED CARE OF PATIENT. REPORT REC'D FROM SERGE POON. AGREE WITH AM ASSESSMENT.
--- NOTE | 2019-05-10 15:15 | NUR ---
Reviewed weekly rehab team conference summary with patient, he is in agreement to a continued stay with review of progress on 05/17/19. ENTERAL FEEDINGS: The hope is that patient can be changed from continuous feeding to a bolus schedule. This will likely be initiated so that a home routine can become established and patient can be educated re same. Nutrition supplies will need to be ordered timely for home use. HHC: Recommended, planned. DME: FWW, shower tub transfer bench, grab bars.
--- NOTE | 2019-05-10 15:32 | NUR ---
Emotional and spiritual support offered through extensive visit. 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 He said the box in his room contained over 1,000 letters from the children there.
[2019-05-10 18:10] VITALS: BP 155/82
[2019-05-10] MEDS: MELATONIN 3 MG TABLET PEG SCH (21:12)
[2019-05-10] MEDS: AMITRIPTYLINE 25 MG (ELAVIL) TAB PO SCH (21:12)
[2019-05-11 05:43] VITALS: BP 134/78
[2019-05-11 05:53] LABS: HEMOGLOBIN 13.5 G/DL (13.3-17.7); MEAN PLATELET VOLUME 12.5 FL (7.4-10.4); RED CELL DISTRIBUTION WIDTH 12.1 % (10.0-14.5); WHITE BLOOD COUNT 4.7 10^3/uL (4.3-11.0)
[2019-05-11] MEDS: MULTIVITAMINS LIQUID 15 ML UDC PEG SCH (06:36)
[2019-05-11] MEDS: THIAMINE 100 MG (VITAMIN B-1) TAB PEG SCH (06:36)
[2019-05-11] MEDS: PANTOPRAZOLE 2 MG/ML LIQUID 200 ML (PROTONIX) PEG SCH ×3 (06:36)
[2019-05-11] MEDS: CYANOCOBALAMIN 1,000 MCG (VITAMIN B-12) TABLET PEG SCH (06:36)
--- NOTE | 2019-05-11 07:45 | Occupational Ther Daily Note ---
OT Current Status-Daily Note Subjective Pt alert, sitting EOB. Pt agrees to therapy. No c/o pain at this time. Mental Status/Objective Patient Orientation: Person, Place, Time, Situation Attachments: PEG Tube ADL-Treatment Pt agrees to shower. Pt able to ambulate with SBA to bathroom using FWW and transfer to toilet using grabbars and FWW with supervision. Completed toileting using grabbars and FWW with supervision. Transferred to shower using FWW and shower bench, supervision. Completed shower using shower bench, grabbar and hand held shower, mod I. After set up, pt able to complete own dressing, using FWW in standing to hike pants over hips. Pt completed own oral care sitting at sink. Therapy Code Descriptions/Definitions Functional [place] Measure: 0=Not Assessed/NA 4=Minimal Assistance 1=Total Assistance 5=Supervision or Setup 2=Maximal Assistance 6=Modified [place] 3=Moderate Assistance 7=Complete IndependenceSCALE: Activities may be completed with or without assistive devices. 3-Vttlzfmvjh-txydzvd completes the activity by him/herself with no assistance from a helper. 5-Set-up or Clean-up Assistance-helper sets up or cleans up; patient completes activity. [place] assists only prior to or following the activity. 4-Supervision or Touching Assistance-helper provides verbal cues and/or touching/steadying and/or contact guard assistance as patient completes activity. Assistance may be provided throughout the activity or intermittently. 3-Partial/Moderate Assistance-helper does LESS THAN HALF the effort. [place] lifts, holds or supports trunk or limbs, but provides less than half the effort. 2-Substantial/Maximal Assistance-helper does MORE THAN HALF the effort. [place] lifts or holds trunk or limbs and provides more than half the effort. 8-Qozncehry-icojph does ALL the effort. Patient does none of the effort to complete the activity. Or, the assistance of 2 or more helpers is required for the patient to complete the activity. If activity was not attempted, code reason: 7-Patient Refused. 9-Not Applicable-not attempted and the patient did not perform the activity before the current illness, exacerbation or injury. 10-Not Attempted due to Environmental Limitations-(lack of equipment, weather restraints, etc.). 88-Not Attempted due to Medical Conditions or Safety Concerns. Eating (QC): 88 Oral Hygiene (QC): 6 Bathing Location: L Arm, R Arm, L Upper Leg, R Upper Leg, L Lower Leg (including foot), R Lower Leg (including foot), Chest, Abdomen, Buttocks, Perineal Area Shower/Bathe Self (QC): 6 Upper Body Dressing (QC): 5 Lower Body Dressing (QC): 5 (Footwear (QC) 6) Toileting Hygiene (QC): 4 Toilet Transfer (QC): 4 Other Treatment Pt ambulated to therapy gym to complete UE strengthening exercises to increase overall strength and activity tolerance for daily functional tasks. 15 min duration on arm bike at 30 mosquera resistance without breaks. Using 3# hand wts complete shldr exercises in all planes and bicep curls, 3 sets 10 reps. Pt then ambulate to [facility] laundry room and completed sequence to wash clothing. After therapy, pt lying in bed with call light/phone in reach. All needs met in room. OT Editor News Goals Mcc Goals Time Frame: May 18, 2019 Eating (QC): 6 Oral Hygiene (QC): 6 Toileting Hygiene (QC): 6 Shower/Bathe Self (QC): 6 Upper Body Dressing (QC): 6 (met) Lower Body Dressing (QC): 6 On/Off Footwear (QC): 6 Additional Goals: 1-Demonstrate ADL Tasks, 2-Verbalize Understanding, 3- ImproveStrength/[place] 1=Demonstrate adherence to instructed precautions during ADL tasks. 2=Patient will verbalize/demonstrate understanding of assistive devices/modifications for ADL. 3=Patient will improve strength/tolerance for activity to enable patient to perform ADL's. OT Education/Plan Problem List/Assessment Assessment: Decreased Activ Tolerance, Decreased UE Strength, Impaired Self- Care Skills Discharge Recommendations Plan/Recommendations: Continue POC Treatment Plan/Plan of Care Patient would benefit from OT for education, treatment and training to promote independence in ADL's, mobility, safety and/or upper extremity function for ADL's. Plan of Care: ADL Retraining, Functional Mobility, Group Exercise/Act as Ind, UE Funct Exercise/Act Treatment Duration: May 18, 2019 Frequency: At least 5 of 7 days/Wk (IRF) Estimated Hrs Per Day: 1.5 hours per day Agreement: Yes Rehab Potential: Good Time/GCodes Start Time: 06:45 Stop Time: 08:15 Total Time Billed (hr/min): 90 Billed Treatment Time 1 visit-ADL 2 (35 min) FA 1 (15 min) EX 3 (40 min) ELIZA AHN May 11, 2019 07:45 POS
[2019-05-11] MEDS: POLYETHYLENE GLYCOL 17 GM (MIRALAX) PACK PO SCH ×2 (10:05→20:13)
[2019-05-11] MEDS: GABAPENTIN 400 MG (NEURONTIN) CAP PEG PRN (10:05)
[2019-05-11] MEDS: FOLIC ACID 1 MG TAB PEG SCH (10:05)
[2019-05-11] MEDS: SENNA W/DOCUSATE (SENOKOT S) TABLET PO SCH ×2 (10:05→20:12)
--- NOTE | 2019-05-11 10:16 | NUR ---
DR. STORY TO FLOOR WITH ORDERS TO CHANGE GABAPENTIN TO 400 MG PO TID.
--- NOTE | 2019-05-11 10:38 | PM&R Progress Note ---
Subjective HPI/CC On Admission Date Seen by Provider: May 11, 2019 Time Seen by Provider: 09:30 Subjective/Events-last exam Pt doing very well [place] thickened liquid is going very well for him No food allowed yet and he is counseled on this fact a lot before he goes home since he is major aspiration risk Coccyx pressure ulcer doing very well Had a BM yesterday and today Pain is well controlled on the Gabapentin so will schedule that 400mg PO TID and Q6hrs prn Conferred with RN Reviewed therapy notes Reviewed meds and labs Review of Systems General: Fatigue Musculoskeletal: leg pain Objective Exam Vital Signs Vital Signs Date Time Temp Pulse Resp B/P (MAP) Pulse Ox O2 Delivery O2 Flow Rate FiO2 05/11/19 18:21 36.9 73 16 135/85 (102) 96 Room Air Capillary Refill : Less Than 3 Seconds General Appearance: No Apparent Distress, WD/WN, Chronically ill, Thin HEENT: PERRL/EOMI, Normal ENT Inspection, Pharynx Normal Neck: Full Range of Motion, Normal Inspection, Non Tender, Supple, Carotid Bruit Respiratory: Chest Non Tender, Lungs Clear, Normal Breath Sounds, No Accessory Muscle Use, No Respiratory Distress Cardiovascular: Regular Rate, Rhythm, No Edema, No Gallop, No JVD, No Murmur, Normal Peripheral Pulses Gastrointestinal: Normal Bowel Sounds, No Organomegaly, No Pulsatile Mass, Non Tender, Soft, Other (PEG tube in place) Back: Normal Inspection, No CVA Tenderness, No Vertebral Tenderness Extremity: Normal Capillary Refill, Normal Inspection, Normal Range of Motion, Non Tender, No Calf Tenderness, No Pedal Edema Neurologic/Psychiatric: Alert, Oriented x3, Normal Mood/Affect, market research lead II-XII Norm as Tested, Motor Weakness (lower legs 3/5), Sensory Deficit Skin: Normal Color, Warm/Dry Lymphatic: No Adenopathy Results/Procedures Lab Laboratory Tests 05/11/19 05:25 Patient resulted labs reviewed. FIM Transfers Therapy Code Descriptions/Definitions Functional [place] Measure: 0=Not Assessed/NA 4=Minimal Assistance 1=Total Assistance 5=Supervision or Setup 2=Maximal Assistance 6=Modified [place] 3=Moderate Assistance 7=Complete IndependenceSCALE: Activities may be completed with or without assistive devices. 7-Jlmzsgetcv-ebytywy completes the activity by him/herself with no assistance from a helper. 5-Set-up or Clean-up Assistance-helper sets up or cleans up; patient completes activity. [place] assists only prior to or following the activity. 4-Supervision or Touching Assistance-helper provides verbal cues and/or touching/steadying and/or contact guard assistance as patient completes activity. Assistance may be provided throughout the activity or intermittently. 3-Partial/Moderate Assistance-helper does LESS THAN HALF the effort. [place] lifts, holds or supports trunk or limbs, but provides less than half the effort. 2-Substantial/Maximal Assistance-helper does MORE THAN HALF the effort. [place] lifts or holds trunk or limbs and provides more than half the effort. 8-Xlauzhmjt-haxwab does ALL the effort. Patient does none of the effort to complete the activity. Or, the assistance of 2 or more helpers is required for the patient to complete the activity. If activity was not attempted, code reason: 7-Patient Refused. 9-Not Applicable-not attempted and the patient did not perform the activity before the current illness, exacerbation or injury. 10-Not Attempted due to Environmental Limitations-(lack of equipment, weather restraints, etc.). 88-Not Attempted due to Medical Conditions or Safety Concerns. Roll Left to Right (QC): 6 Sit to Lying (QC): 6 Sit to Stand (QC): 6 Chair/Hqr-nu-Kdrfw Xfer(QC): 6 Car Transfer (QC): 6 Gait Training Does the Patient Walk?: Yes Distance: 900',600' Walk 10 feet (QC): 5 Walk 50 ft with 2 Turns(QC): 5 Walk 150 ft (QC): 5 Walking 10ft/uneven surface-QC: 3 Gait Persons Needed: 1 (for PRG tube only) Gait Assistive Device: FWW Wheelchair Training Does the Pt Use a Wheelchair?: No Wheel 50 ft with 2 turns (QC): 9 Wheel 150 ft (QC): 9 Stair Training #of Steps: 4 1 Step (curb) (QC): 3 4 Steps (QC): 3 12 Steps (QC): 88 Balance Picking up an Object (QC): 88 ADL-Treatment Eating (QC): 88 Oral Hygiene (QC): 6 Bathing Location: L Arm, R Arm, L Upper Leg, R Upper Leg, L Lower Leg (including foot), R Lower Leg (including foot), Chest, Abdomen, Buttocks, Perineal Area Shower/Bathe Self (QC): 6 Upper Body Dressing (QC): 5 Lower Body Dressing (QC): 5 (Footwear (QC) 6) On/Off Footwear (QC): 2 (Max assist to doff/don slipper socks.) Toileting Hygiene (QC): 4 Toilet Transfer (QC): 4 Assessment/Plan Assessment and Plan Assess & Plan/Chief Complaint 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
--- NOTE | 2019-05-11 11:09 | Physical Therapy Daily Note ---
PT Daily Note-Current Subjective Patient is very agreeable to participate with PT. Pain Numeric Pain Scale: 0-No Pain Location: No Pain Reported Mental Status Patient Orientation: Normal For Age Attachments: PEG Tube Transfers SCALE: Activities may be completed with or without assistive devices. 9-Ntppioeobj-jjrqacw completes the activity by him/herself with no assistance from a helper. 5-Set-up or Clean-up Assistance-helper sets up or cleans up; patient completes activity. [place] assists only prior to or following the activity. 4-Supervision or Touching Assistance-helper provides verbal cues and/or touching/steadying and/or contact guard assistance as patient completes activity. Assistance may be provided throughout the activity or intermittently. 3-Partial/Moderate Assistance-helper does LESS THAN HALF the effort. [place] lifts, holds or supports trunk or limbs, but provides less than half the effort. 2-Substantial/Maximal Assistance-helper does MORE THAN HALF the effort. [place] lifts or holds trunk or limbs and provides more than half the effort. 0-Imqmvuqlr-hdthxw does ALL the effort. Patient does none of the effort to complete the activity. Or, the assistance of 2 or more helpers is required for the patient to complete the activity. If activity was not attempted, code reason: 7-Patient Refused. 9-Not Applicable-not attempted and the patient did not perform the activity before the current illness, exacerbation or injury. 10-Not Attempted due to Environmental Limitations-(lack of equipment, weather restraints, etc.). 88-Not Attempted due to Medical Conditions or Safety Concerns. Roll Left & Right (QC): 6 Sit to Lying (QC): 6 Lying to Sitting/Side of Bed(Q: 6 Sit to Stand (QC): 6 Chair/Wqg-mb-Lipgy Xfer(QC): 6 Toilet Transfer (QC): 6 Car Transfer (QC): 6 Gait Training Does the Patient Walk?: Yes Distance: 300' x 4 Walk 10 feet (QC): 6 Walk 50 ft with 2 Turns(QC): 6 Walk 150 ft (QC): 6 Walking 10ft/uneven surface-QC: 6 Gait Assistive Device: FWW safe and functional with no deviation/patient and nursing have been instructed to be up ad kyra in room and hallway Stair Training Stair Training: Handrails/: 1 handrail #of Steps: 4 1 Step (curb) (QC): 5 4 Steps (QC): 5 (x 2 sets) 12 Steps (QC): 88 Stairs: Pattern: Step to Exercises Seated Therapy Exercises: Ankle pumps, Long arc quads Seated Reps: 15 (2 sets) Standing: Heel/toe raises, 3 way Ex=Flex, Abd, Ext, Marching, Mini squats, Unilateral stance Standing Reps: 15 (x 2 sets on balance pad) Assessment Patient requires recovery periods due to minimize fatigue. Patient is progressing with treatment plan and is highly motivated with progress. Patient desires to return to home next week. PT Short Term Goals Short Term Goals Time Frame: May 12, 2019 Roll Left & Right: 4 Sit to lyin Lying to sitting on side of be: 4 Sit to stand: 4 Chair/ved-ky-hwcmo transfer: 4 Toilet transfer: 4 Car transfer: 4 Walk 10 feet: 4 Walk 50 feet with two turns: 4 Walk 150 feet: 4 Walking 10ft on uneven surface: 4 1 step (curb): 4 4 steps: 4 PT Medical Affairs Manager Goals Medical Affairs Manager Goals PT [facility] Goals Time Frame: May 25, 2019 Roll Left & Right (QC): 6 Sit to Lying (QC): 6 Lying-Sitting on Side/Bed(QC): 6 Sit to Stand (QC): 6 Chair/Edm-pw-Vgjmt Xfer(QC): 6 Toilet Transfer (QC): 6 Car Transfer (QC): 6 Does the Patient Walk: Yes Walk 10 feet (QC): 6 Walk 50ft with 2 Turns (QC): 6 Walk 150 ft (QC): 6 Walking 10ft on Uneven Surface: 6 1 Step (curb) (QC): 6 4 Steps (QC): 6 12 Steps (QC): 6 Picking up an Object (QC): 4 Does the Pt use WC or Scooter?: No Type: N/A Type: N/A PT Plan Treatment/Plan Treatment Plan: Continue Plan of Care Treatment Plan: Bed Mobility, Education, Functional Activity Lavern, Functional Strength, Group Therapy, Gait, Safety, Therapeutic Exercise, Transfers Treatment Duration: May 25, 2019 Frequency: Modified Program (IRF) Estimated Hrs Per Day: 1.5 hours per day Patient and/or Family Agrees t: Yes Time/GCodes Time In: 1000 Time Out: 1045 Total Billed Treatment Time: 45 Total Billed Treatment 1 visit EX x 2 27 min FA 18 LINDA PANDYA PT May 11, 2019 11:09 POS
--- NOTE | 2019-05-11 11:15 | NUR ---
OK FOR PATIENT TO BE UP AD GARRY IN ROOM AND HALLWAY PER LINDA, PT.
[2019-05-11] MEDS: ENOXAPARIN 40 MG/0.4 ML (LOVENOX) SYR SC SCH (11:33)
--- NOTE | 2019-05-11 11:37 | Physical Therapy Daily Note ---
PT Daily Note-Current Subjective Agrees to PT. Mental Status Patient Orientation: Person, Place, Time, Situation Transfers SCALE: Activities may be completed with or without assistive devices. 0-Mpwvadcoih-rytpmkk completes the activity by him/herself with no assistance from a helper. 5-Set-up or Clean-up Assistance-helper sets up or cleans up; patient completes activity. [place] assists only prior to or following the activity. 4-Supervision or Touching Assistance-helper provides verbal cues and/or touching/steadying and/or contact guard assistance as patient completes activity. Assistance may be provided throughout the activity or intermittently. 3-Partial/Moderate Assistance-helper does LESS THAN HALF the effort. [place] lifts, holds or supports trunk or limbs, but provides less than half the effort. 2-Substantial/Maximal Assistance-helper does MORE THAN HALF the effort. [place] lifts or holds trunk or limbs and provides more than half the effort. 1-Sqpasvwtt-yutzzl does ALL the effort. Patient does none of the effort to co mplete the activity. Or, the assistance of 2 or more helpers is required for the patient to complete the activity. If activity was not attempted, code reason: 7-Patient Refused. 9-Not Applicable-not attempted and the patient did not perform the activity before the current illness, exacerbation or injury. 10-Not Attempted due to Environmental Limitations-(lack of equipment, weather restraints, etc.). 88-Not Attempted due to Medical Conditions or Safety Concerns. pt is set up assist with all functional transfers. Gait Training Gait Assistive Device: FWW pt ambulated x >500 ft with FWW with set up assist with multiple turns, slopes, obstacles, in room, in small areas. Exercises NuStep Minutes: 15 (t increase LE strength and functional act tolerance.) Assessment Current Status: Good Progress Pt is progressing well. Pt making gains towards goals. PT Short Term Goals Short Term Goals Time Frame: May 12, 2019 Roll Left & Right: 4 (met) Sit to lyin (met) Lying to sitting on side of be: 4 (met) Sit to stand: 4 (met) Chair/xzg-re-nllbg transfer: 4 (met) Toilet transfer: 4 Car transfer: 4 Walk 10 feet: 4 (met) Walk 50 feet with two turns: 4 (met) Walk 150 feet: 4 (met) Walking 10ft on uneven surface: 4 1 step (curb): 4 4 steps: 4 PT Prison Goals Prison Goals PT Prison Goals Time Frame: May 25, 2019 Roll Left & Right (QC): 6 Sit to Lying (QC): 6 Lying-Sitting on Side/Bed(QC): 6 Sit to Stand (QC): 6 Chair/Euj-sj-Dmfcp Xfer(QC): 6 Toilet Transfer (QC): 6 Car Transfer (QC): 6 Does the Patient Walk: Yes Walk 10 feet (QC): 6 Walk 50ft with 2 Turns (QC): 6 Walk 150 ft (QC): 6 Walking 10ft on Uneven Surface: 6 1 Step (curb) (QC): 6 4 Steps (QC): 6 12 Steps (QC): 6 Picking up an Object (QC): 4 Does the Pt use WC or Scooter?: No Type: N/A Type: N/A PT Plan Problem List Problem List: Activity Tolerance, Functional Strength, Safety, Balance, Gait, Transfer, Bed Mobility Treatment/Plan Treatment Plan: Continue Plan of Care Treatment Plan: Bed Mobility, Education, Functional Activity Lavern, Functional Strength, Group Therapy, Gait, Safety, Therapeutic Exercise, Transfers Treatment Duration: May 25, 2019 Frequency: Modified Program (IRF) Estimated Hrs Per Day: 1.5 hours per day Patient and/or Family Agrees t: Yes Safety Risks/Education Patient Education: Safety Issues Teaching Recipient: Patient Teaching Methods: Discussion Response to Teaching: Verbalize Understanding Time/GCodes Time In: 1045 Time Out: 1130 Total Billed Treatment Time: 45 Total Billed Treatment visit EX 15 Gt 30 ELIZA PRADHAN PT May 11, 2019 11:37 POS
[2019-05-11] MEDS: GABAPENTIN 400 MG (NEURONTIN) CAP PO SCH ×2 (14:17→20:12)
[2019-05-11 18:21] VITALS: BP 135/85
--- NOTE | 2019-05-11 18:28 | NUR ---
TOLERATING BOLUS TUBE FEEDINGS WELL WITH LOW RESIDUALS AND NO NAUSEA.
[2019-05-11] MEDS: AMITRIPTYLINE 25 MG (ELAVIL) TAB PO SCH (20:12)
[2019-05-11] MEDS: MELATONIN 3 MG TABLET PEG SCH (20:13)
[2019-05-11] MEDS: oxyCODONE 5 MG/5 ML ORAL SOLN (roxiCODONE) 5 ML UDC PEG PRN (20:16)
--- NOTE | 2019-05-11 21:00 | NUR ---
AT FIRST STATED NEURONTIN WAS HELPING BURNING/TINGLING/NUMBNESS IN TOES, THEN STATED "NOTHING HAS HELPED TODAY". MEDICATED WITH OXYCODONE ALONG WITH NEURONTIN. STATES TOOK ALLEVYN OFF SACRUM EARLIER TODAY - "I DON'T NEED IT ANYMORE". FEELS DOES NOT NEED ABDOMINAL BINDER ANYMORE FOR G TUBE PROTECTION. CONTINUES TO TOLERATE BOLUS TUBE FEEDINGS WELL. MEDICATIONS GIVEN PER G TUBE.
[2019-05-12 05:50] VITALS: BP 131/82
--- NOTE | 2019-05-12 06:00 | NUR ---
SLEPT WELL. DENIES NEED FOR PAIN MEDS THIS AM. UP IN WHEELCHAIR.
[2019-05-12] MEDS: MULTIVITAMINS LIQUID 15 ML UDC PEG SCH (06:01)
[2019-05-12] MEDS: CYANOCOBALAMIN 1,000 MCG (VITAMIN B-12) TABLET PEG SCH (06:01)
[2019-05-12] MEDS: THIAMINE 100 MG (VITAMIN B-1) TAB PEG SCH (06:01)
[2019-05-12] MEDS: PANTOPRAZOLE 2 MG/ML LIQUID 200 ML (PROTONIX) PEG SCH ×3 (06:02)
--- NOTE | 2019-05-12 07:08 | Occupational Ther Daily Note ---
OT Current Status-Daily Note Subjective Pt alert, sitting EOB. Pt agrees to therapy. No c/o pain at this time. Pt states throughout therapy that he is hungry and as soon as he can eat he will be 100% better. SALAZAR discussed with pt about the nutrition that he is receiving from Bolus feeding and exercises strengthening whole body. Mental Status/Objective Patient Orientation: Person, Place, Time, Situation Attachments: PEG Tube ADL-Treatment Pt declined shower and changing clothing. Pt did maneuver w/c to bathroom to complete oral care. Therapy Code Descriptions/Definitions Functional [place] Measure: 0=Not Assessed/NA 4=Minimal Assistance 1=Total Assistance 5=Supervision or Setup 2=Maximal Assistance 6=Modified [place] 3=Moderate Assistance 7=Complete IndependenceSCALE: Activities may be completed with or without assistive devices. 4-Xaqmdkowom-vrgvlww completes the activity by him/herself with no assistance from a helper. 5-Set-up or Clean-up Assistance-helper sets up or cleans up; patient completes activity. [place] assists only prior to or following the activity. 4-Supervision or Touching Assistance-helper provides verbal cues and/or touching/steadying and/or contact guard assistance as patient completes activity. Assistance may be provided throughout the activity or intermittently. 3-Partial/Moderate Assistance-helper does LESS THAN HALF the effort. [place] lifts, holds or supports trunk or limbs, but provides less than half the effort. 2-Substantial/Maximal Assistance-helper does MORE THAN HALF the effort. [place] lifts or holds trunk or limbs and provides more than half the effort. 9-Lfgjiewyl-uzibex does ALL the effort. Patient does none of the effort to complete the activity. Or, the assistance of 2 or more helpers is required for the patient to complete the activity. If activity was not attempted, code reason: 7-Patient Refused. 9-Not Applicable-not attempted and the patient did not perform the activity before the current illness, exacerbation or injury. 10-Not Attempted due to Environmental Limitations-(lack of equipment, weather restraints, etc.). 88-Not Attempted due to Medical Conditions or Safety Concerns. Eating (QC): 88 Oral Hygiene (QC): 6 Other Treatment Pt ambulated to [email or web address] laundry room to take dry clothes out of dry and put wet clothing in, supervision. Pt took clothing back to room and sat EOB to fold clothing then took clothing to closet without FWW, CGA, no balance breaks. Pt then ambulated to therapy gym using FWW, supervision. Completed arm bike for 15 min at 45 mosquera resistance to increase strength and activity tolerance. Pt then ambulated to parallel bars to work on ambulating without FWW and picking up items from floor. Pt used bar for balance initially to burr picker items then 2nd time pt did not use bar to balance self, CGA for safety only, pt did not lose balance. Pt then worked on dynamic standing activity with 1# wt on arms for strengthening. Pt ambulated back to room and laid on bed. Reviewed theraband HEP, pt required verbal and visual cues to complete correct technique and reminders of which exercises to complete, 1 set 10 reps. SALAZAR recommended for pt to complete 3 sets 10 reps each day. Call light/phone in reach after therapy. All needs met in room. OT Vice President Network Goals Longterm Goals Time Frame: May 18, 2019 Eating (QC): 6 Oral Hygiene (QC): 6 Toileting Hygiene (QC): 6 Shower/Bathe Self (QC): 6 Upper Body Dressing (QC): 6 (met) Lower Body Dressing (QC): 6 On/Off Footwear (QC): 6 Additional Goals: 1-Demonstrate ADL Tasks, 2-Verbalize Understanding, 3-ImproveStrength/[place] 1=Demonstrate adherence to instructed precautions during ADL tasks. 2=Patient will verbalize/demonstrate understanding of assistive devices/modifications for ADL. 3=Patient will improve strength/tolerance for activity to enable patient to perform ADL's. OT Education/Plan Problem List/Assessment Assessment: Decreased Activ Tolerance, Decreased UE Strength, Impaired Self- Care Skills Discharge Recommendations Plan/Recommendations: Continue POC Treatment Plan/Plan of Care Patient would benefit from OT for education, treatment and training to promote independence in ADL's, mobility, safety and/or upper extremity function for ADL's. Plan of Care: ADL Retraining, Functional Mobility, Group Exercise/Act as Ind, UE Funct Exercise/Act Treatment Duration: May 18, 2019 Frequency: At least 5 of 7 days/Wk (IRF) Estimated Hrs Per Day: 1.5 hours per day Agreement: Yes Rehab Potential: Good Time/GCodes Start Time: 07:00 Stop Time: 08:30 Total Time Billed (hr/min): 90 Billed Treatment Time 1 visit-ADL 1 (15 min) FA 2 (30 min) EX 3 (45 min) ELIZA AHN May 12, 2019 07:08 POS
--- NOTE | 2019-05-12 09:55 | Physical Therapy Daily Note ---
PT Daily Note-Current Subjective pt in bed pre-tx agrees to therapy and denies pain at this time. Appearance pt sitting EOB post-tx with call light in reach and all needs met at this time. Mental Status Patient Orientation: Person, Place, Time, Situation Attachments: PEG Tube Transfers SCALE: Activities may be completed with or without assistive devices. 1-Iksklhigzp-kujpyvc completes the activity by him/herself with no assistance from a helper. 5-Set-up or Clean-up Assistance-helper sets up or cleans up; patient completes activity. [place] assists only prior to or following the activity. 4-Supervision or Touching Assistance-helper provides verbal cues and/or touching/steadying and/or contact guard assistance as patient completes activi ty. Assistance may be provided throughout the activity or intermittently. 3-Partial/Moderate Assistance-helper does LESS THAN HALF the effort. [place] lifts, holds or supports trunk or limbs, but provides less than half the effort. 2-Substantial/Maximal Assistance-helper does MORE THAN HALF the effort. [place] lifts or holds trunk or limbs and provides more than half the effort. 2-Dhntpltep-tprkrt does ALL the effort. Patient does none of the effort to complete the activity. Or, the assistance of 2 or more helpers is required for the patient to complete the activity. If activity was not attempted, code reason: 7-Patient Refused. 9-Not Applicable-not attempted and the patient did not perform the activity before the current illness, exacerbation or injury. 10-Not Attempted due to Environmental Limitations-(lack of equipment, weather restraints, etc.). 88-Not Attempted due to Medical Conditions or Safety Concerns. Lying to Sitting/Side of Bed(Q: 6 Sit to Stand (QC): 6 Chair/Jdw-mr-Oupvk Xfer(QC): 6 Gait Training Does the Patient Walk?: Yes Distance: 900' Walk 10 feet (QC): 5 Walk 50 ft with 2 Turns(QC): 5 Walk 150 ft (QC): 5 Gait Assistive Device: None pt continues to ambulate with a shorter stride and slower gait pattern. Exercises Seated Therapy Exercises: Long arc quads, Hip flexion, Hip abd/add Seated Reps: 45 (15reps 3 sets with 2# ankle weights.) NuStep Minutes: 20 NuStep Workload: 6 Treatments pt performed functional LE strengthening/endurance training, skilled ambulation training, transfer training, and education Assessment Current Status: Excellent Progress pt has progressed to walking without an AD. pt continues to have short stride an d slower than normal gait but has no LOB this session however, pt reports every once in a while he feels a little unstable on his feet. Pt is very upset that he is still unable to eat and feels like he needs to be able to eat to make a full recovery. PT Short Term Goals Short Term Goals Time Frame: May 12, 2019 Roll Left & Right: 4 (met) Sit to lyin (met) Lying to sitting on side of be: 4 (met) Sit to stand: 4 (met) Chair/coq-du-inzns transfer: 4 (met) Toilet transfer: 4 Car transfer: 4 Walk 10 feet: 4 (met) Walk 50 feet with two turns: 4 (met) Walk 150 feet: 4 (met) Walking 10ft on uneven surface: 4 1 step (curb): 4 4 steps: 4 PT Jail Goals Water/[place]aste[employer] Project Engineer Goals PT Jail Goals Time Frame: May 25, 2019 Roll Left & Right (QC): 6 Sit to Lying (QC): 6 Lying-Sitting on Side/Bed(QC): 6 Sit to Stand (QC): 6 Chair/Cpr-se-Epkhg Xfer(QC): 6 Toilet Transfer (QC): 6 Car Transfer (QC): 6 Does the Patient Walk: Yes Walk 10 feet (QC): 6 Walk 50ft with 2 Turns (QC): 6 Walk 150 ft (QC): 6 Walking 10ft on Uneven Surface: 6 1 Step (curb) (QC): 6 4 Steps (QC): 6 12 Steps (QC): 6 Picking up an Object (QC): 4 Does the Pt use WC or Scooter?: No Type: N/A Type: N/A PT Plan Problem List Problem List: Activity Tolerance, Functional Strength, Safety, Balance, Gait, Transfer, Bed Mobility, ROM Treatment/Plan Treatment Plan: Continue Plan of Care Treatment Plan: Bed Mobility, Education, Functional Activity Lavern, Functional Strength, Group Therapy, Gait, Safety, Therapeutic Exercise, Transfers Treatment Duration: May 25, 2019 Frequency: Modified Program (IRF) Estimated Hrs Per Day: 1.5 hours per day Patient and/or Family Agrees t: Yes Safety Risks/Education Patient Education: Gait Training, Transfer Techniques, Correct Positioning, Safety Issues Teaching Recipient: Patient Teaching Methods: Demonstration, Discussion Response to Teaching: Return Demonstration, Reinforcement Needed Time/GCodes Time In: 0900 Time Out: 1000 Total Billed Treatment Time: 60 Total Billed Treatment 1 visit 30' GT EX 30' VAIBHAV DYER PT May 12, 2019 09:55 POS
[2019-05-12] MEDS: POLYETHYLENE GLYCOL 17 GM (MIRALAX) PACK PO SCH ×2 (10:08→21:58)
[2019-05-12] MEDS: GABAPENTIN 400 MG (NEURONTIN) CAP PO SCH ×3 (10:08→19:17)
[2019-05-12] MEDS: FOLIC ACID 1 MG TAB PEG SCH (10:08)
[2019-05-12] MEDS: SENNA W/DOCUSATE (SENOKOT S) TABLET PO SCH ×2 (10:10→21:59)
[2019-05-12] MEDS: ENOXAPARIN 40 MG/0.4 ML (LOVENOX) SYR SC SCH (11:08)
--- NOTE | 2019-05-12 12:04 | PM&R Progress Note ---
Subjective HPI/CC On Admission Date Seen by Provider: May 12, 2019 Time Seen by Provider: 10:30 Subjective/Events-last exam Pt doing very well except depression and he is now willing to start on a anti- depressant Murphy thickened liquid is going very well for him and he is grateful for that at least he states No food allowed yet and he is counseled on this fact a lot before he goes home since he is major aspiration risk and we talked about his need to be patient with himself and maintain compliance Coccyx pressure ulcer doing very well and nearly healed BM regular Pain is well controlled on the Gabapentin so scheduled that 400mg PO TID and Q6hrs prn Conferred with RN Reviewed therapy notes Reviewed meds and labs Review of Systems General: Fatigue Musculoskeletal: foot pain Neurological: Weakness, Numbness, Incoordination Depression Objective Exam Vital Signs Vital Signs Date Time Temp Pulse Resp B/P (MAP) Pulse Ox O2 Delivery O2 Flow Rate FiO2 05/12/19 09:00 Room Air 05/12/19 05:50 36.5 69 18 131/82 (98) 96 Capillary Refill : Less Than 3 Seconds General Appearance: No Apparent Distress, WD/WN, Chronically ill, Thin HEENT: PERRL/EOMI, Normal ENT Inspection, Pharynx Normal Neck: Full Range of Motion, Normal Inspection, Non Tender, Supple, Carotid Bruit Respiratory: Chest Non Tender, Lungs Clear, Normal Breath Sounds, No Accessory Muscle Use, No Respiratory Distress Cardiovascular: Regular Rate, Rhythm, No Edema, No Gallop, No JVD, No Murmur, Normal Peripheral Pulses Gastrointestinal: Normal Bowel Sounds, No Organomegaly, No Pulsatile Mass, Non Tender, Soft, Other (PEG tube in place) Back: Normal Inspection, No CVA Tenderness, No Vertebral Tenderness Extremity: Normal Capillary Refill, Normal Inspection, Normal Range of Motion, Non Tender, No Calf Tenderness, No Pedal Edema Neurologic/Psychiatric: Alert, Oriented x3, classified ad taker II-XII Norm as Tested, Depressed Affect, Motor Weakness (lower legs 3/5), Sensory Deficit Skin: Normal Color, Warm/Dry Lymphatic: No Adenopathy Results/Procedures Lab Patient resulted labs reviewed. FIM Transfers Therapy Code Descriptions/Definitions Functional [place] Measure: 0=Not Assessed/NA 4=Minimal Assistance 1=Total Assistance 5=Supervision or Setup 2=Maximal Assistance 6=Modified [place] 3=Moderate Assistance 7=Complete IndependenceSCALE: Activities may be completed with or without assistive devices. 3-Utybwpslyp-uzaecnm completes the activity by him/herself with no assistance from a helper. 5-Set-up or Clean-up Assistance-helper sets up or cleans up; patient completes a ctivity. [place] assists only prior to or following the activity. 4-Supervision or Touching Assistance-helper provides verbal cues and/or touching/steadying and/or contact guard assistance as patient completes activity. Assistance may be provided throughout the activity or intermittently. 3-Partial/Moderate Assistance-helper does LESS THAN HALF the effort. [place] lifts, holds or supports trunk or limbs, but provides less than half the effort. 2-Substantial/Maximal Assistance-helper does MORE THAN HALF the effort. [place] lifts or holds trunk or limbs and provides more than half the effort. 7-Tbwebwzom-aypizg does ALL the effort. Patient does none of the effort to complete the activity. Or, the assistance of 2 or more helpers is required for the patient to complete the activity. If activity was not attempted, code reason: 7-Patient Refused. 9-Not Applicable-not attempted and the patient did not perform the activity before the current illness, exacerbation or injury. 10-Not Attempted due to Environmental Limitations-(lack of equipment, weather restraints, etc.). 88-Not Attempted due to Medical Conditions or Safety Concerns. Roll Left to Right (QC): 6 Sit to Lying (QC): 6 Sit to Stand (QC): 6 Chair/Tvu-nc-Fggir Xfer(QC): 6 Car Transfer (QC): 6 Gait Training Does the Patient Walk?: Yes Distance: 900' Walk 10 feet (QC): 5 Walk 50 ft with 2 Turns(QC): 5 Walk 150 ft (QC): 5 Walking 10ft/uneven surface-QC: 6 Gait Persons Needed: 1 (for PRG tube only) Gait Assistive Device: None Wheelchair Training Does the Pt Use a Wheelchair?: No Wheel 50 ft with 2 turns (QC): 9 Wheel 150 ft (QC): 9 Stair Training Stair Training: Handrails/: 1 handrail #of Steps: 4 1 Step (curb) (QC): 5 4 Steps (QC): 5 (x 2 sets) 12 Steps (QC): 88 Stairs: Pattern: Step to Balance Picking up an Object (QC): 88 ADL-Treatment Eating (QC): 88 Oral Hygiene (QC): 6 Bathing Location: L Arm, R Arm, L Upper Leg, R Upper Leg, L Lower Leg (including foot), R Lower Leg (including foot), Chest, Abdomen, Buttocks, Perineal Area Shower/Bathe Self (QC): 6 Upper Body Dressing (QC): 5 Lower Body Dressing (QC): 5 (Footwear (QC) 6) On/Off Footwear (QC): 2 (Max assist to doff/don slipper socks.) Toileting Hygiene (QC): 4 Toilet Transfer (QC): 4 Assessment/Plan Assessment and Plan Assess & Plan/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
--- NOTE | 2019-05-12 12:08 | Occupational Ther Daily Note ---
OT Current Status-Daily Note ADL-Treatment Therapy Code Descriptions/Definitions Functional [place] Measure: 0=Not Assessed/NA 4=Minimal Assistance 1=Total Assistance 5=Supervision or Setup 2=Maximal Assistance 6=Modified [place] 3=Moderate Assistance 7=Complete IndependenceSCALE: Activities may be completed with or without assistive devices. 3-Jhhgvttojk-ilkjvgd completes the activity by him/herself with no assistance from a helper. 5-Set-up or Clean-up Assistance-helper sets up or cleans up; patient completes activity. [place] assists only prior to or following the activity. 4-Supervision or Touching Assistance-helper provides verbal cues and/or touching/steadying and/or contact guard assistance as patient completes activity. Assistance may be provided throughout the activity or intermittently. 3-Partial/Moderate Assistance-helper does LESS THAN HALF the effort. [place] lifts, holds or supports trunk or limbs, but provides less than half the effort. 2-Substantial/Maximal Assistance-helper does MORE THAN HALF the effort. [place] lifts or holds trunk or limbs and provides more than half the effort. 6-Dozrowcqg-enuaxa does ALL the effort. Patient does none of the effort to complete the activity. Or, the assistance of 2 or more helpers is required for the patient to complete the activity. If activity was not attempted, code reason: 7-Patient Refused. 9-Not Applicable-not attempted and the patient did not perform the activity before the current illness, exacerbation or injury. 10-Not Attempted due to Environmental Limitations-(lack of equipment, weather restraints, etc.). 88-Not Attempted due to Medical Conditions or Safety Concerns. OT Retirement Goals Landscape Foreman Goals Time Frame: May 18, 2019 Eating (QC): 6 Oral Hygiene (QC): 6 Toileting Hygiene (QC): 6 Shower/Bathe Self (QC): 6 Upper Body Dressing (QC): 6 (met) Lower Body Dressing (QC): 6 On/Off Footwear (QC): 6 Additional Goals: 1-Demonstrate ADL Tasks, 2-Verbalize Understanding, 3- ImproveStrength/[place] 1=Demonstrate adherence to instructed precautions during ADL tasks. 2=Patient will verbalize/demonstrate understanding of assistive devices/modifications for ADL. 3=Patient will improve strength/tolerance for activity to enable patient to perform ADL's. OT Education/Plan Treatment Plan/Plan of Care Patient would benefit from OT for education, treatment and training to promote independence in ADL's, mobility, safety and/or upper extremity function for ADL's. Plan of Care: ADL Retraining, Functional Mobility, Group Exercise/Act as Ind, UE Funct Exercise/Act Treatment Duration: May 18, 2019 Frequency: At least 5 of 7 days/Wk (IRF) Estimated Hrs Per Day: 1.5 hours per day Agreement: Yes Rehab Potential: ELIZA Guevara May 12, 2019 12:08 POS
--- NOTE | 2019-05-12 12:41 | Speech Therapy Daily Note ---
Speech Daily Progress Note Subjective Date Seen by Provider: May 12, 2019 Time Seen by Provider: 00:30 Patient was resting in bed and drinking his "soda". Objective Patient demo utilization of safe intake of drink as directed at 90% with minimal cues. Assessment Assessment Current Status: Good Progress Treatment Plan Continue Plan of Care Speech Short Term Goals Short Term Goals Short Term Goals 1) The patient will tolerate least restrictive diet level without s/s of aspiration at 90% or greater. 2) The patient will utilize compensatory strategies as trained for safety of oral intake given minimal cues at 90% or greater. 3) The patient will progress to oral intake for nutrition/hydration without PEG intake at 90% or greater. Speech Help Desk Administrator Goals Help Desk Administrator Goals Patient will maintain adequate nutrition/hydration via oral and/or PEG. Speech-Plan Patient/Family Goals Patient/Family Goals: Patient plans on returning home with family upon rehab discharge. Treatment Plan Speech Therapy Treatment Plan: Continue Plan of Care Patient is scheduled for a follow up MBS on 05/17/19 at 12:30. Treatment Duration: May 19, 2019 Frequency: 4 times per week Estimated Hrs Per Day: .5 hour per day Rehab Potential: Good Barriers to Learning: Patient is set on eating and vocalizes he understands why, however he continues to ask every staff member daily about why he can't eat. Pt/Family Agrees to Plan: Yes Safety Risks/Education Teaching Recipient: Patient Teaching Methods: Demonstration, Discussion Response to Teaching: Verbalize Understanding, Return Demonstration Education Topics Provided: Continued safety of oral intake. Time Speech Therapy Time In: 10:00 Speech Therapy Time Out: 10:30 Total Billed Time: 30 Billed Treatment Time 1, CANDE Delgado May 12, 2019 12:41 POS
[2019-05-12 17:25] VITALS: BP 124/77
[2019-05-12] MEDS: HYDROcodone/APAP 5 MG/325 MG (LORTAB) TAB PO PRN ×2 (17:27→21:35)
--- NOTE | 2019-05-12 18:54 | NUR ---
Peg tube site cleansedwith normal saline with new dressing applied. Has small amount of dark drainage noted. Pt tolerated well
[2019-05-12] MEDS: AMITRIPTYLINE 25 MG (ELAVIL) TAB PO SCH (21:36)
[2019-05-12] MEDS: MELATONIN 3 MG TABLET PEG SCH (21:36)
[2019-05-13] MEDS: CYANOCOBALAMIN 1,000 MCG (VITAMIN B-12) TABLET PEG SCH (06:17)
[2019-05-13] MEDS: MULTIVITAMINS LIQUID 15 ML UDC PEG SCH (06:17)
[2019-05-13] MEDS: THIAMINE 100 MG (VITAMIN B-1) TAB PEG SCH (06:17)
[2019-05-13] MEDS: HYDROcodone/APAP 5 MG/325 MG (LORTAB) TAB PO PRN (06:20)
[2019-05-13 06:52] VITALS: BP 132/76
[2019-05-13] MEDS: PANTOPRAZOLE 2 MG/ML LIQUID 200 ML (PROTONIX) PEG SCH ×3 (07:18)
[2019-05-13] MEDS: FOLIC ACID 1 MG TAB PEG SCH (09:17)
[2019-05-13] MEDS: oxyCODONE 5 MG/5 ML ORAL SOLN (roxiCODONE) 5 ML UDC PEG PRN ×3 (09:17→21:21)
[2019-05-13] MEDS: GABAPENTIN 400 MG (NEURONTIN) CAP PO SCH ×3 (09:17→21:22)
[2019-05-13] MEDS: SENNA W/DOCUSATE (SENOKOT S) TABLET PO SCH ×2 (09:32→21:22)
[2019-05-13] MEDS: POLYETHYLENE GLYCOL 17 GM (MIRALAX) PACK PO SCH ×2 (09:32→21:22)
[2019-05-13] MEDS: ENOXAPARIN 40 MG/0.4 ML (LOVENOX) SYR SC SCH (10:38)
--- NOTE | 2019-05-13 11:54 | NUR ---
DR. STORY HERE TO SEE PATIENT. ORDERS FOR NEURONTIN 400 MG PO TID AND Q6H PRN. VOLTAREN GEL TO TOES AND FEET TID AND KPAD.
[2019-05-13] MEDS ORDERED: GABAPENTIN 400 MG (NEURONTIN) CAP PO PRN (12:00)
[2019-05-13] MEDS: DICLOFENAC 1% GEL 100 GM (VOLTAREN) TUBE TOP SCH ×2 (12:27→21:29)
--- NOTE | 2019-05-13 12:29 | PM&R Progress Note ---
Subjective HPI/CC On Admission Date Seen by Provider: May 13, 2019 Time Seen by Provider: 11:15 Subjective/Events-last exam Pt doing very well except severe neuropathy pain in his feet and toes Will initiate Kpad and Diclofenac gel to help with the nerve ending pain Coccyx pressure ulcer doing very well and nearly healed BM regular Gabapentin scheduled 400mg PO TID and Q6hrs prn to help pain control but I did tell him that neuropathic pain is very difficult to treat Conferred with RN Reviewed therapy notes Reviewed meds and labs Review of Systems Musculoskeletal: leg pain, foot pain Depression Objective Exam Vital Signs Vital Signs Date Time Temp Pulse Resp B/P (MAP) Pulse Ox O2 Delivery O2 Flow Rate FiO2 05/13/19 09:37 Room Air 05/13/19 06:52 36.9 70 18 132/76 (94) 97 Capillary Refill : Less Than 3 Seconds General Appearance: No Apparent Distress, WD/WN, Chronically ill, Thin HEENT: PERRL/EOMI, Normal ENT Inspection, Pharynx Normal Neck: Full Range of Motion, Normal Inspection, Non Tender, Supple, Carotid Bruit Respiratory: Chest Non Tender, Lungs Clear, Normal Breath Sounds, No Accessory Muscle Use, No Respiratory Distress Cardiovascular: Regular Rate, Rhythm, No Edema, No Gallop, No JVD, No Murmur, Normal Peripheral Pulses Gastrointestinal: Normal Bowel Sounds, No Organomegaly, No Pulsatile Mass, Non Tender, Soft, Other (PEG tube in place) Back: Normal Inspection, No CVA Tenderness, No Vertebral Tenderness Extremity: Normal Capillary Refill, Normal Inspection, Normal Range of Motion, Non Tender, No Calf Tenderness, No Pedal Edema Neurologic/Psychiatric: Alert, Oriented x3, 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 FIM Transfers Therapy Code Descriptions/Definitions Functional [place] Measure: 0=Not Assessed/NA 4=Minimal Assistance 1=Total Assistance 5=Supervision or Setup 2=Maximal Assistance 6=Modified [place] 3=Moderate Assistance 7=Complete IndependenceSCALE: Activities may be completed with or without assistive devices. 7-Jjpsigffpk-xbvcwjt completes the activity by him/herself with no assistance from a helper. 5-Set-up or Clean-up Assistance-helper sets up or cleans up; patient completes activity. [place] assists only prior to or following the activity. 4-Supervision or Touching Assistance-helper provides verbal cues and/or touching/steadying and/or contact guard assistance as patient completes activity. Assistance may be provided throughout the activity or intermittently. 3-Partial/Moderate Assistance-helper does LESS THAN HALF the effort. [place] lifts, holds or supports trunk or limbs, but provides less than half the effort. 2-Substantial/Maximal Assistance-helper does MORE THAN HALF the effort. [place] lifts or holds trunk or limbs and provides more than half the effort. 2-Zznadxjff-suwcbf does ALL the effort. Patient does none of the effort to complete the activity. Or, the assistance of 2 or more helpers is required for the patient to complete the activity. If activity was not attempted, code reason: 7-Patient Refused. 9-Not Applicable-not attempted and the patient did not perform the activity before the current illness, exacerbation or injury. 10-Not Attempted due to Environmental Limitations-(lack of equipment, weather restraints, etc.). 88-Not Attempted due to Medical Conditions or Safety Concerns. Roll Left to Right (QC): 6 Sit to Lying (QC): 6 Sit to Stand (QC): 6 Chair/Duv-jk-Gqplg Xfer(QC): 6 Car Transfer (QC): 6 Gait Training Does the Patient Walk?: Yes Distance: 900' Walk 10 feet (QC): 5 Walk 50 ft with 2 Turns(QC): 5 Walk 150 ft (QC): 5 Walking 10ft/uneven surface-QC: 6 Gait Persons Needed: 1 (for PRG tube only) Gait Assistive Device: None Wheelchair Training Does the Pt Use a Wheelchair?: No Wheel 50 ft with 2 turns (QC): 9 Wheel 150 ft (QC): 9 Stair Training Stair Training: Handrails/: 1 handrail #of Steps: 4 1 Step (curb) (QC): 5 4 Steps (QC): 5 (x 2 sets) 12 Steps (QC): 88 Stairs: Pattern: Step to Balance Picking up an Object (QC): 88 ADL-Treatment Eating (QC): 6 (Pt completed meal independently seated up in bed.) Oral Hygiene (QC): 7 (Pt declined putting/cleaning dentures this a.m/) Bathing Location: L Arm, R Arm, L Upper Leg, R Upper Leg, L Lower Leg (including foot), R Lower Leg (including foot), Chest, Abdomen, Buttocks, Perineal Area Shower/Bathe Self (QC): 5 (Pt completed sponge bath seated at EOB with set up.) Upper Body Dressing (QC): 5 (Pt completed UB dressing seated EOB with set up.) Lower Body Dressing (QC): 4 (SBA required in stance to hike pants/underwear over hips.) On/Off Footwear (QC): 2 (Max assist to doff/don slipper socks.) Toileting Hygiene (QC): 7 (Pt declined using toilet.) Toilet Transfer (QC): 7 Assessment/Plan Assessment and Plan Assess & Plan/Chief Complaint 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
--- NOTE | 2019-05-13 12:29 | Physical Therapy Daily Note ---
PT Daily Note-Current Subjective Pt agreeable to PT session. Reports having a lot of neuropathy pain in feet. States feels pretty good to be up walking without walker now, but still taking it slow and cautious Pain Numeric Pain Scale: 8 Comment: neuropathy feet and lower legs Appearance Pt in bed awake and alert upon arrival. At end of session, pt sitting EOB with call light, phone and bedside table within reach Mental Status Patient Orientation: Person, Place, Time, Eyes Open, Situation, Normal For Age Attachments: PEG Tube Transfers SCALE: Activities may be completed with or without assistive devices. 7-Eswczdlwlj-ixpybyf completes the activity by him/herself with no assistance from a helper. 5-Set-up or Clean-up Assistance-helper sets up or cleans up; patient completes activity. [place] assists only prior to or following the activity. 4-Supervision or Touching Assistance-helper provides verbal cues and/or touchin g/steadying and/or contact guard assistance as patient completes activity. Assistance may be provided throughout the activity or intermittently. 3-Partial/Moderate Assistance-helper does LESS THAN HALF the effort. [place] lifts, holds or supports trunk or limbs, but provides less than half the effort. 2-Substantial/Maximal Assistance-helper does MORE THAN HALF the effort. [place] lifts or holds trunk or limbs and provides more than half the effort. 2-Jivrdpgex-ehmmqh does ALL the effort. Patient does none of the effort to complete the activity. Or, the assistance of 2 or more helpers is required for the patient to complete the activity. If activity was not attempted, code reason: 7-Patient Refused. 9-Not Applicable-not attempted and the patient did not perform the activity before the current illness, exacerbation or injury. 10-Not Attempted due to Environmental Limitations-(lack of equipment, weather restraints, etc.). 88-Not Attempted due to Medical Conditions or Safety Concerns. Sit to Lying (QC): 6 Lying to Sitting/Side of Bed(Q: 6 Sit to Stand (QC): 6 Gait Training Does the Patient Walk?: Yes Distance: 100 x2 Walk 10 feet (QC): 6 Walk 50 ft with 2 Turns(QC): 4 Gait Assistive Device: None slow pace, NBOS, slight path deviation, no LOB, decreased step height and length Neuromuscular standing on Airex: NBOS static stance 1 minute x2 reps, heel toe raises x20, SLS 30 sec x2 reps each LE. walking in // bars attempting without UE support, exaggerated gait fwd and retro [address], stepping over large bolster roll x10 each LE fwd and retro Treatments education, safety, bed mobility, transfers, gait, strength, high balance and NM re ed activities, functional mobility, activity tolerance Assessment Current Status: Good Progress PT Short Term Goals Short Term Goals Time Frame: May 12, 2019 Roll Left & Right: 4 (met) Sit to lyin (met) Lying to sitting on side of be: 4 (met) Sit to stand: 4 (met) Chair/vcv-hx-jgaga transfer: 4 (met) Toilet transfer: 4 Car transfer: 4 Walk 10 feet: 4 (met) Walk 50 feet with two turns: 4 (met) Walk 150 feet: 4 (met) Walking 10ft on uneven surface: 4 1 step (curb): 4 4 steps: 4 PT Control Systems Specialist Goals Control Systems Specialist Goals PT Control Systems Specialist Goals Time Frame: May 25, 2019 Roll Left & Right (QC): 6 Sit to Lying (QC): 6 Lying-Sitting on Side/Bed(QC): 6 Sit to Stand (QC): 6 Chair/Rts-sm-Haaal Xfer(QC): 6 Toilet Transfer (QC): 6 Car Transfer (QC): 6 Does the Patient Walk: Yes Walk 10 feet (QC): 6 Walk 50ft with 2 Turns (QC): 6 Walk 150 ft (QC): 6 Walking 10ft on Uneven Surface: 6 1 Step (curb) (QC): 6 4 Steps (QC): 6 12 Steps (QC): 6 Picking up an Object (QC): 4 Does the Pt use WC or Scooter?: No Type: N/A Type: N/A PT Plan Treatment/Plan Treatment Plan: Continue Plan of Care Treatment Plan: Bed Mobility, Education, Functional Activity [place], Functional Strength, Group Therapy, Gait, Safety, Therapeutic Exercise, Transfers Treatment Duration: May 25, 2019 Frequency: Modified Program (IRF) Estimated Hrs Per Day: 1.5 hours per day Patient and/or Family Agrees t: Yes Safety Risks/Education Patient Education: Gait Training, Transfer Techniques, Safety Issues Teaching Recipient: Patient Teaching Methods: Discussion Response to Teaching: Verbalize Understanding Time/GCodes Time In: 1002 Time Out: 1017 Total Billed Treatment Time: 15 Total Billed Treatment 1 visit, NM x1 unit 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
[2019-05-13 17:19] VITALS: BP 148/72
[2019-05-13] MEDS: DICLOFENAC 1% GEL 100 GM (VOLTAREN) TUBE TOP PRN (19:00)
[2019-05-13] MEDS: MELATONIN 3 MG TABLET PEG SCH (21:22)
[2019-05-13] MEDS: AMITRIPTYLINE 25 MG (ELAVIL) TAB PO SCH (21:22)
[2019-05-14] MEDS: oxyCODONE 5 MG/5 ML ORAL SOLN (roxiCODONE) 5 ML UDC PEG PRN ×3 (02:21→19:57)
[2019-05-14] MEDS: PANTOPRAZOLE 2 MG/ML LIQUID 200 ML (PROTONIX) PEG SCH ×3 (05:55)
[2019-05-14] MEDS: MULTIVITAMINS LIQUID 15 ML UDC PEG SCH (05:56)
[2019-05-14] MEDS: THIAMINE 100 MG (VITAMIN B-1) TAB PEG SCH (05:57)
[2019-05-14] MEDS: CYANOCOBALAMIN 1,000 MCG (VITAMIN B-12) TABLET PEG SCH (05:57)
[2019-05-14 06:00] VITALS: BP 124/74
[2019-05-14] MEDS: GABAPENTIN 400 MG (NEURONTIN) CAP PO SCH ×3 (09:48→21:23)
[2019-05-14] MEDS: FOLIC ACID 1 MG TAB PEG SCH (09:48)
[2019-05-14] MEDS: SENNA W/DOCUSATE (SENOKOT S) TABLET PO SCH ×2 (09:49→21:23)
[2019-05-14] MEDS: ENOXAPARIN 40 MG/0.4 ML (LOVENOX) SYR SC SCH (10:00)
[2019-05-14] MEDS: DICLOFENAC 1% GEL 100 GM (VOLTAREN) TUBE TOP SCH ×3 (10:00→21:24)
[2019-05-14] MEDS: POLYETHYLENE GLYCOL 17 GM (MIRALAX) PACK PO SCH ×2 (10:00→21:24)
--- NOTE | 2019-05-14 12:24 | PM&R Progress Note ---
Subjective HPI/CC On Admission Date Seen by Provider: May 14, 2019 Time Seen by Provider: 11:00 Subjective/Events-last exam Pt doing very well except severe neuropathy pain in his feet and toes but it is helped by the Diclofenac gel but not the Kpad Brother is visiting and he is a nurse and used to work at [employer] in [place] Coccyx pressure ulcer doing very well and nearly healed BM regular and has no issues with that Gabapentin scheduled 400mg PO TID and Q6hrs prn to help pain control but I did tell him that neuropathic pain is very difficult to treat Conferred with RN Reviewed therapy notes Reviewed meds and labs Review of Systems Musculoskeletal: leg pain, foot pain Depression Objective Exam Vital Signs Vital Signs Date Time Temp Pulse Resp B/P (MAP) Pulse Ox O2 Delivery O2 Flow Rate FiO2 05/14/19 09:14 Room Air 05/14/19 06:00 36.6 59 16 124/74 (91) 95 Capillary Refill : Less Than 3 Seconds General Appearance: No Apparent Distress, WD/WN, Chronically ill, Thin HEENT: PERRL/EOMI, Normal ENT Inspection, Pharynx Normal Neck: Full Range of Motion, Normal Inspection, Non Tender, Supple, Carotid Bruit Respiratory: Chest Non Tender, Lungs Clear, Normal Breath Sounds, No Accessory Muscle Use, No Respiratory Distress Cardiovascular: Regular Rate, Rhythm, No Edema, No Gallop, No JVD, No Murmur, Normal Peripheral Pulses Gastrointestinal: Normal Bowel Sounds, No Organomegaly, No Pulsatile Mass, Non Tender, Soft, Other (PEG tube in place) Back: Normal Inspection, No CVA Tenderness, No Vertebral Tenderness Extremity: Normal Capillary Refill, Normal Inspection, Normal Range of Motion, Non Tender, No Calf Tenderness, No Pedal Edema Neurologic/Psychiatric: Alert, Oriented x3, 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 FIM Transfers Therapy Code Descriptions/Definitions Functional [place] Measure: 0=Not Assessed/NA 4=Minimal Assistance 1=Total Assistance 5=Supervision or Setup 2=Maximal Assistance 6=Modified [place] 3=Moderate Assistance 7=Complete IndependenceSCALE: Activities may be completed with or without assistive devices. 2-Ewcmbmrtan-vqbqnbh completes the activity by him/herself with no assistance from a helper. 5-Set-up or Clean-up Assistance-helper sets up or cleans up; patient completes activity. [place] assists only prior to or following the activity. 4-Supervision or Touching Assistance-helper provides verbal cues and/or touching/steadying and/or contact guard assistance as patient completes activity. Assistance may be provided throughout the activity or intermittently. 3-Partial/Moderate Assistance-helper does LESS THAN HALF the effort. [place] lifts, holds or supports trunk or limbs, but provides less than half the effort. 2-Substantial/Maximal Assistance-helper does MORE THAN HALF the effort. [place] lifts or holds trunk or limbs and provides more than half the effort. 7-Jazrapbft-iahjyy does ALL the effort. Patient does none of the effort to complete the activity. Or, the assistance of 2 or more helpers is required for the patient to complete the activity. If activity was not attempted, code reason: 7-Patient Refused. 9-Not Applicable-not attempted and the patient did not perform the activity before the current illness, exacerbation or injury. 10-Not Attempted due to Environmental Limitations-(lack of equipment, weather restraints, etc.). 88-Not Attempted due to Medical Conditions or Safety Concerns. Roll Left to Right (QC): 6 Sit to Lying (QC): 6 Sit to Stand (QC): 6 Chair/Hyz-dl-Bqbzi Xfer(QC): 6 Car Transfer (QC): 6 Gait Training Does the Patient Walk?: Yes Distance: 100 x2 Walk 10 feet (QC): 6 Walk 50 ft with 2 Turns(QC): 4 Walk 150 ft (QC): 5 Walking 10ft/uneven surface-QC: 6 Gait Persons Needed: 1 (for PRG tube only) Gait Assistive Device: None Wheelchair Training Does the Pt Use a Wheelchair?: No Wheel 50 ft with 2 turns (QC): 9 Wheel 150 ft (QC): 9 Stair Training Stair Training: Handrails/: 1 handrail #of Steps: 4 1 Step (curb) (QC): 5 4 Steps (QC): 5 (x 2 sets) 12 Steps (QC): 88 Stairs: Pattern: Step to Balance Picking up an Object (QC): 88 ADL-Treatment Eating (QC): 6 (Pt completed meal independently seated up in bed.) Oral Hygiene (QC): 7 (Pt declined putting/cleaning dentures this a.m/) Bathing Location: L Arm, R Arm, L Upper Leg, R Upper Leg, L Lower Leg (including foot), R Lower Leg (including foot), Chest, Abdomen, Buttocks, Perineal Area Shower/Bathe Self (QC): 5 (Pt completed sponge bath seated at EOB with set up.) Upper Body Dressing (QC): 5 (Pt completed UB dressing seated EOB with set up.) Lower Body Dressing (QC): 4 (SBA required in stance to hike pants/underwear over hips.) On/Off Footwear (QC): 2 (Max assist to doff/don slipper socks.) Toileting Hygiene (QC): 7 (Pt declined using toilet.) Toilet Transfer (QC): 7 Assessment/Plan Assessment and Plan Assess & Plan/Chief Complaint 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 Dysphagia Aspiration risk now on nectar thickened liquids no food yet Former smoker Thin body status Depression Plan: TF Aspiration risk for food so only nectar thickened ST IRF protocol Pain medication at night now on scheduled thru the day too with Diclofenac gel and kpad added [place] thickened liquids Coccyx wound care [place] IBARRA planning (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
[2019-05-14 18:07] VITALS: BP 158/70
[2019-05-14] MEDS: AMITRIPTYLINE 25 MG (ELAVIL) TAB PO SCH (21:23)
[2019-05-14] MEDS: MELATONIN 3 MG TABLET PEG SCH (21:23)
[2019-05-15] MEDS: oxyCODONE 5 MG/5 ML ORAL SOLN (roxiCODONE) 5 ML UDC PEG PRN ×3 (00:04→17:00)
[2019-05-15 04:55] VITALS: BP 114/66
[2019-05-15] MEDS: CYANOCOBALAMIN 1,000 MCG (VITAMIN B-12) TABLET PEG SCH (05:17)
[2019-05-15] MEDS: THIAMINE 100 MG (VITAMIN B-1) TAB PEG SCH (05:17)
[2019-05-15] MEDS: PANTOPRAZOLE 2 MG/ML LIQUID 200 ML (PROTONIX) PEG SCH ×3 (05:17)
[2019-05-15] MEDS: MULTIVITAMINS LIQUID 15 ML UDC PEG SCH (05:17)
[2019-05-15 06:22] LABS: BASOPHILS % (AUTO) 0 % (0-10); EOSINOPHILS # (AUTO) 0.5 10^3/uL (0.0-0.3); EOSINOPHILS % (AUTO) 13 % (0-10); HEMATOCRIT 40 % (40-54); HEMOGLOBIN 13.1 G/DL (13.3-17.7); LYMPHOCYTES # (AUTO) 1.1 X 10^3 (1.0-4.0); LYMPHOCYTES % (AUTO) 29 % (12-44); MEAN CORPUSCULAR HEMOGLOBIN 35 PG (25-34); MEAN CORPUSCULAR HGB CONC 33 G/DL (32-36); MEAN CORPUSCULAR VOLUME 105 FL (80-99); MEAN PLATELET VOLUME 12.9 FL (7.4-10.4); MONOCYTES # (AUTO) 0.3 X 10^3 (0.0-1.0); MONOCYTES % (AUTO) 8 % (0-12); NEUTROPHILS # (AUTO) 1.9 X 10^3 (1.8-7.8); NEUTROPHILS % (AUTO) 50 % (42-75); PLATELET COUNT 133 10^3/uL (130-400); RED CELL DISTRIBUTION WIDTH 11.9 % (10.0-14.5); WHITE BLOOD COUNT 3.7 10^3/uL (4.3-11.0)
[2019-05-15 06:47] LABS: ALANINE AMINOTRANSFERASE 40 U/L (0-55); ALBUMIN 3.6 GM/DL (3.2-4.5); ALKALINE PHOSPHATASE 67 U/L (40-136); BILIRUBIN,TOTAL 0.3 MG/DL (0.1-1.0); BUN/CREATININE RATIO 17; CALCIUM 9.6 MG/DL (8.5-10.1); CARBON DIOXIDE 28 MMOL/L (21-32); CHLORIDE 102 MMOL/L (98-107); CREATININE SERUM 0.82 MG/DL (0.60-1.30); GFR ESTIMATED > 60; GLUCOSE 90 MG/DL (70-105); POTASSIUM 4.3 MMOL/L (3.6-5.0); SODIUM 140 MMOL/L (135-145); TOTAL PROTEIN 7.3 GM/DL (6.4-8.2)
--- NOTE | 2019-05-15 07:28 | Occupational Ther Daily Note ---
OT Current Status-Daily Note Subjective Pt alert, lying in bed. Pt states that his LE's hurt and wanted to maneuver w/c to therapy gym. Pt agrees to therapy. Mental Status/Objective Patient Orientation: Person, Place, Time, Situation Attachments: PEG Tube ADL-Treatment Pt agrees to shower. Pt collects clothing without AE and transports to bathroom. Pt completes functional transfer by self without AE. Completes shower using shower bench, grabbar and hand held shower by self. Pt completes dressing by self. Completes toileting, independently. Oral care sitting at sink, independently. Pt states that his friend has given him tub transfer bench and FWW. Pt ambulated to shower room and completed step in tub transfer, independently. Ambulated to laundry room carrying own clothing and completed by self. Therapy Code Descriptions/Definitions Functional [place] Measure: 0=Not Assessed/NA 4=Minimal Assistance 1=Total Assistance 5=Supervision or Setup 2=Maximal Assistance 6=Modified [place] 3=Moderate Assistance 7=Complete IndependenceSCALE: Activities may be completed with or without assistive devices. 0-Kcobtgnjxf-mznuiur completes the activity by him/herself with no assistance from a helper. 5-Set-up or Clean-up Assistance-helper sets up or cleans up; patient completes activity. [place] assists only prior to or following the activity. 4-Supervision or Touching Assistance-helper provides verbal cues and/or touching /steadying and/or contact guard assistance as patient completes activity. Assistance may be provided throughout the activity or intermittently. 3-Partial/Moderate Assistance-helper does LESS THAN HALF the effort. [place] lifts, holds or supports trunk or limbs, but provides less than half the effort. 2-Substantial/Maximal Assistance-helper does MORE THAN HALF the effort. [place] lifts or holds trunk or limbs and provides more than half the effort. 8-Wgdwnupra-xccpvu does ALL the effort. Patient does none of the effort to complete the activity. Or, the assistance of 2 or more helpers is required for the patient to complete the activity. If activity was not attempted, code reason: 7-Patient Refused. 9-Not Applicable-not attempted and the patient did not perform the activity before the current illness, exacerbation or injury. 10-Not Attempted due to Environmental Limitations-(lack of equipment, weather restraints, etc.). 88-Not Attempted due to Medical Conditions or Safety Concerns. Eating (QC): 88 Oral Hygiene (QC): 6 Bathing Location: L Arm, R Arm, L Upper Leg, R Upper Leg, L Lower Leg (including foot), R Lower Leg (including foot), Chest, Abdomen, Buttocks, Perineal Area Shower/Bathe Self (QC): 6 Upper Body Dressing (QC): 6 Lower Body Dressing (QC): 6 (Footwear (QC) 6) Toileting Hygiene (QC): 6 Toilet Transfer (QC): 6 Other Treatment Pt ambulated to therapy gym with AD. Completed arm bike for 20 min at 50 mosquera resistance without breaks. 3# hand wt exercises in all planes, 3 sets 10 reps. Resistive clothes pins 2x's with each hand. Exercises completed to increase overall UE strength for daily functional activities. After therapy, pt lying in bed with call light/phone in reach. All needs met in room. OT Fpc Goals Combat Systems Operator Goals Time Frame: May 18, 2019 Eating (QC): 6 Oral Hygiene (QC): 6 Toileting Hygiene (QC): 6 Shower/Bathe Self (QC): 6 Upper Body Dressing (QC): 6 (met) Lower Body Dressing (QC): 6 On/Off Footwear (QC): 6 Additional Goals: 1-Demonstrate ADL Tasks, 2-Verbalize Understanding, 3- ImproveStrength/[place] 1=Demonstrate adherence to instructed precautions during ADL tasks. 2=Patient will verbalize/demonstrate understanding of assistive devices/modifications for ADL. 3=Patient will improve strength/tolerance for activity to enable patient to perform ADL's. OT Education/Plan Problem List/Assessment Assessment: Decreased Activ Tolerance, Decreased UE Strength, Impaired Coordination, Impaired Funct Balance, Impaired Self-Care Skills Discharge Recommendations Plan/Recommendations: Continue POC Treatment Plan/Plan of Care Patient would benefit from OT for education, treatment and training to promote independence in ADL's, mobility, safety and/or upper extremity function for ADL's. Plan of Care: ADL Retraining, Functional Mobility, Group Exercise/Act as Ind, UE Funct Exercise/Act Treatment Duration: May 18, 2019 Frequency: At least 5 of 7 days/Wk (IRF) Estimated Hrs Per Day: 1.5 hours per day Agreement: Yes Rehab Potential: Good Time/GCodes Start Time: 07:15 Stop Time: 08:30 Total Time Billed (hr/min): 75 Billed Treatment Time 1 visit-ADL 2 (30 min) FA 2 (15 min) EX 2 (30 min) ELIZA AHN May 15, 2019 07:28 POS
[2019-05-15] MEDS: GABAPENTIN 400 MG (NEURONTIN) CAP PO SCH ×2 (09:07→13:31)
[2019-05-15] MEDS: FOLIC ACID 1 MG TAB PEG SCH (09:08)
[2019-05-15] MEDS: SENNA W/DOCUSATE (SENOKOT S) TABLET PO SCH (09:09)
[2019-05-15] MEDS: DICLOFENAC 1% GEL 100 GM (VOLTAREN) TUBE TOP PRN (09:23)
[2019-05-15] MEDS: POLYETHYLENE GLYCOL 17 GM (MIRALAX) PACK PO SCH (09:24)
[2019-05-15] MEDS: DICLOFENAC 1% GEL 100 GM (VOLTAREN) TUBE TOP SCH ×2 (09:24→11:13)
[2019-05-15] MEDS: ENOXAPARIN 40 MG/0.4 ML (LOVENOX) SYR SC SCH (09:33)
--- NOTE | 2019-05-15 09:47 | PM&R Progress Note ---
Subjective HPI/CC On Admission Date Seen by Provider: May 15, 2019 Time Seen by Provider: 08:30 Subjective/Events-last exam Pt doing very well except severe neuropathy pain in his feet and toes but it is helped by the Diclofenac gel but not the Kpad Brother is visiting and he is a nurse and used to work at [employer] in [place] Coccyx pressure ulcer doing very well and nearly healed BM regular and has no issues with that Gabapentin scheduled 400mg PO TID and Q6hrs prn to help pain control but I did tell him that neuropathic pain is very difficult to treat Conferred with RN Reviewed therapy notes Reviewed meds and labs Review of Systems Depression Objective Exam Vital Signs Vital Signs Date Time Temp Pulse Resp B/P (MAP) Pulse Ox O2 Delivery O2 Flow Rate FiO2 05/15/19 04:55 36.6 65 18 114/66 (82) 94 Room Air Capillary Refill : Less Than 3 Seconds General Appearance: No Apparent Distress, WD/WN, Chronically ill, Thin HEENT: PERRL/EOMI, Normal ENT Inspection, Pharynx Normal Neck: Full Range of Motion, Normal Inspection, Non Tender, Supple, Carotid Bruit Respiratory: Chest Non Tender, Lungs Clear, Normal Breath Sounds, No Accessory Muscle Use, No Respiratory Distress Cardiovascular: Regular Rate, Rhythm, No Edema, No Gallop, No JVD, No Murmur, Normal Peripheral Pulses Gastrointestinal: Normal Bowel Sounds, No Organomegaly, No Pulsatile Mass, Non Tender, Soft, Other (PEG tube in place) Back: Normal Inspection, No CVA Tenderness, No Vertebral Tenderness Extremity: Normal Capillary Refill, Normal Inspection, Normal Range of Motion, Non Tender, No Calf Tenderness, No Pedal Edema Neurologic/Psychiatric: Alert, Oriented x3, utility sales representative II-XII Norm as Tested, Depressed Affect, Motor Weakness (lower legs 3/5), Sensory Deficit Skin: Normal Color, Warm/Dry Lymphatic: No Adenopathy Results/Procedures Lab Laboratory Tests 05/15/19 06:10 Patient resulted labs reviewed. FIM Transfers Therapy Code Descriptions/Definitions Functional [place] Measure: 0=Not Assessed/NA 4=Minimal Assistance 1=Total Assistance 5=Supervision or Setup 2=Maximal Assistance 6=Modified [place] 3=Moderate Assistance 7=Complete IndependenceSCALE: Activities may be completed with or without assistive devices. 8-Nnfkpglwcr-vbpvapb completes the activity by him/herself with no assistance from a helper. 5-Set-up or Clean-up Assistance-helper sets up or cleans up; patient completes activity. [place] assists only prior to or following the activity. 4-Supervision or Touching Assistance-helper provides verbal cues and/or touching/steadying and/or contact guard assistance as patient completes activity. Assistance may be provided throughout the activity or intermittently. 3-Partial/Moderate Assistance-helper does LESS THAN HALF the effort. [place] lifts, holds or supports trunk or limbs, but provides less than half the effort. 2-Substantial/Maximal Assistance-helper does MORE THAN HALF the effort. [place] lifts or holds trunk or limbs and provides more than half the effort. 2-Uxmpodccr-ovjzjt does ALL the effort. Patient does none of the effort to complete the activity. Or, the assistance of 2 or more helpers is required for the patient to complete the activity. If activity was not attempted, code reason: 7-Patient Refused. 9-Not Applicable-not attempted and the patient did not perform the activity before the current illness, exacerbation or injury. 10-Not Attempted due to Environmental Limitations-(lack of equipment, weather restraints, etc.). 88-Not Attempted due to Medical Conditions or Safety Concerns. Roll Left to Right (QC): 6 Sit to Lying (QC): 6 Sit to Stand (QC): 6 Chair/Det-gh-Zojqt Xfer(QC): 6 Car Transfer (QC): 6 Gait Training Does the Patient Walk?: Yes Distance: 100 x2 Walk 10 feet (QC): 6 Walk 50 ft with 2 Turns(QC): 4 Walk 150 ft (QC): 5 Walking 10ft/uneven surface-QC: 6 Gait Persons Needed: 1 (for PRG tube only) Gait Assistive Device: None Wheelchair Training Does the Pt Use a Wheelchair?: No Wheel 50 ft with 2 turns (QC): 9 Wheel 150 ft (QC): 9 Stair Training Stair Training: Handrails/: 1 handrail #of Steps: 4 1 Step (curb) (QC): 5 4 Steps (QC): 5 (x 2 sets) 12 Steps (QC): 88 Stairs: Pattern: Step to Balance Picking up an Object (QC): 88 ADL-Treatment Eating (QC): 88 Oral Hygiene (QC): 6 Bathing Location: L Arm, R Arm, L Upper Leg, R Upper Leg, L Lower Leg (including foot), R Lower Leg (including foot), Chest, Abdomen, Buttocks, Perineal Area Shower/Bathe Self (QC): 6 Upper Body Dressing (QC): 6 Lower Body Dressing (QC): 6 (Footwear (QC) 6) On/Off Footwear (QC): 2 (Max assist to doff/don slipper socks.) Toileting Hygiene (QC): 6 Toilet Transfer (QC): 6 Assessment/Plan Assessment and Plan Assess & Plan/Chief Complaint Assess: Guillain [place] syndrome Leg pain from neuropathic source Dysphagia Aspiration risk now on nectar thickened liquids no food yet Former smoker Thin body status Depression Plan: TF Aspiration risk for food so only nectar thickened ST IRF protocol Pain medication at night now on scheduled thru the day too with Diclofenac gel and kpad added [place] thickened liquids Coccyx wound care Celexa DC planning (1) Guillain Tracy syndrome (2) Former smoker (3) History of pneumonia (4) History of respiratory failure (5) S/P percutaneous endoscopic gastrostomy (PEG) tube placement (6) Dysphagia (7) Decubitus ulcer (8) Acute depression RIANA STORY DO May 15, 2019 09:47 POS
--- NOTE | 2019-05-15 10:05 | Physical Therapy Daily Note ---
PT Daily Note-Current Subjective Agrees to PT. Reports he is anxious to do another swallow study today. Reports he walked alot over the weekend. Mental Status Patient Orientation: Person, Place, Time, Situation Transfers SCALE: Activities may be completed with or without assistive devices. 9-Cjffcbnhmi-ehjmboh completes the activity by him/herself with no assistance from a helper. 5-Set-up or Clean-up Assistance-helper sets up or cleans up; patient completes activity. [place] assists only prior to or following the activity. 4-Supervision or Touching Assistance-helper provides verbal cues and/or touching/steadying and/or contact guard assistance as patient completes activity. Assistance may be provided throughout the activity or intermittently. 3-Partial/Moderate Assistance-helper does LESS THAN HALF the effort. [place] lifts, holds or supports trunk or limbs, but provides less than half the effort. 2-Substantial/Maximal Assistance-helper does MORE THAN HALF the effort. [place] lifts or holds trunk or limbs and provides more than half the effort. 8-Mqhwyqzkq-gfkuqw does ALL the effort. Patient does none of the effort to complete the activity. Or, the assistance of 2 or more helpers is required for the patient to complete the activity. If activity was not attempted, code reason: 7-Patient Refused. 9-Not Applicable-not attempted and the patient did not perform the activity before the current illness, exacerbation or injury. 10-Not Attempted due to Environmental Limitations-(lack of equipment, weather restraints, etc.). 88-Not Attempted due to Medical Conditions or Safety Concerns. Roll Left & Right (QC): 6 Sit to Lying (QC): 6 Lying to Sitting/Side of Bed(Q: 6 Sit to Stand (QC): 6 Chair/Qiq-wj-Tlbyf Xfer(QC): 6 Toilet Transfer (QC): 6 Car Transfer (QC): 6 Pt requires no assist with functional transfers. Safe and without concern Gait Training Does the Patient Walk?: Yes Walk 10 feet (QC): 6 Walk 50 ft with 2 Turns(QC): 6 Walk 150 ft (QC): 6 Walking 10ft/uneven surface-QC: 6 Pt walks with and without a SPC. Indep to mod indep with gait with normal gait pattern and speed. Wheelchair Training Does the Pt Use a Wheelchair?: No Wheel 50 ft with 2 turns (QC): 9 Wheel 150 ft (QC): 9 Stair Training Stair Training: Handrails/: 1 handrail 1 Step (curb) (QC): 6 4 Steps (QC): 6 12 Steps (QC): 6 reciprocal gait pattern on steps; safe and steady Balance Picking up an Object (QC): 6 Exercises Standing: Hip Abduction, Hamstring curls, Heel/toe raises, 3 way Ex=Flex, Abd, Ext, Marching, Mini squats Standing Reps: 15 (on "airex" pad for functional strength and balance training to enhance skill on varied surfaces. ) NuStep Minutes: 10 (LE strength and functional activity tolerance progression to allow for self care at home) Treatments High level balance training on varied surface, steps, weaving, bending to brass pickler. All with the cane mod indep Assessment Current Status: Excellent Progress Indep with AD with all functional mobility. Safe transfers. Pt ad kyra in his room without safety concern. PT Short Term Goals Short Term Goals Time Frame: May 12, 2019 Roll Left & Right: 4 (met) Sit to lyin (met) Lying to sitting on side of be: 4 (met) Sit to stand: 4 (met) Chair/vtg-ff-kybip transfer: 4 (met) Toilet transfer: 4 Car transfer: 4 Walk 10 feet: 4 (met) Walk 50 feet with two turns: 4 (met) Walk 150 feet: 4 (met) Walking 10ft on uneven surface: 4 1 step (curb): 4 4 steps: 4 PT Alf Goals [place] Goals PT Alf Goals Time Frame: May 25, 2019 Roll Left & Right (QC): 6 Sit to Lying (QC): 6 Lying-Sitting on Side/Bed(QC): 6 Sit to Stand (QC): 6 Chair/Umh-ja-Vohzn Xfer(QC): 6 Toilet Transfer (QC): 6 Car Transfer (QC): 6 Does the Patient Walk: Yes Walk 10 feet (QC): 6 Walk 50ft with 2 Turns (QC): 6 Walk 150 ft (QC): 6 Walking 10ft on Uneven Surface: 6 1 Step (curb) (QC): 6 4 Steps (QC): 6 12 Steps (QC): 6 Picking up an Object (QC): 4 Does the Pt use WC or Scooter?: No Type: N/A Type: N/A PT Plan Problem List Problem List: Activity Tolerance, Safety Treatment/Plan Treatment Plan: Continue Plan of Care Treatment Plan: Bed Mobility, Education, Functional Activity [place], Functional Strength, Group Therapy, Gait, Safety, Therapeutic Exercise, Transfers Treatment Duration: May 25, 2019 Frequency: Modified Program (IRF) Estimated Hrs Per Day: 1.5 hours per day Patient and/or Family Agrees t: Yes Safety Risks/Education Patient Education: Safety Issues Teaching Recipient: Patient Teaching Methods: Discussion Response to Teaching: Verbalize Understanding Time/GCodes Time In: 900 Time Out: 1000 Total Billed Treatment Time: 60 Total Billed Treatment visit GT 15 NM 30 EX 15 ELIZA PRADHAN PT May 15, 2019 10:04 POS
--- NOTE | 2019-05-15 11:28 | ST Mod Barium Swallow ---
Speech Evaluation-General Medical Diagnosis Gullain-barre Syndrome Onset Date: May 04, 2019 Therapy Diagnosis Therapy Diagnosis: Oropharyngeal Dysphagia Precautions Precautions: Aspiration Precautions/Isolations: Aspiration Referral Referring Physician: Dr. Ackerman Medical History Pertinent Medical History: CABG Reviewed History: Yes Social History Home: Single Level Current Living Status: Children (his son lives with him) Speech Mod Barium Swallow Prior Level of Function Prior to patient's illness he was able to eat and drink anything he wanted. The patient has had a PEG during his illness. He completed an MBS on 05/09/19 with penetration noted with thin liquids and puree textures. He has had nectar consistency liquids since that time. Oral Motor Skills Lingual Protrusion: Normal Lingual ROM: Normal Lingual Strength: Normal Velum: Normal Volitional Dry Swallow: Yes Voluntary Cough: Yes Can Clear Throat Volitionally: Yes Textures-Lateral View Lateral View Food Presentation: Thin Liquid via Spoon, Thin Liquid via Straw, M[place] Liquid via Spoon, Pureed Solids, Ground Solids, Mechanial Soft Solids, Regular Solids Oral Phase Labial Closure: No Impairment (WFL) Bolus Formation Pooling L/R: Right Side Bolus Formation Placement: No Impairment (WFL) Mastication Rotary Chew: No Impairment (WFL) A/P Lingual Propulsion: No Impairment (WFL) Lingual Movement: No Impairment (WFL) Oral Phase Residue: No Impairment (WFL) Pharyngeal Phase Swallow Response: No Impairment (WFL) Base of Tongue: No Impairment (WFL) Epiglottic Movement: No Impairment (WFL) Laryngeal Elevation: No Impairment (WFL) Vallecular Residue: No Impairment (WFL) Pharyngeal Wall Residue: No Impairment (WFL) Piriform Sinus Residue: No Impairment (WFL) Laryngeal Penetration: None Aspiration Observations: None Esophageal Phase Peristalsis: WFL A/P Esophageal Propulsion Time: Less Than 5 Seconds Normal Performed-A/P View Not Applicable/Performed Summary/Impressions Oral Phase Impression: No Impairment (WFL) Patient's oropharyngeal dysphagia appears to be resolved based on MBS this date. Patient is recommended for regular diet level with thin liquids. Patient will continue to utilize compensatory strategies. Speech Short Term Goals Short Term Goals Short Term Goals 1) The patient will tolerate least restrictive diet level without s/s of aspiration at 90% or greater. 2) The patient will utilize compensatory strategies as trained for safety of oral intake given minimal cues at 90% or greater. 3) The patient will progress to oral intake for nutrition/hydration without PEG intake at 90% or greater. Speech Document Control Manager Goals [facility] Goals Patient will maintain adequate nutrition/hydration via oral and/or PEG. Speech-Plan Patient/Family Goals Patient/Family Goals: Patient plans to discharge to his home with family this week. Treatment Plan Speech Therapy Treatment Plan: Continue Plan of Care Patient was very excited to begin eating after not being able to for the past month. Treatment Duration: May 19, 2019 Frequency: 4 times per week Estimated Hrs Per Day: .5 hour per day Rehab Potential: Good Barriers to Learning: None identified Pt/Family Agrees to Plan: Yes Safety Risks/Education Teaching Recipient: Patient Teaching Methods: Discussion Response to Teaching: Verbalize Understanding Education Topics Provided: Continued safety with oral intake. Time Speech Therapy Time In: 10:00 Speech Therapy Time Out: 10:30 Total Billed Time: 30 Billed Treatment Time 1, MOD No QUALITY CODES: EXPRESSION OF IDEAS/WANTS: 4 UNDERSTANDING VERBAL CONTENT: 4 BRIEF INTERVIEW MENTAL STATUS: YES REPETITION OF 3 WORDS: 3 TEMPORAL ORIENTATION: YEAR: CORRECT, MONTH: CORRECT, DAY: CORRECT RECALL: SOCK: YES, COLOR: YES, BED: YES MEMORY/RECALL ABILITY: SEASON, STAFF NAMES, LOCATION OF ROOM AND THAT HE IS IN THE HOSPITAL JOYCANDE MEJAI May 15, 2019 11:28 POS
--- NOTE | 2019-05-15 11:51 | Diagnostic Imaging Report ---
INDICATION: Guillain-Tracy? syndrome. FINDINGS: Procedure was performed in conjunction with speech pathology. Video fluoroscopy was performed during the swallowing of barium in multiple consistencies. Total of 55 seconds of fluoroscopic time was utilized. Patient ingested nectar, thin, applesauce, banana, meat and cracker consistency. There is normal epiglottic tilt and laryngeal elevation. No penetration or aspiration was observed on today's study. IMPRESSION: Unremarkable modified barium swallow study. Dictated by: Dictated on workstation # [id number]
[2019-05-15] MEDS ORDERED: GABA-490 PO (12:22)
[2019-05-15] MEDS ORDERED: ACHD5005 PO (12:22)
[2019-05-15] MEDS ORDERED: DICL100G18 TOP (12:22)
[2019-05-15] MEDS ORDERED: FOLI1TAB24 PO (12:22)
[2019-05-15] MEDS ORDERED: THIA100T80 PO (12:22)
[2019-05-15] MEDS ORDERED: AMIT25TA9 PO (12:22)
--- NOTE | 2019-05-15 12:23 | Discharge Summary ---
Diagnosis/Chief Complaint Date of Admission May 04, 2019 at 12:44 Date of Discharge Discharge Date: May 15, 2019 Discharge Diagnosis Assess: Guillain [place] syndrome Leg pain from neuropathic source Dysphagia Aspiration risk now on nectar thickened liquids no food yet Former smoker Thin body status Depression Plan: TF Aspiration risk for food so only nectar thickened ST IRF protocol Pain medication at night now on scheduled thru the day too with Diclofenac gel and kpad added Jewett thickened liquids Coccyx wound care Celexa DC planning (1) Guillain Tracy syndrome (2) Former smoker (3) History of pneumonia (4) History of respiratory failure (5) S/P percutaneous endoscopic gastrostomy (PEG) tube placement (6) Dysphagia (7) Decubitus ulcer (8) Acute depression Discharge Summary Discharge Physical Examination Allergies: Coded Allergies: No Known Drug Allergies (Unverified , 09/23/10) Vitals & I&Os Vital Signs Date Time Temp Pulse Resp B/P (MAP) Pulse Ox O2 Delivery O2 Flow Rate FiO2 05/15/19 18:00 37.0 72 16 122/70 97 Room Air General Appearance: Alert, Oriented X3, Cooperative Respiratory: Clear to Auscultation Cardiovascular: Regular Rate Neuro: Normal Gait, Normal Speech, Strength at 5/5 X4 Ext Psych/Mental Status: Mental Status NL, Mood NL Hospital Course Was the Problem List Reviewed?: Yes Note from 05/15/19: White count is 3.7 today Swallow study scheduled for tomorrow which he is not pleased about Diclofenac gel helps the toe pain Bolus feeds are tolerated well and denies a significant nausea or vomiting Thickened coke is his preferred drink now Wants to go home soon Hospital course: patient had an uneventful hospital course for 12 days after transferred from [facility] due to severe debility and dysphagia aspiration risk following a Guillian [place] condition. Patient participated in therapy and had dramatic improvement in his abilities to walk and perform ADL's. PEG tube was managed with infusion transitioned to bolus feeds. Repeat swallow studies showed aspiration risk for nectar thickened liquids initiated but final swallow study revealed no aspiration risk so regular diet initiated and he was DC in improved condition. Labs (last 24 hrs) Laboratory Tests 05/05/19 05:25: White Blood Count 7.1, Red Blood Count 3.90L, Hemoglobin 13.4, Hematocrit 41, Mean Corpuscular Volume 105H, Mean Corpuscular Hemoglobin 34, Mean Corpuscular Hemoglobin Concent 33, Red Cell Distribution Width 12.5, Platelet Count 183, Mean Platelet Volume 12.8H, Neutrophils (%) (Auto) 65, Lymphocytes (%) (Auto) 20, Monocytes (%) (Auto) 9, Eosinophils (%) (Auto) 5, Basophils (%) (Auto) 1, Neutrophils # (Auto) 4.6, Lymphocytes # (Auto) 1.4, Monocytes # (Auto) 0.6, Eosinophils # (Auto) 0.4H, Basophils # (Auto) 0.0, Sodium Level 136, Potassium Level 4.5, Chloride Level 102, Carbon Dioxide Level 22, Anion Gap 12, Blood Urea Nitrogen 18, Creatinine 0.77, Estimat Glomerular Filtration Rate > 60, BUN/Creatinine Ratio 23, Glucose Level 106H, Calcium Level 9.9, Corrected Calcium 10.1, Total Bilirubin 0.6, Aspartate Amino Transf (AST/SGOT) 25, Alanine Aminotransferase (ALT/SGPT) 39, Alkaline Phosphatase 63, Total Protein 8.1, Albumin 3.8 05/08/19 04:30: White Blood Count 5.4, Red Blood Count 3.63L, Hemoglobin 12.4L, Hematocrit 38L, Mean Corpuscular Volume 105H, Mean Corpuscular Hemoglobin 34, Mean Corpuscular Hemoglobin Concent 33, Red Cell Distribution Width 12.3, Platelet Count 178, Mean Platelet Volume 12.9H, Neutrophils (%) (Auto) 53, Lymphocytes (%) (Auto) 30, Monocytes (%) (Auto) 9, Eosinophils (%) (Auto) 8, Basophils (%) (Auto) 0, Neutrophils # (Auto) 2.9, Lymphocytes # (Auto) 1.6, Monocytes # (Auto) 0.5, Eosinophils # (Auto) 0.4H, Basophils # (Auto) 0.0, Sodium Level 138, Potassium Level 4.4, Chloride Level 99, Carbon Dioxide Level 28, Anion Gap 11, Blood Urea Nitrogen 18, Creatinine 0.73, Estimat Glomerular Filtration Rate > 60, BUN/Creatinine Ratio 25, Glucose Level 113H, Calcium Level 9.4, Corrected Calcium 9.8, Total Bilirubin 0.3, Aspartate Amino Transf (AST/SGOT) 29, Alanine Aminotransferase (ALT/SGPT) 39, Alkaline Phosphatase 63, Total Protein 7.6, Albumin 3.5 05/11/19 05:25: White Blood Count 4.7, Red Blood Count 3.91L, Hemoglobin 13.5, Hematocrit 41, Mean Corpuscular Volume 104H, Mean Corpuscular Hemoglobin 35H, Mean Corpuscular Hemoglobin Concent 33, Red Cell Distribution Width 12.1, Platelet Count 162, Mean Platelet Volume 12.5H, Creatinine 0.79 05/15/19 06:10: White Blood Count 3.7L, Red Blood Count 3.78L, Hemoglobin 13.1L, Hematocrit 40, Mean Corpuscular Volume 105H, Mean Corpuscular Hemoglobin 35H, Mean Corpuscular Hemoglobin Concent 33, Red Cell Distribution Width 11.9, Platelet Count 133, Mean Platelet Volume 12.9H, Neutrophils (%) (Auto) 50, Lymphocytes (%) (Auto) 29, Monocytes (%) (Auto) 8, Eosinophils (%) (Auto) 13H, Basophils (%) (Auto) 0, Neutrophils # (Auto) 1.9, Lymphocytes # (Auto) 1.1, Monocytes # (Auto) 0.3, Eosinophils # (Auto) 0.5H, Basophils # (Auto) 0.0, Sodium Level 140, Potassium Level 4.3, Chloride Level 102, Carbon Dioxide Level 28, Anion Gap 10, Blood Urea Nitrogen 14, Creatinine 0.82, Estimat Glomerular Filtration Rate > 60, BUN/Creatinine Ratio 17, Glucose Level 90, Calcium Level 9.6, Corrected Calcium 9.9, Total Bilirubin 0.3, Aspartate Amino Transf (AST/SGOT) 26, Alanine Aminotransferase (ALT/SGPT) 40, Alkaline Phosphatase 67, Total Protein 7.3, Albumin 3.6 Pending Labs Laboratory Tests 05/05/19 05:25: White Blood Count 7.1, Red Blood Count 3.90, Hemoglobin 13.4, Hematocrit 41, Mean Corpuscular Volume 105, Mean Corpuscular Hemoglobin 34, Mean Corpuscular Hemoglobin Concent 33, Red Cell Distribution Width 12.5, Platelet Count 183, Mean Platelet Volume 12.8, Neutrophils (%) (Auto) 65, Lymphocytes (%) (Auto) 20, Monocytes (%) (Auto) 9, Eosinophils (%) (Auto) 5, Basophils (%) (Auto) 1, Neutrophils # (Auto) 4.6, Lymphocytes # (Auto) 1.4, Monocytes # (Auto) 0.6, Eosinophils # (Auto) 0.4, Basophils # (Auto) 0.0, Sodium Level 136, Potassium Level 4.5, Chloride Level 102, Carbon Dioxide Level 22, Anion Gap 12, Blood Urea Nitrogen 18, Creatinine 0.77, Estimat Glomerular Filtration Rate > 60, BUN/Creatinine Ratio 23, Glucose Level 106, Calcium Level 9.9, Corrected Calcium 10.1, Total Bilirubin 0.6, Aspartate Amino Transf (AST/SGOT) 25, Alanine Aminotransferase (ALT/SGPT) 39, Alkaline Phosphatase 63, Total Protein 8.1, Albumin 3.8 05/08/19 04:30: White Blood Count 5.4, Red Blood Count 3.63, Hemoglobin 12.4, Hematocrit 38, Mean Corpuscular Volume 105, Mean Corpuscular Hemoglobin 34, Mean Corpuscular Hemoglobin Concent 33, Red Cell Distribution Width 12.3, Platelet Count 178, Mean Platelet Volume 12.9, Neutrophils (%) (Auto) 53, Lymphocytes (%) (Auto) 30, Monocytes (%) (Auto) 9, Eosinophils (%) (Auto) 8, Basophils (%) (Auto) 0, Neutrophils # (Auto) 2.9, Lymphocytes # (Auto) 1.6, Monocytes # (Auto) 0.5, Eosinophils # (Auto) 0.4, Basophils # (Auto) 0.0, Sodium Level 138, Potassium Level 4.4, Chloride Level 99, Carbon Dioxide Level 28, Anion Gap 11, Blood Urea Nitrogen 18, Creatinine 0.73, Estimat Glomerular Filtration Rate > 60, BUN/Creatinine Ratio 25, Glucose Level 113, Calcium Level 9.4, Corrected Calcium 9.8, Total Bilirubin 0.3, Aspartate Amino Transf (AST/SGOT) 29, Alanine Aminotransferase (ALT/SGPT) 39, Alkaline Phosphatase 63, Total Protein 7.6, Albumin 3.5 05/11/19 05:25: White Blood Count 4.7, Red Blood Count 3.91, Hemoglobin 13.5, Hematocrit 41, Mean Corpuscular Volume 104, Mean Corpuscular Hemoglobin 35, Mean Corpuscular Hemoglobin Concent 33, Red Cell Distribution Width 12.1, Platelet Count 162, Mean Platelet Volume 12.5, Creatinine 0.79 05/15/19 06:10: White Blood Count 3.7, Red Blood Count 3.78, Hemoglobin 13.1, Hematocrit 40, Mean Corpuscular Volume 105, Mean Corpuscular Hemoglobin 35, Mean Corpuscular Hemoglobin Concent 33, Red Cell Distribution Width 11.9, Platelet Count 133, Mean Platelet Volume 12.9, Neutrophils (%) (Auto) 50, Lymphocytes (%) (Auto) 29, Monocytes (%) (Auto) 8, Eosinophils (%) (Auto) 13, Basophils (%) (Auto) 0, Neutrophils # (Auto) 1.9, Lymphocytes # (Auto) 1.1, Monocytes # (Auto) 0.3, Eosinophils # (Auto) 0.5, Basophils # (Auto) 0.0, Sodium Level 140, Potassium Level 4.3, Chloride Level 102, Carbon Dioxide Level 28, Anion Gap 10, Blood Urea Nitrogen 14, Creatinine 0.82, Estimat Glomerular Filtration Rate > 60, BUN/Crea tinine Ratio 17, Glucose Level 90, Calcium Level 9.6, Corrected Calcium 9.9, Total Bilirubin 0.3, Aspartate Amino Transf (AST/SGOT) 26, Alanine Aminotransferase (ALT/SGPT) 40, Alkaline Phosphatase 67, Total Protein 7.3, Albumin 3.6 Discharge Home Medications: Active Scripts Active Vitamin B-1 (Thiamine HCl) 100 Mg Tablet 100 Mg PO DAILY@0700 Folic Acid 1 Mg Tablet 1 Mg PO DAILY Amitriptyline HCl 25 Mg Tablet 25 Mg PO HS Gabapentin 400 Mg Capsule 400 Mg PO TID Hydrocodone/Acetaminophen 5/325mg Tablet (Acetaminophen/Hydrocodone Bitart) 1 Tab Tab 1 Tab PO Q4H PRN Voltaren (Diclofenac Sodium) 100 Gm Gel..gram. 0 Gm TOP TID Reported Guaifenesin Dm Syrup (Guaifenesin/Dextromethorphan) 5 Ml Syrup 10 Ml PO Q4H PRN Instructions to patient/family Please see electronic discharge instructions given to patient. Diagnosis/Problems Diagnosis/Problems (1) Guillain Tracy syndrome (2) Former smoker (3) History of pneumonia (4) History of respiratory failure (5) S/P percutaneous endoscopic gastrostomy (PEG) tube placement (6) Dysphagia (7) Decubitus ulcer (8) Acute depression Clinical Quality Measures DVT/VTE Risk/Contraindication: Risk Factor Score Per Nursin RFS Level Per Nursing on Admit: 3=High RIANA STORY DO May 15, 2019 12:23 POS
--- NOTE | 2019-05-15 12:25 | D/C HH Face to Face Order ---
D/C Face to Face Orders Reconcile Patient Problems Problems Reviewed?: Yes Instructions for Patient Home Health Patient Instructions/FollowUp: [facility] 1 week Physician to follow Patient: [facility] Discharge Diet for Home: Regular Diet Patient Problems: Guillian [place] Dysphagia Goals for Patient: Return to independent living Patient Data-Allergies,Ht & Wt Patient Allergies: Coded Allergies: No Known Drug Allergies (Unverified , 09/23/10) Home Health Need/Face to Face Date of Face to Face: May 15, 2019 Clinical Findings: Generalized weakness and fatigue, Instability, Muscle weakness, Unsteady gait I have seen Pt [id number]: Yes Discharged To: Home Diagnosis/Conditions: Guillian [place] Dysphagia Patient is Homebound due to: Muscle weakness Homebound Status Due to the above stated illness, injury or surgical procedure (medical condition or diagnosis) and associated clinical findings, the patient is homebound because of his/her inability to leave home except with aid of a supportive device and/or person AND leaving the home requires a considerable and taxing effort or is medically contraindicated. Pt req the following assistanc: Walker Home Health Nursing Orders Home Health Services Order: Nursing Services (flush peg tube as directed per standard protocol), Physical Therapy-Evaluate & Treat, Speech Language-Evaluate & Treat Certify Stmt I certify that this patient is under my care and that I, a nurse practitioner or a physician; a professional nursing assistant working with me, had a face to face encounter that - meets the physician face to face encounter requirements with this patient as dated. RIANA STORY DO May 15, 2019 12:25 POS
--- NOTE | 2019-05-15 13:55 | Therapy Team Discharge Summary ---
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 He had limited functional activity tolerance and was very weak with safety concerns. Treatment has focused on functional strength, balance, safety and mobility progression. He has made excellent progress and has achieved all goals. He is mod indep with gait using a cane, and walks without AD with supervision. He is indep with bed mobility and transfers. He is to discharge home and recommend follow up therapy for continued strengthening. Occupational Therapy Decreased Activ Tolerance, Decreased UE Strength, Impaired Coordination, Impaired Funct Balance, Impaired Self-Care Skills PT Detention Goals Detention Goals PT Senior Premium Auditor Goals Time Frame: May 25, 2019 Roll Left to Right (QC): 6 (met) Sit to Lying (QC): 6 (met) Lying-Sitting on Side/Bed(QC): 6 (met) Sit to Stand (QC): 6 (met) Chair/[id number]-Kxbqv Xfer(QC): 6 (met) Car Transfer (QC): 6 (met) Does the Patient Walk: Yes Walk 10 feet (QC): 6 (met) Walk 10ft-Uneven Surface(QC): 6 (met) Walk 50ft with 2 Turns (QC): 6 (et) Walk 150 ft (QC): 6 (met) Does the Pt use WC or Scooter?: No 1 Step (curb) (QC): 6 (met) 4 Steps (QC): 6 (met) 12 Steps (QC): 6 (met) Picking up an Object (QC): 4 (exceeded) OT Detention Goals Senior Premium Auditor Goals Time Frame: May 18, 2019 Eating (QC): 6 Oral Hygiene (QC): 6 Shower/Bathe Self (QC): 6 Upper Body Dressing (QC): 6 (met) Lower Body Dressing (QC): 6 On/Off Footwear (QC): 6 Toileting Hygiene (QC): 6 Toilet/Commode Transfer (QC): 6 Additional Goals: 1-Demonstrate ADL Tasks, 2-Verbalize Understanding, 3- ImproveStrength/Lavern 1=Demonstrate adherence to instructed precautions during ADL tasks. 2=Patient will verbalize/demonstrate understanding of assistive devices/modifications for ADL. 3=Patient will improve strength/tolerance for activity to enable patient to perform ADL's. Speech Senior Premium Auditor Goals Senior Premium Auditor Goals Patient will maintain adequate nutrition/hydration via oral and/or PEG. ELIZA PRADHAN PT May 15, 2019 13:55 POS
--- NOTE | 2019-05-15 15:12 | Therapy Team Discharge Summary ---
Therapy Discharge Summary Discharge Recommendations Date of Discharge 05-15-19 Therapy D/C Recommendations: Home w/ Family Support, Physical Therapy Outpatient Occupational Therapy Pt. has been seen by occupational therapy to increase overall strength and independence with daily tasks. Pt. has met all goals. Pt. discharged home with family support. PT Usp Goals Usp Goals PT Usp Goals Time Frame: May 25, 2019 Roll Left to Right (QC): 6 (met) Sit to Lying (QC): 6 (met) Lying-Sitting on Side/Bed(QC): 6 (met) Sit to Stand (QC): 6 (met) Chair/[id number]-Kofqb Xfer(QC): 6 (met) Car Transfer (QC): 6 (met) Does the Patient Walk: Yes Walk 10 feet (QC): 6 (met) Walk 10ft-Uneven Surface(QC): 6 (met) Walk 50ft with 2 Turns (QC): 6 (et) Walk 150 ft (QC): 6 (met) Does the Pt use WC or Scooter?: No 1 Step (curb) (QC): 6 (met) 4 Steps (QC): 6 (met) 12 Steps (QC): 6 (met) Picking up an Object (QC): 4 (exceeded) OT Executive Coordinator Goals Usp Goals Time Frame: May 18, 2019 Eating (QC): 6 (met) Oral Hygiene (QC): 6 (met) Shower/Bathe Self (QC): 6 (met) Upper Body Dressing (QC): 6 (met) Lower Body Dressing (QC): 6 (met) On/Off Footwear (QC): 6 (met) Toileting Hygiene (QC): 6 (met) Toilet/Commode Transfer (QC): 6 (met) Additional Goals: 1-Demonstrate ADL Tasks, 2-Verbalize Understanding, 3-ImproveStrength/Lavern 1=Demonstrate adherence to instructed precautions during ADL tasks. 2=Patient will verbalize/demonstrate understanding of assistive devices/modifications for ADL. 3=Patient will improve strength/tolerance for activity to enable patient to perform ADL's. Speech Executive Coordinator Goals Usp Goals Patient will maintain adequate nutrition/hydration via oral and/or PEG. LISBET BECKWITH OT May 15, 2019 15:12 POS
--- NOTE | 2019-05-15 15:35 | NUR ---
RD ASSESSMENT Pt was awake and pleasant during follow-up. Pt states tolerating his bolus feeds very well since last assessment. Pt states he passed his swallow evaluation this morning. Note MBS report states he is able to tolerate regular diet and thin liquids, per chart review. INTERVENTION: Advance diet to regular diet. Will continue to follow and reassess as pt needs and status change. Tiffanie Queen, MS, RD, LD
[2019-05-15 16:02] VITALS: BP 122/70
--- NOTE | 2019-05-15 16:29 | NUR ---
Physician and patient in agreement for discharge today based on current medical/nutritional status and LOF. [facility]: Coordinated with [facility] for RN and PT, only available agency in immediate service area. Staff did call two others and were informed neither could accept new patients at this time. Patient understood and was in agreement for [place] referral. Medicare Home Health [facility] provided. Patient does still have the PEG but has been cleared for full oral feeding. DME: Patient stated a friend has a FWW and a shower chair at his home for him. He has grab bars but has not yet installed them. PCP: Patient does not have a PCP, discussed community options with patient and he agreed to a referral with Dr. Dawson Browne, [facility], . Dr. Browne staff will contact patient at his home to schedule appointment, information provided as part of patient discharge packet. FOLLOWUP: In addition to local establishment of PCP, patient is aware of [facility] followup and is considering transportation options re same. Patient arranged for his own transport home this date. Unit RN fully updated about arrangements.
[2019-05-15 18:00] VITALS: BP 122/70
--- NOTE | 2019-05-16 08:07 | Therapy Team Discharge Summary ---
Therapy Discharge Summary Discharge Recommendations Date of Discharge May 15, 2019 at 18:00 Therapy D/C Recommendations: Home w/ Family Support, Physical Therapy Outpatient Speech-Language Pathology Patient was admitted to the ARU s/p Guillaine Ephraim Syndrome. Patient had a PEG placed at prior to admit to ARU. Patient completed MBS on 05/09/19 with penetration noted on thin and puree. A repeat MBS on 05/15/19 indicated no difficulty with any consistency. Patient was placed on regular with thin. Patient met ST goals and was discharged to home on 05/15/19. PT Cover Inspector Goals Residential Goals PT Residential Goals Time Frame: May 25, 2019 Roll Left to Right (QC): 6 (met) Sit to Lying (QC): 6 (met) Lying-Sitting on Side/Bed(QC): 6 (met) Sit to Stand (QC): 6 (met) Chair/Qnf-uu-Hmlfu Xfer(QC): 6 (met) Car Transfer (QC): 6 (met) Does the Patient Walk: Yes Walk 10 feet (QC): 6 (met) Walk 10ft-Uneven Surface(QC): 6 (met) Walk 50ft with 2 Turns (QC): 6 (et) Walk 150 ft (QC): 6 (met) Does the Pt use WC or Scooter?: No 1 Step (curb) (QC): 6 (met) 4 Steps (QC): 6 (met) 12 Steps (QC): 6 (met) Picking up an Object (QC): 4 (exceeded) OT Residential Goals Residential Goals Time Frame: May 18, 2019 Eating (QC): 6 (met) Oral Hygiene (QC): 6 (met) Shower/Bathe Self (QC): 6 (met) Upper Body Dressing (QC): 6 (met) Lower Body Dressing (QC): 6 (met) On/Off Footwear (QC): 6 (met) Toileting Hygiene (QC): 6 (met) Toilet/Commode Transfer (QC): 6 (met) Additional Goals: 1-Demonstrate ADL Tasks, 2-Verbalize Understanding, 3- ImproveStrength/Lavern 1=Demonstrate adherence to instructed precautions during ADL tasks. 2=Patient will verbalize/demonstrate understanding of assistive devices/modifications for ADL. 3=Patient will improve strength/tolerance for activity to enable patient to perform ADL's. Speech Residential Goals Cover Inspector Goals Patient will maintain adequate nutrition/hydration via oral and/or PEG. Met CANDE HAMILTON May 16, 2019 08:07 POS
--- NOTE | 2019-05-17 08:38 | NUR ---
Post discharge update. Patient was accepted to practice of Dr. Dawson Browne for PCP, first appointment 05/24/19.
== END 2019-05-15 18:00 | disposition home health service (06) | DRG 95 ==
PROVIDERS: ADMIT Internal Medicine; ATTEND Internal Medicine
DX: G61.0 Guillain-Barre syndrome (principal); G82.20 Paraplegia, unspecified; R13.10 Dysphagia, unspecified; G57.93 Unspecified mononeuropathy of bilateral lower limbs; L89.151 Pressure ulcer of sacral region, stage 1; Z93.1 Gastrostomy status; F41.9 Anxiety disorder, unspecified; F32.9 Major depressive disorder, single episode, unspecified; Z87.891 Personal history of nicotine dependence; Z87.01 Personal history of pneumonia (recurrent); Z87.09 Personal history of other diseases of the respiratory system
CPT/HCPCS: 36415; 74230; 80053; 82565; 85025; 85027